=== PATIENT | female | born 1990 | race Caucasian/White ===

== ENCOUNTER 2017-04-10 20:34 | Emergency (ER) | payer OTHER ==
[~2017-04-10] VITALS: Ht 162.6 cm; Wt 95.6 kg
[~2017-04-10 20:34] MED LIST: ALBU0.08 NEB; BENZ100 PO; CLIN1CAP6 PO; IPRA0.02 NEB; NEBULIZER/ADULT1 KIT; VENTAER INH
[2017-04-10 20:37] VITALS: BP 129/78; PULSE 85; RESP 18; TEMP 98.4; O2SAT 97
[2017-04-10] MEDS ORDERED: SODIUM CHLOR 0.9% 1000 ML INJ 1,000 ML IV ONE (21:24)
--- NOTE | 2017-04-10 21:24 | PD ---
HPI Chief Complaint: Dizziness Time Seen by Provider: 21:24 Travel History International Travel<30 days: No Contact w/Intl Traveler<30days: No Traveled to known affect area: No History of Present Illness HPI Patient is a 27-year-old female with a history of sleep apnea presents emergency department with headache for the past 5 days now with some mild vertiginous symptoms. Patient states that she's had a history of migraines before but this is somewhat different feels like there something behind her left eye. Denies any visual loss focalized weakness or abrupt onset. Patient states she is not yet been fitted with her CPAP mass. She's tried multiple doses of Aleve at home without relief. She talked with her repair welder Dr. King who recommended that if the headache lasted for 5 days to come into the emergency department. Denies any fever chest pain abdominal pain PFSH Past Medical History Hx Anticoagulant Therapy: No Arthritis: No Asthma: Yes Autoimmune Disease: No Blood Disorders: No Anxiety: Yes Depression: Yes (few years ago deal with it naturally) Cancer: No Cardiovascular Problems: No Chemotherapy: No Cerebrovascular Accident: No Diabetes: No Diminished Hearing: No Endocrine: No Gastrointestinal Disorders: No Genitourinary: Yes Immune Disorder: No Implanted Vascular Access Dvce: No Musculoskeletal: No Neurologic: No Psychiatric: No Reproductive: No Respiratory: Yes Immunizations Current: Yes Migraines: Yes Seizures: No Thyroid Disease: No ?: Not LMP: on it now : 0 Para: 0 Ovarian Cysts: Yes (2006) Past Surgical History Body Medical Devices: NOSE & TONGUE PIERCINGS Hysterectomy: No Oral Surgery: Yes (TONGUE CORD) Thoracic Surgery: Yes (BREAST REDUCTION) Tonsillectomy: Yes (ADNOIDS ALSO REMOVED) Other Surgery: Yes Social History Alcohol Use: Yes ("VERY RARE") Tobacco Use: No (QUIT 04/2015, 1 PPD prior) Substance Use: No Allergies-Medications (Allergen,Severity, Reaction): Coded Allergies: Basil (Verified Allergy, Severe, HIVES, 08/16/16) Doxycycline (Unverified Allergy, Severe, Anaphylaxis, 08/16/16) Macrobid (Verified Allergy, Severe, Nausea/Vomiting, 08/16/16) Ciprofloxacin (Verified Allergy, Mild, VOMITING, 08/16/16) Bactrim (Verified Adverse Reaction, Mild, n/v, 08/16/16) Codeine (Verified Adverse Reaction, Mild, "I BECOME CRAZY", 08/16/16) *MDRO Multi-Drug Resistant Organism (Verified Adverse Reaction, Unknown, 08/24/16) MRSA (sputum-08/22/16); MRSA (neck-08/20/16) Reported Meds & Prescriptions Reported Meds & Active Scripts Active Albuterol Neb (Albuterol Sulfate) 2.5 Mg/3 Ml Neb 2.5 Mg NEB QID NEB 30 Days Reported Breo Ellipta Inh (Fluticasone/Vilanterol) 100-25 Mcg/Act Inh 1 Puff INH DAILY Use daily at the same time. Ventolin Hfa 18 GM Inh (Albuterol Sulfate) 90 Mcg/Act Aer 1 Puff INH Q4H PRN Review of Systems Except as stated in HPI: all other systems reviewed are Neg Physical Exam Narrative GENERAL: Well-developed well-nourished no apparent distress SKIN: Focused skin assessment warm/dry. No rash no wound HEAD: Atraumatic. Normocephalic. EYES: Pupils equal and round. No scleral icterus. No injection or drainage. His fundi bilaterally, ENT: No nasal bleeding or discharge. Mucous membranes pink and moist. NECK: Trachea midline. No JVD. CARDIOVASCULAR: Regular rate and rhythm. No murmur appreciated. RESPIRATORY: No accessory muscle use. Clear to auscultation. Breath sounds equal bilaterally. GASTROINTESTINAL: Abdomen soft, non-tender, nondistended. Hepatic and splenic margins not palpable. MUSCULOSKELETAL: No obvious deformities. No clubbing. No cyanosis. No edema. NEUROLOGICAL: Awake and alert. Cranial nerves II through XII are grossly intact and nonfocal, 5 out of 5 strength in all 4 extremity's. Cerebellar testing negative.. PSYCHIATRIC: Appropriate mood and affect; insight and judgment normal. Data Data Last Documented VS Vital Signs Date Time Temp Pulse Resp B/P Pulse Ox O2 Delivery O2 Flow Rate FiO2 04/10/17 23:13 69 20 112/68 98 04/10/17 20:37 98.4 Orders Urinalysis - C+S If Indicated (04/10/17 21:13) Ed Urine Pregnancytest Poc (04/10/17 21:13) Complete Blood Count With Diff (04/10/17 21:24) Comprehensive Metabolic Panel (04/10/17 21:24) Ecg Monitoring (04/10/17 21:24) Iv Access Insert/Monitor (04/10/17 21:24) Oximetry (04/10/17 21:24) Sodium Chloride 0.9% Flush (Ns Flush) (04/10/17 21:30) Ketorolac Inj (Toradol Inj) (04/10/17 21:30) Prochlorperazine Inj (Compazine Inj) (04/10/17 21:30) Diphenhydramine Inj (Benadryl Inj) (04/10/17 21:30) Sodium Chlor 0.9% 1000 Ml Inj (Ns 1000 M (04/10/17 21:24) Electrocardiogram (04/10/17 ) Labs Laboratory Tests Test 04/10/17 22:20 White Blood Count 8.1 TH/MM3 Red Blood Count 4.29 MIL/MM3 Hemoglobin 12.8 GM/DL Hematocrit 37.6 % Mean Corpuscular Volume 87.6 FL Mean Corpuscular Hemoglobin 29.7 PG Mean Corpuscular Hemoglobin 34.0 % Concent Red Cell Distribution Width 12.4 % Platelet Count 213 TH/MM3 Mean Platelet Volume 9.4 FL Neutrophils (%) (Auto) 59.9 % Lymphocytes (%) (Auto) 31.1 % Monocytes (%) (Auto) 7.1 % Eosinophils (%) (Auto) 1.4 % Basophils (%) (Auto) 0.5 % Neutrophils # (Auto) 4.9 TH/MM3 Lymphocytes # (Auto) 2.5 TH/MM3 Monocytes # (Auto) 0.6 TH/MM3 Eosinophils # (Auto) 0.1 TH/MM3 Basophils # (Auto) 0.0 TH/MM3 CBC Comment DIFF FINAL Differential Comment Sodium Level 144 MEQ/L Potassium Level 3.7 MEQ/L Chloride Level 108 MEQ/L Carbon Dioxide Level 28.7 MEQ/L Anion Gap 7 MEQ/L Blood Urea Nitrogen 11 MG/DL Creatinine 0.72 MG/DL Estimat Glomerular Filtration 96 ML/MIN Rate Random Glucose 80 MG/DL Calcium Level 8.8 MG/DL Total Bilirubin 0.2 MG/DL Aspartate Amino Transf 11 U/L (AST/SGOT) Alanine Aminotransferase 18 U/L (ALT/SGPT) Alkaline Phosphatase 55 U/L Total Protein 6.9 GM/DL Albumin 3.6 GM/DL MDM Medical Decision Making Medical Screen Exam Complete: Yes Emergency Medical Condition: Yes Interpretation(s) EKG shows normal sinus rhythm normal axis normal R-wave progression. No concerning ST segment changes. Intervals within normal limits. This a normal EKG. Differential Diagnosis Headache, anemia, unlikely, Narrative Course Patient roomed in emergency department, adamantly declined sexual activity and possibility for . She was given Benadryl and Compazine and on revisit she is sleeping soundly. Neurologic exam is completely within normal limits and therefore no indication for CAT scan at this time. Patient's hemoglobin was within normal limits electrolytes are within normal limits. I discussed the results of patient's she is sleeping soundly and in no distress. She stable for discharge and outpatient workup. She does have Imitrex at home. Diagnosis Primary Impression: Headache Disposition: 01 DISCHARGE HOME Condition: Stable Malachi Mir MD Apr 10, 2017 21:24
[2017-04-10] MEDS ORDERED: SODIUM CHLORIDE 0.9% FLUSH 10 ML FLUSH IVF PRN (21:30)
[2017-04-10] MEDS ORDERED: KETOROLAC TROMETHAMINE 30 MG/ML (IVP) VIAL IVP ONE (21:30)
[2017-04-10] MEDS ORDERED: diphenhydrAMINE HCL 50 MG/ML VIAL IVP ONE (21:30)
[2017-04-10] MEDS ORDERED: PROCHLORPERAZINE INJ 10 MG/2 ML VIAL IVP ONE (21:30)
[2017-04-10] MEDS ORDERED: FLUT1INH INH (21:52)
[2017-04-10 22:20] VITALS: BP 118/78; PULSE 72; RESP 20; O2SAT 99
[2017-04-10 22:29] LABS: AUTOMATED NEUTROPHIL # 4.9 TH/MM3 (1.8-7.7); BASOPHIL % 0.5 % (0.0-2.0); EOSINOPHIL # 0.1 TH/MM3 (0-0.4); EOSINOPHIL % 1.4 % (0.0-4.0); HEMATOCRIT 37.6 % (35.0-46.0); HEMO FLAGS DIFF FINAL; LYMPH % 31.1 % (9.0-44.0); LYMPHOCYTE # 2.5 TH/MM3 (1.0-4.8); MEAN CELL VOLUME 87.6 FL (80.0-100.0); MEAN CORPUSCULAR HEMOGLOBIN 29.7 PG (27.0-34.0); MONO % 7.1 % (0.0-8.0); NEUT % 59.9 % (16.0-70.0); PLATELET COUNT 213 TH/MM3 (150-450); RED BLOOD COUNT 4.29 MIL/MM3 (4.00-5.30); RED CELL DISTRIBUTION WIDTH 12.4 % (11.6-17.2); WHITE BLOOD COUNT 8.1 TH/MM3 (4.0-11.0)
[2017-04-10 22:37] LABS: CHLORIDE 108 MEQ/L (98-107); POTASSIUM 3.7 MEQ/L (3.5-5.1); SODIUM (NA) 144 MEQ/L (136-145)
[2017-04-10 22:41] LABS: ANION GAP 7 MEQ/L (5-15); BICARBONATE 28.7 MEQ/L (21.0-32.0); BLOOD UREA NITROGEN 11 MG/DL (7-18)
[2017-04-10 22:44] LABS: ALT (GPT) 18 U/L (10-53); AST (GOT) 11 U/L (15-37); GLOMERULAR FILTRATION RATE 96 ML/MIN (>89)
[2017-04-10 22:46] LABS: TOTAL BILIRUBIN ADULT 0.2 MG/DL (0.2-1.0)
[2017-04-10 22:47] LABS: ALKALINE PHOSPHATASE 55 U/L (45-117)
[2017-04-10 23:13] VITALS: BP 112/68
--- NOTE | 2017-04-11 12:16 | EKG ---
Date Performed: 04/10/2017 Time Performed: 21:32:05 PTAGE: 27 years EKG: Sinus rhythm NORMAL ECG PREVIOUS TRACING : 08/19/2016 10.37 Compared to prior tracing no significant change DOCTOR: Saleem Jackson Interpretating Date/Time 04/11/2017 12:12:38
== END 2017-04-10 23:17 | disposition home or self-care (01) ==
LOC: PHED 20:34
DX: R51 Headache (principal)
CPT/HCPCS: 80053; 85025; 93005; 96374; 96375; 99284; J0780; J1200; J1885; J7030

== ENCOUNTER 2017-05-25 08:04 | Observation (INO) | payer OTHER ==
[~2017-05-25] VITALS: Ht 162.6 cm; Wt 99.5 kg
[~2017-05-25 08:04] MED LIST changes: -BENZ100 PO; -CLIN1CAP6 PO; +FLUT1INH INH; -IPRA0.02 NEB; +LIDOCAINE 1%/EPINEPHrine 1:100,000 SOLN 20 ML VIAL ONE; +LORA-373 PO; +MECL-62 PO; -NEBULIZER/ADULT1 KIT; +OLOP.1%O EACH EYE; +OXYMETAZOLINE HCL 0.05% 15 ML NASAL SPRAY ONE
[2017-05-25 08:39] VITALS: BP 129/74; PULSE 79; RESP 16; TEMP 98.1; O2SAT 99
[2017-05-25] MEDS ORDERED: TYLE325T PO (08:55)
[2017-05-25] MEDS ORDERED: CHLORHEXIDINE GLUCONATE 2 % 1 PACK (2 CLOTHS) TOPICAL PRN (09:15)
[2017-05-25] MEDS ORDERED: SODIUM CHLORID 0.9% 500 ML IV PRN (09:15)
[2017-05-25] MEDS ORDERED: POVIDONE IODINE 5% (ANTISEPSIS KIT) 4 APPLICATIONS EACH NARE PRN (09:15)
[2017-05-25] MEDS ORDERED: METOPROLOL TARTRATE 25 MG TAB PO PRN (09:15)
[2017-05-25] MEDS ORDERED: LACTATED RINGER'S 1000 ML IV PRN (09:15)
[2017-05-25] MEDS ORDERED: INSULIN HUMAN REGULAR 1,000 UNITS/10 ML VIAL SQ PRN (09:15)
[2017-05-25] MEDS ORDERED: CLINDAMYCIN 600 MG/NS 100 ML IV PRN ×2 (09:15)
[2017-05-25] MEDS ORDERED: SODIUM CHLORIDE 0.9% INJ 100 ML ONE (09:19)
[2017-05-25] MEDS ORDERED: MIDAZOLAM HCL 2 MG/2 ML VIAL ONE (09:19)
[2017-05-25] MEDS ORDERED: CLINDAMYCIN PHOS 900 MG/6 ML VIAL ONE (09:19)
[2017-05-25] MEDS ORDERED: FAMOTIDINE 20 MG/2 ML VIAL ONE (09:19)
[2017-05-25] MEDS ORDERED: PROPOFOL 200 MG/20 ML AMP IV ONE (12:00)
[2017-05-25] MEDS ORDERED: ONDANSETRON HCL 4 MG/2 ML VIAL IV PUSH ONE (12:00)
[2017-05-25] MEDS ORDERED: fentaNYL CITRATE 250 MCG/5 ML AMP ONE (13:44)
[2017-05-25] MEDS ORDERED: PROMETHAZINE INJ 25 MG/ML VIAL ONE (14:12)
[2017-05-25] MEDS ORDERED: LORazepam 2 MG/ML VIAL ONE (14:41)
[2017-05-25 16:30] VITALS: BP 119/79; PULSE 67; RESP 18; TEMP 97.1; O2SAT 100
[2017-05-25] MEDS ORDERED: PROMETHAZINE INJ 25 MG/ML VIAL IM PRN (16:45)
[2017-05-25] MEDS ORDERED: LORazepam 2 MG/ML VIAL IV PRN (16:45)
[2017-05-25 16:49] VITALS: O2SAT 100
[2017-05-25] MEDS ORDERED: ONDANSETRON HCL 4 MG/2 ML VIAL IV PUSH PRN (17:45)
[2017-05-25] MEDS: LACTATED RINGER'S 1000 ML INJ 1,000 ML IV SCH (17:50)
[2017-05-25 19:58] VITALS: O2SAT 100
[2017-05-25 20:00] VITALS: BP 128/81; PULSE 102; RESP 20; TEMP 98.7; O2SAT 100
[2017-05-25] MEDS: CLINDAMYCIN 600 MG/NS 100 ML IV SCH ×2 (22:05)
[2017-05-25] MEDS: ACETAMINOPHEN/HYDROcodone 325 MG/5 MG TAB PO PRN (22:18)
[2017-05-26] VITALS: BP 153/94; PULSE 97; RESP 20; TEMP 97.7; O2SAT 100
[2017-05-26 04:00] VITALS: BP 142/97; PULSE 76; RESP 16; TEMP 98.6; O2SAT 99
[2017-05-26] MEDS: ACETAMINOPHEN/HYDROcodone 325 MG/5 MG TAB PO PRN ×2 (04:39→08:47)
[2017-05-26] MEDS: CLINDAMYCIN 600 MG/NS 100 ML IV SCH ×2 (04:40)
[2017-05-26] MEDS: LACTATED RINGER'S 1000 ML INJ 1,000 ML IV SCH (06:15)
[2017-05-26 07:41] VITALS: O2SAT 100; O2SAT 99
[2017-05-26 08:00] VITALS: BP 148/81; PULSE 77; RESP 18; TEMP 98.1; O2SAT 100
--- NOTE | 2017-05-26 15:56 | MP ---
cc: ANOOP CALLEJAS M.D. DATE OF SURGERY 05/25/[address] Anoop callejas PREOPERATIVE DIAGNOSES 1. Nasal airway obstruction. 2. Nasal septal deviation. 3. Chronic sinus headache. POSTOPERATIVE DIAGNOSES 1. Nasal airway obstruction. 2. Nasal septal deviation. 3. Chronic sinus headache. OPERATION PERFORMED 1. Open repair nasal septal fracture. 2. Bilateral submucosal resection of inferior turbinates. 3. Bilateral endoscopic excision of solomon bullosa. INDICATION The indications are documented in the history and physical. DESCRIPTION OF OPERATION The patient was taken to OR #2 and placed in the supine position. Following induction of general anesthesia and intubation the nose was packed bilaterally with cotton pledgets saturated in 0.05% Oxymetazoline and the nasal septum and inferior turbinates were injected with a total of 60 ml of 1% Xylocaine with epinephrine 1:100,000. She was then prepped and draped for surgery. Packing was removed and a hemitransfixion incision was made in the left nasal vestibule and through this incision the mucosa of septum was elevated bilaterally as far as the junction of the bony cartilaginous septum. This exposed the quadrangular cartilage quadrangular cartilage which showed evidence of old fracture and it was deviated to the right superiorly into the left inferior along the junction of the cartilage and maxillary crest. A cumulative area of 2 x 2 cm was removed preserving 1.5 cm dorsal and caudal cartilaginous struts. When this was completed the mucosa of septum was elevated from the bony septum and from the maxillary crest. The bony septum was removed using Sahu Otto forceps and a [place] septal forceps. The maxillary crest was removed using a closed Sahu Otto forceps. When this was completed, the incision was closed using a running suture of 4-0 chromic and the mucosal layers of septum were approximated to each other with a quilting stitch of 4-0 plain gut. The inferior turbinates were addressed next. They were fractured out medially. A stab incision is made on the anterior end of the left inferior turbinate and through this incision the Olympus power turbinate debrider was inserted and then advanced posteriorly along the medial surface of the conchal bone. The debrider was then activated as it was withdrawn from the submucosal space of the inferior turbinates and then reinserted into the pocket and withdrawn again this time with the bipolar cautery activated. Additional cautery was made at the site of the stab incision. The right inferior turbinate was operated in the same fashion. Both inferior turbinates were then relateralized to the lateral nasal wall. From this point forward the operation was completed using endoscopic visualization. The attachments of the middle turbinates were injected with additional 6 ml of the 1% Xylocaine with epinephrine solution. The left side was addressed first. It was amputated along its superior attachment using through cutting Blakesley forceps and also with the power microdebrider. This was carried back as far as the posterior end of the middle turbinate. The posterior end was then cauterized with the suction Bovie for hemostasis. The right middle turbinate was then removed in the same fashion. These were passed off the field for histological examination separately labeled as left and right solomon bullosa. The nose was then irrigated with saline and was packed with 5.5 cm Rapid Ehino packs in the inferior one half of the nasal vault. These were inflated with 5 ml air of each and the procedure was terminated. The patient was reversed from anesthesia and taken to recovery in good condition. There were no complications. Blood loss was 60 ml. MD GIA Potter/RICHARD /2:51 PM /3:34 PM
[2017-05-27] MEDS ORDERED: CEFP250T PO (15:35)
== END 2017-05-26 10:33 | disposition home or self-care (01) ==
LOC: PHSDC 08:04 → PH3A 16:26
PROVIDERS: ADMIT Otolaryngology; ATTEND Otolaryngology
DX: J34.89 Other specified disorders of nose and nasal sinuses (principal); J34.2 Deviated nasal septum; J32.9 Chronic sinusitis, unspecified; R51 Headache; J34.3 Hypertrophy of nasal turbinates
CPT/HCPCS: 00160; 30140; 30520; 31240; 88305; 88311; 94762; G0378; J2060; J2250; J2405; J2550; J3010; J7120

== ENCOUNTER 2017-05-27 14:35 | Inpatient (IN) | payer OTHER ==
[~2017-05-27] VITALS: Ht 162.6 cm; Wt 101.7 kg
[~2017-05-27 14:35] MED LIST changes: -LIDOCAINE 1%/EPINEPHrine 1:100,000 SOLN 20 ML VIAL ONE; -OXYMETAZOLINE HCL 0.05% 15 ML NASAL SPRAY ONE; +TYLE325T PO
[2017-05-27 15:00] VITALS: BP 131/78; PULSE 88; RESP 16; TEMP 98.1; O2SAT 98
[2017-05-27] MEDS ORDERED: CEFP250T PO (15:35)
[2017-05-27] MEDS ORDERED: CLINDAMYCIN PHOS 600 MG/4 ML VIAL ONE (15:44)
[2017-05-27] MEDS ORDERED: SODIUM CHLORID 0.9% 500 ML IV PRN (15:45)
[2017-05-27] MEDS ORDERED: CLINDAMYCIN 600 MG/NS 100 ML IV SCH ×2 (15:45)
[2017-05-27] MEDS ORDERED: LACTATED RINGER'S 1000 ML IV PRN (15:45)
[2017-05-27] MEDS ORDERED: METOPROLOL TARTRATE 25 MG TAB PO PRN (15:45)
[2017-05-27] MEDS ORDERED: CHLORHEXIDINE GLUCONATE 2 % 1 PACK (2 CLOTHS) TOPICAL PRN (15:45)
[2017-05-27] MEDS ORDERED: SODIUM CHLORIDE 0.9% INJ 100 ML ONE (15:45)
[2017-05-27] MEDS ORDERED: POVIDONE IODINE 5% (ANTISEPSIS KIT) 4 APPLICATIONS EACH NARE PRN (15:45)
[2017-05-27] MEDS ORDERED: INSULIN HUMAN REGULAR 1,000 UNITS/10 ML VIAL SQ PRN (15:45)
[2017-05-27] MEDS ORDERED: ACETAMINOPHEN/HYDROcodone 325 MG/5 MG TAB PO PRN (19:45)
[2017-05-27 20:00] VITALS: BP 123/77; PULSE 87; RESP 17; TEMP 97.5; O2SAT 98
[2017-05-27] MEDS: ACETAMINOPHEN/HYDROcodone 325 MG/5 MG TAB PO PRN (20:18)
[2017-05-27] MEDS: LACTATED RINGER'S 1000 ML INJ 1,000 ML IV SCH (20:19)
[2017-05-27] MEDS: acetaZOLAMIDE SEQUELS 500 MG SUSTAINED RELEASE CAP PO SCH (20:19)
[2017-05-28] VITALS (8 sets, daily range): BP systolic 112–137; BP diastolic 71–87; PULSE 82–111; RESP 16–18; TEMP 96.9–99.7; O2SAT 93–99
[2017-05-28] MEDS: ACETAMINOPHEN/HYDROcodone 325 MG/5 MG TAB PO PRN ×3 (02:17→22:29)
[2017-05-28] MEDS ORDERED: INSULIN HUMAN REGULAR 1,000 UNITS/10 ML VIAL SQ PRN (05:15)
[2017-05-28] MEDS ORDERED: LACTATED RINGER'S 1000 ML IV PRN (05:15)
[2017-05-28] MEDS ORDERED: CHLORHEXIDINE GLUCONATE 2 % 1 PACK (2 CLOTHS) TOPICAL PRN (05:15)
[2017-05-28] MEDS ORDERED: EPINEPHrine HCL (1:1000) 1 MG/ML VIAL ONE (07:05)
[2017-05-28] MEDS ORDERED: THROMBIN (TOPICAL) 5,000 UNIT VIAL ONE (07:05)
[2017-05-28] MEDS ORDERED: LIDOCAINE 1%/EPINEPHrine 1:100,000 SOLN 20 ML VIAL ONE ×2 (07:06→07:07)
[2017-05-28] MEDS ORDERED: BACITRACIN TOP OINT 15 GM TUBE ONE (07:06)
[2017-05-28] MEDS ORDERED: OXYMETAZOLINE HCL 0.05% 15 ML NASAL SPRAY ONE ×2 (07:06→08:16)
[2017-05-28] MEDS ORDERED: APREPITANT 40 MG CAP ONE (07:13)
[2017-05-28] MEDS ORDERED: FAMOTIDINE 20 MG/2 ML VIAL ONE (07:17)
[2017-05-28] MEDS ORDERED: MIDAZOLAM HCL 2 MG/2 ML VIAL ONE ×3 (07:17→12:36)
[2017-05-28] MEDS ORDERED: DEXAMETHASONE SOD PHOS 4 MG/ML VIAL ONE (07:17)
[2017-05-28] MEDS ORDERED: ACETAMINOPHEN 1000 MG/100 ML VIAL IV ONE (07:30)
[2017-05-28] MEDS: acetaZOLAMIDE SEQUELS 500 MG SUSTAINED RELEASE CAP PO SCH ×2 (08:36→22:30)
[2017-05-28] MEDS: DOCUSATE CALCIUM 240 MG CAP PO SCH (08:36)
[2017-05-28] MEDS ORDERED: DO NOT ADM ANY ANTICOAGULANT DRUGS PRN (09:15)
[2017-05-28] MEDS ORDERED: *morphine SULFATE 8 MG/ML PERIprocedure ONLY ONE (09:21)
[2017-05-28] MEDS ORDERED: MORPHINE SULFATE 4 MG/ML INJ ONE (09:54)
[2017-05-28 09:58] LABS: AUTOMATED NEUTROPHIL # 6.7 TH/MM3 (1.8-7.7); BASOPHIL % 0.1 % (0.0-2.0); EOSINOPHIL # 0.1 TH/MM3 (0-0.4); EOSINOPHIL % 0.9 % (0.0-4.0); HEMATOCRIT 38.8 % (35.0-46.0); HEMO FLAGS DIFF FINAL; LYMPH % 11.7 % (9.0-44.0); LYMPHOCYTE # 0.9 TH/MM3 (1.0-4.8); MEAN CELL VOLUME 91.5 FL (80.0-100.0); MEAN CORPUSCULAR HEMOGLOBIN 30.2 PG (27.0-34.0); MONO % 1.5 % (0.0-8.0); NEUT % 85.8 % (16.0-70.0); PLATELET COUNT 187 TH/MM3 (150-450); RED BLOOD COUNT 4.24 MIL/MM3 (4.00-5.30); RED CELL DISTRIBUTION WIDTH 13.7 % (11.6-17.2); WHITE BLOOD COUNT 7.8 TH/MM3 (4.0-11.0)
[2017-05-28] MEDS: LACTATED RINGER'S 1000 ML INJ 1,000 ML IV SCH ×4 (10:00→18:29)
[2017-05-28 10:06] LABS: PROTHROMBIN TIME - PATIENT 10.7 SEC (9.8-11.6)
[2017-05-28] MEDS ORDERED: *PROMETHAZINE 25 MG/ML VIAL PERIprocedural use ONLY ONE (10:51)
[2017-05-28] MEDS ORDERED: PROPOFOL 200 MG/20 ML AMP IV ONE (12:00)
[2017-05-28] MEDS ORDERED: ONDANSETRON HCL 4 MG/2 ML VIAL IV PUSH ONE (12:00)
[2017-05-28] MEDS ORDERED: LACTATED RINGER'S 1000 ML INJ 1,000 ML IV ONE (12:00)
[2017-05-28] MEDS ORDERED: fentaNYL CITRATE 250 MCG/5 ML AMP ONE (12:37)
[2017-05-28] MEDS ORDERED: ceFAZolin 2 GM PREMIX 50 ML ONE (12:37)
--- NOTE | 2017-05-28 13:11 | PD.RAD ---
Post Procedure Progress Note Pre Procedure Diagnosis: (1) Headache Post Procedure Diagnosis: (1) Headache Procedure Date: May 28, 2017 Supervising Radiologist: Jed Francis Proceduralist/Assist: Nydia Jon, RT(R), Omaira Chavez RT(R)() Anesthesia: Conscious Sedation Plan of Activity Patient to Unit: Nursing Unit Patient Condition: Good Additional Comments: L3-4 puncture. CSF drain tip at T10. See PACS Report for procedural detail/treatment Jed Francis MD May 28, 2017 13:11
--- NOTE | 2017-05-28 14:48 | RADRPT ---
EXAM DATE/TIME: 05/28/2017 12:31 [facility] COMPARISON: No previous studies available for comparison. INDICATIONS : Patient presents post operatively with cerebral spinal fluid rhinorrhea in need of lumbar drain place ment. MEDICAL HISTORY : Asthma Anxiety Migraines Ovarian cysts SURGIAL HISTORY : Oral sx Breast reduction Tonsillectomy Post-op CSF rhinorrhea ENCOUNTER: Initial ACUITY: 2 days PAIN SCORE: 0/10 LOCATION: N/A LUMBAR PUNCTURE TIME: 12:57 hours FLUORO TIME: 0.8 minutes IMAGE SERIES: 0 SEDATION TIME: 45 minutes LEVEL: Tip of lumbar drain was placed at T10 ? cm of water DEVICE(S): 1.) 5 English lumbar drain catheter PROCEDURE : 1. Fluoroscopically guided lumbar drain placement. 2. Conscious sedation with continuous EKG and oximetry monitoring. The risks, benefits and alternatives to the procedure were explained and verbal and written consent w as obtained. The site was prepped in sterile fashion. Full sterile technique was used, including ca p, mask, sterile gloves and gown and a large sterile sheet. Hand hygiene and 2% chlorhexidine and/or betadine/alcohol prep was utilized per protocol for cutaneous antisepsis. The skin and subcutaneous tissues were infiltrated with local anesthetic solution. With fluoroscopic guidance the lumbar thecal sac was punctured with a 14 gauge Touhy needle and a lum bar drain was placed with its tip at the level as described above and the catheter was sutured in gonsalo ce. CSF was identified returning from the catheter at the termination of the procedure. Conscious sedation was performed with the prescribed dosages and duration as above in the presence of an independent trained radiology nurse to assist in the monitoring of the patient. EKG and oximetry remained stable throughout the procedure. The patient tolerated the procedure well and there were n o complications. The patient was sent to post anesthesia recovery in stable condition. CONCLUSION: Uncomplicated lumbar drain placement as above. Jed Francis MD on May 28, 2017 at 14:44 Board Certified Radiologist. This report was verified electronically.
--- NOTE | 2017-05-28 17:45 | PD.CONS ---
HPI Service Neurosurg Consult Requested By dr Bunn Reason for Consult CSF leak Primary Care Physician Silviano Munguia MD History of Present Illness This is a 27-year-old female brought to [place] by for an elective intranasal procedure. She develop a cerebral spinal fluid leak which was explored by . No evidence of infection. No evidence of meningitis. Neurosurgical consultation was requested Review of Systems Unobtainable as the patient is under general anesthesia Past Family Social History Allergies: Coded Allergies: Basil (Verified Allergy, Severe, HIVES, 05/25/17) Ciprofloxacin (Verified Allergy, Severe, Hives, 05/25/17) "FELT LIKE SOMEONE WAS TEARING MY MUSCLES" Doxycycline (Unverified Allergy, Severe, Anaphylaxis, 05/25/17) Levaquin (Verified Allergy, Severe, Hives, 05/25/17) "FELT LIKE SOMEONE WAS TEARING MY MUSCLES" Macrobid (Verified Allergy, Severe, Nausea/Vomiting, 05/25/17) Pecan (Verified Allergy, Severe, Hives, 05/25/17) Zyvox (Verified Allergy, Severe, Anaphylaxis, 05/25/17) Bactrim (Verified Adverse Reaction, Mild, n/v, 05/25/17) Codeine (Verified Adverse Reaction, Mild, "I BECOME CRAZY", 05/25/17) *MDRO Multi-Drug Resistant Organism (Verified Adverse Reaction, Unknown, ) MRSA (sputum-08/22/16); MRSA (neck-08/20/16) Uncoded Allergies: PEANUT BUTTER (Allergy, Severe, Hives, 05/25/17) ALL NUTS (Allergy, Unknown, 05/27/17) Past Medical History Unobtainable as the patient is under general anesthesia Past Surgical History Unobtainable as the patient is under general anesthesia Reported Medications Unobtainable as the patient is under general anesthesia Active Ordered Medications Current Medications Lactated Ringer's 1,000 ml @ 30 mls/hr Q24H PRN IV SEE LABEL COMMENTS Last administered on 05/27/17t 15:15; Start 05/27/17 at 15:45; Stop 05/27/17 at 19:41; Status DC Sodium Chloride (NS 500 ml Inj) 500 ml @ 30 mls/hr [id number] PRN IV SEE LABEL COMMENTS; Start 05/27/17 at 15:45; Stop 05/27/17 at 19:41; Status DC Metoprolol Tartrate (Lopressor) 25 mg MEDICAL OFFICE TECHNICIAN PRN PO SEE LABEL COMMENTS; Start 05/27/17 at 15:45; Stop 05/30/17 at 15:44 Povidone Iodine (Betadine 5% Antisepsis Kit) 1 applic MEDICAL OFFICE TECHNICIAN PRN EACH NARE SEE LABEL COMMENTS; Start 05/27/17 at 15:45; Stop 05/30/17 at 15:44 Chlorhexidine Gluconate (Chlorhexidine 2% Cloth) 3 pack MEDICAL OFFICE TECHNICIAN PRN TOPICAL SEE LABEL COMMENTS; Start 05/27/17 at 15:45; Stop 05/28/17 at 05:02; Status DC Insulin Human Regular See Protocol Table ... MEDICAL OFFICE TECHNICIAN PRN SQ SEE PROTOCOL TABLE ; Start 05/27/17 at 15:45; Stop 05/28/17 at 05:02; Status DC Clindamycin Phosphate/Sodium Chloride (Cleocin Inj/NS Inj) 104 ml @ 208 mls/hr MEDICAL OFFICE TECHNICIAN IV ; Start 05/27/17 at 15:45; Stop 05/28/17 at 15:44; Status DC Clindamycin Phosphate 600 mg 600 mg STK-MED ONCE .ROUTE ; Start 05/27/17 at 15:44 ; Stop 05/27/17 at 15:45; Status DC Sodium Chloride 100 ml @ As Directed STK-MED ONCE .ROUTE ; Start 05/27/17 at 15: 45; Stop 05/27/17 at 15:46; Status DC Lactated Ringer's (Lr 1000 ml Inj) 1,000 ml @ 60 mls/hr [id number] IV Last administered on 05/27/17t 20:19; Start 05/27/17 at 20:00 Acetaminophen/ Hydrocodone Bitart ([place] 5-325 Mg) 1 tab Q6H PRN PO PAIN SCALE 1 TO 5; Start 05/27/17 at 19:45; Stop 05/28/17 at 09:43; Status DC Acetaminophen/ Hydrocodone Bitart ([place] 5-325 Mg) 2 tab Q6H PRN PO PAIN SCALE 6 TO 10 Last administered on 05/28/17 02:17; Start 05/27/17 at 19:45; Stop 05/28/17 at 09:43; Status DC Alprazolam (Xanax) 0.25 mg Q8H PRN PO ANXIETY; Start 05/27/17 at 19:45 Docusate Calcium (Surfak) 240 mg DAILY PO ; Start 05/28/17 at 09:00 Acetazolamide 500 mg 500 mg BID PO ; Start 05/27/17 at 21:00 Lactated Ringer's (Lr 1000 ml Inj) 1,000 ml @ 30 mls/hr Q24H PRN IV SEE LABEL COMMENTS; Start 05/28/17 at 05:15; Stop 05/31/17 at 05:14 Chlorhexidine Gluconate (Chlorhexidine 2% Cloth) 3 pack MEDICAL OFFICE TECHNICIAN PRN TOPICAL SEE LABEL COMMENTS; Start 05/28/17 at 05:15; Stop 05/31/17 at 05:14 Insulin Human Regular (NovoLIN R INJ) See Protocol Table ... MEDICAL OFFICE TECHNICIAN PRN SQ SEE PROTOCOL TABLE; Start 05/28/17 at 05:15; Stop 05/31/17 at 05:14 Thrombin (Thrombin Top Soln) 10,000 units STK-MED ONCE .ROUTE ; Start 05/28/17 at 07:05; Stop 05/28/17 at 07:06; Status DC Epinephrine HCl (Adrenalin (1:1000) Inj) 1 mg STK-MED ONCE .ROUTE ; Start at 07:05; Stop 05/28/17 at 07:06; Status DC Oxymetazoline HCl (Afrin 0.05% [place]) 15 spray STK-MED ONCE .ROUTE Last administered on 05/28/17 07:46; Start 05/28/17 at 07:06; Stop 05/28/17 at 07:07; Status DC Bacitracin (Baciguent Oint) 15 applic STK-MED ONCE .ROUTE ; Start 05/28/17 at 07: 06; Stop 05/28/17 at 07:07; Status DC Lidocaine/ Epinephrine (Xylocaine-Epi 1%-1:100,000 Inj) 60 ml STK-MED ONCE .ROUTE Last administered on 05/28/17 07:46; Start 05/28/17 at 07:06; Stop at 07:07; Status DC Lidocaine/ Epinephrine (Xylocaine-Epi 1%-1:100,000 Inj) 20 ml STK-MED ONCE .ROUTE ; Start 05/28/17 at 07:07; Stop 05/28/17 at 07:08; Status DC Aprepitant (Emend) 40 mg STK-MED ONCE .ROUTE Last administered on 05/28/17 07: 14; Start 05/28/17 at 07:13; Stop 05/28/17 at 07:14; Status DC Midazolam HCl (Versed Inj) 2 mg STK-MED ONCE .ROUTE ; Start 05/28/17 at 07:17; Stop 05/28/17 at 07:18; Status DC Dexamethasone Sodium Phosphate (Decadron Inj) 8 mg STK-MED ONCE .ROUTE ; Start 05/28/17 at 07:17; Stop 05/28/17 at 07:18; Status DC Famotidine (Pepcid Inj) 20 mg STK-MED ONCE .ROUTE ; Start 05/28/17 at 07:17; Stop 05/28/17 at 07:18; Status DC Acetaminophen (Ofirmev Inj) 1,000 mg STK-MED ONCE IV ; Start 05/28/17 at 07:30; Stop 05/28/17 at 07:31; Status DC Oxymetazoline HCl (Afrin 0.05% [place]) 30 spray STK-MED ONCE .ROUTE ; Start 05/28/17 at 08:16; Stop 05/28/17 at 08:17; Status DC Morphine Sulfate (*morphine INJ PERIprocedure ONLY) 8 mg STK-MED ONCE .ROUTE Last administered on 05/28/17 09:21; Start 05/28/17 at 09:21; Stop 05/28/17 at 09: 22; Status DC Ondansetron HCl 4 mg 4 mg Q6H PRN IV PUSH NAUSEA OR VOMITING; Start 05/28/17 at 09:45 Lactated Ringer's (Lr 1000 ml Inj) 1,000 ml @ 60 mls/hr [id number] IV Last administered on 05/28/17 10:00; Start 05/28/17 at 10:00 Acetaminophen/ Hydrocodone Bitart 1 tab 1 tab Q6H PRN PO PAIN 1-10; Start at 09:45 Clindamycin Phosphate/Sodium Chloride (Cleocin Inj/NS Inj) 104 ml @ 208 mls/hr Q8H IV ; Start 05/28/17 at 15:00 Miscellaneous Information ALL NURSING DEPARTME... UNSCH PRN .XX SEE LABEL COMMENTS; Start 05/28/17 at 09:15; Stop 05/29/17 at 09:14 Fentanyl Citrate (fentaNYL INJ) 100 mcg STK-MED ONCE .ROUTE ; Start 05/28/17 at 09:54; Stop 05/28/17 at 09:55; Status DC Morphine Sulfate (Morphine Inj) 4 mg STK-MED ONCE .ROUTE ; Start 05/28/17 at 09: 54; Stop 05/28/17 at 09:55; Status DC Promethazine HCl (*PHENERGAN INJ PERIprocedural ONLY) 25 mg STK-MED ONCE .ROUTE ; Start 05/28/17 at 10:51; Stop 05/28/17 at 10:52; Status DC Midazolam HCl (Versed Inj) 2 mg STK-MED ONCE .ROUTE Last administered on 12:36; Start 05/28/17 at 12:36; Stop 05/28/17 at 12:37; Status DC Midazolam HCl (Versed Inj) 2 mg STK-MED ONCE .ROUTE Last administered on 12:36; Start 05/28/17 at 12:36; Stop 05/28/17 at 12:37; Status DC Fentanyl Citrate 250 mcg 250 mcg STK-MED ONCE .ROUTE Last administered on 12:37; Start 05/28/17 at 12:37; Stop 05/28/17 at 12:38; Status DC Cefazolin Sodium/ Dextrose (Ancef 2 Gm Premix) 50 ml @ As Directed STK-MED ONCE .ROUTE Last administered on 05/28/17 12:37; Start 05/28/17 at 12:37; Stop at 12:38; Status DC Family History Unobtainable as the patient is under general anesthesia Social History Unobtainable as the patient is under general anesthesia Physical Exam Vital Signs Vital Signs Date Time Temp Pulse Resp B/P Pulse Ox O2 Delivery O2 Flow Rate FiO2 05/28/17 16:00 99.7 107 17 137/87 94 05/28/17 14:40 95 18 135/80 98 05/28/17 14:10 102 16 136/83 93 05/28/17 13:40 90 16 129/78 99 05/28/17 13:25 98.1 111 18 131/75 99 05/28/17 11:30 100 13 163/88 100 Simple Mask 6 05/28/17 11:00 95 12 137/77 99 Simple Mask 6 05/28/17 10:30 92 12 148/78 100 Simple Mask 6 05/28/17 10:00 89 12 142/80 100 Simple Mask 6 05/28/17 09:45 85 14 139/83 100 Simple Mask 6 05/28/17 09:30 82 13 136/77 100 Simple Mask 6 05/28/17 09:15 97.9 98 14 142/80 98 Simple Mask 10 05/28/17 00:00 96.9 82 17 112/71 96 05/27/17 20:00 97.5 87 17 123/77 98 Physical Exam This is an intraoperative consultation. The patient is intubated and under general anesthesia Cranial Nerves: There is rinorrhea. Pupils , face musculature, face sensation, olfaction, visual harper, and hearing cannot be assessed due to general anesthesia. Motor: Normal response to pain under general anesthesia Reflexes: Deep tendon reflexes are abolished under general anesthesia Sensory: On examination there no is response to pain under general anesthesia Cerebellar: Examination cannot be adequately assessed under anesthesia Laboratory Laboratory Tests Test 05/28/17 09:35 White Blood Count 7.8 Red Blood Count 4.24 Hemoglobin 12.8 Hematocrit 38.8 Mean Corpuscular Volume 91.5 Mean Corpuscular Hemoglobin 30.2 Mean Corpuscular Hemoglobin 33.0 Concent Red Cell Distribution Width 13.7 Platelet Count 187 Mean Platelet Volume 8.7 Neutrophils (%) (Auto) 85.8 Lymphocytes (%) (Auto) 11.7 Monocytes (%) (Auto) 1.5 Eosinophils (%) (Auto) 0.9 Basophils (%) (Auto) 0.1 Neutrophils # (Auto) 6.7 Lymphocytes # (Auto) 0.9 Monocytes # (Auto) 0.1 Eosinophils # (Auto) 0.1 Basophils # (Auto) 0.0 CBC Comment DIFF FINAL Differential Comment Prothrombin Time 10.7 Prothromb Time International 1.0 Ratio Result Diagram: 8/4/17 0935 Imaging Last Impressions Lumbar Puncture Fluoroscopy 05/28/17 0000 Signed Impressions: Service Date/Time: Sunday, May 28, 2017 12:31 - CONCLUSION: Uncomplicated lumbar drain placement as above. Jed Francis MD Attending Statement Neuro. CSF leak. recommend packing and may benefit by placement of a lumbar drain. drain 10 cc/Hr for 48 hrs. If persistent CSF leak, she may benefit by injecting contrast media into the subarachnoid space and obtain a CT cisternogram. If this cerebrospinal fluid leak get worse and persistent over time, a craniotomy could be necessary for repair of the leak Pulmonary. aggressive pulmonary toilette, nasotracheal suction, and breathing treatments with nebulizers. PT and OT evaluation Nutrition. Oral diet Renal. monitor closely urine output, BUN and creatinine Extensive craniofacial laceration. Repaired in the emergency room. Wound care with bacitracin Endocrine. Monitor serial Acu checks and SSI as needed ID monitor for signs of infection Protonix for stress ulcer prophylaxis Jadon min and SCD's for DVT prophylaxis Ousmane Bach MD May 28, 2017 17:45
[2017-05-28] MEDS: ONDANSETRON HCL 4 MG/2 ML VIAL IV PUSH PRN (18:17)
[2017-05-28] MEDS: CLINDAMYCIN 600 MG/NS 100 ML IV SCH ×4 (18:46→22:29)
--- NOTE | 2017-05-28 21:19 | MB ---
cc: ANOOP DOSS DATE OF CONSULTATION 05/28/17 REASON FOR CONSULTATION Lumbar drain management. HISTORY OF PRESENT ILLNESS Ms. Felix is a 27-year-old female who had transnasal surgery. Apparently, she had developed a CSF leak. She has been seen by Dr. Ousmane Bach of the neurosurgery service who recommended packing and also placement of a lumbar drain to drain at 10 cc/hour for 48 minutes. The patient does have a moderate right temporal headache at the present time. No other deficits noted. NEUROLOGIC EXAMINATION Vital signs: Blood pressure 137/87, pulse 107, respiratory rate 17, temperature is 99.7 degrees. Higher cortical function is normal. Cranial nerves: Pupils are equal, reactive. The visual harper are intact. Extraocular movements are normal. There is no facial asymmetry. On motor exam she has normal strength bilaterally with no deficits. Reflexes are symmetric. LABORATORY DATA White count is 7800, hemoglobin is 12.8, hematocrit 38%, platelets 187,000. PTT 10.7, INR 1.0. IMPRESSION CSF leak status post a lumbar drain placement. I would defer to the neurosurgery service of Dr. Bach for recommendations regarding specific management of a lumbar drain. MD XU Parker/ /7:51 PM /9:01 PM
[2017-05-28] MEDS: ALPRAZolam 0.25 MG TAB PO PRN (22:29)
[2017-05-29] VITALS (7 sets, daily range): BP systolic 114–122; BP diastolic 56–81; PULSE 70–87; RESP 16–20; TEMP 95–98.7; O2SAT 95–100
[2017-05-29] MEDS: ACETAMINOPHEN/HYDROcodone 325 MG/5 MG TAB PO PRN ×5 (01:35→20:36)
[2017-05-29] MEDS: ONDANSETRON HCL 4 MG/2 ML VIAL IV PUSH PRN ×5 (02:14→22:05)
[2017-05-29] MEDS: CLINDAMYCIN 600 MG/NS 100 ML IV SCH ×6 (06:48→22:46)
[2017-05-29] MEDS: LACTATED RINGER'S 1000 ML INJ 1,000 ML IV SCH ×2 (09:01→18:31)
[2017-05-29] MEDS: DOCUSATE CALCIUM 240 MG CAP PO SCH (09:03)
[2017-05-29] MEDS: acetaZOLAMIDE SEQUELS 500 MG SUSTAINED RELEASE CAP PO SCH ×2 (09:03→20:36)
[2017-05-29] MEDS ORDERED: MORPHINE SULFATE 4 MG/ML INJ IV PRN (16:15)
[2017-05-29] MEDS: ALPRAZolam 0.25 MG TAB PO PRN (20:35)
[2017-05-30] VITALS: BP 107/56; PULSE 81; RESP 20; TEMP 97.8; O2SAT 100
[2017-05-30] MEDS: CLINDAMYCIN 600 MG/NS 100 ML IV SCH ×6 (05:34→23:25)
[2017-05-30 05:45] VITALS: BP 104/60; PULSE 89; RESP 20; TEMP 97.7; O2SAT 96
[2017-05-30] MEDS: ONDANSETRON HCL 4 MG/2 ML VIAL IV PUSH PRN ×3 (08:17→20:27)
[2017-05-30] MEDS: DOCUSATE CALCIUM 240 MG CAP PO SCH (08:19)
[2017-05-30] MEDS: acetaZOLAMIDE SEQUELS 500 MG SUSTAINED RELEASE CAP PO SCH ×2 (08:19→20:27)
[2017-05-30] MEDS: ACETAMINOPHEN/HYDROcodone 325 MG/5 MG TAB PO PRN ×3 (08:20→20:27)
[2017-05-30] MEDS: LACTATED RINGER'S 1000 ML INJ 1,000 ML IV SCH ×2 (11:01→14:08)
[2017-05-30 11:51] VITALS: BP 112/58; PULSE 82; RESP 20; TEMP 98.1; O2SAT 96
[2017-05-30 16:51] VITALS: BP 126/60; PULSE 88; RESP 20; TEMP 98.4; O2SAT 98
[2017-05-30 19:57] VITALS: BP 109/56; PULSE 86; RESP 18; TEMP 98; O2SAT 94
--- NOTE | 2017-05-30 22:07 | HHI.NSPN ---
Note Status Status: Progress Note Interval History Diagnosis CSF leak Interval History This is a 27-year-old female brought to [place] by for an elective intranasal procedure. She develop a cerebral spinal fluid leak which was explored by . No evidence of infection. No evidence of meningitis. Neurosurgical consultation was requested 05/29,. Status post lumbar drain placement. Midly unconfortable. No CSF leak 05/30. She reports severe headaches after shw got up. Denies CSF leak. Lumbar drain worsking well Labs, Micro, & Vital Signs Results Date Time Temp Pulse Resp B/P Pulse Ox O2 Delivery O2 Flow Rate FiO2 05/30/17 19:57 98.0 86 18 109/56 94 05/30/17 16:51 98.4 88 20 126/60 98 05/30/17 11:51 98.1 82 20 112/58 96 05/30/17 05:45 97.7 89 20 104/60 96 05/30/17 00:00 97.8 81 20 107/56 100 05/30/17 07:00 Intake Total 1892 ml Output Total 120 ml Balance 1772 ml Constitutional Vital Signs Date Time Temp Pulse Resp B/P Pulse Ox O2 Delivery O2 Flow Rate FiO2 05/30/17 19:57 98.0 86 18 109/56 94 05/30/17 16:51 98.4 88 20 126/60 98 05/30/17 11:51 98.1 82 20 112/58 96 05/30/17 05:45 97.7 89 20 104/60 96 05/30/17 00:00 97.8 81 20 107/56 100 05/30/17 07:00 Intake Total 1892 ml Output Total 120 ml Balance 1772 ml Review of Systems/Exam ROS Ms Felix is alert, awake and oriented to time, place and person. Speech is fluent. Higher cognitive functions are normal. No CSF leak. Cranial nerve examination demonstrates the pupils to be equal, round, and reactive to light. Extra-ocular movements are intact. Facial motor and sensory function are normal and symmetrical. Gross hearing is intact, bilaterally. The uvula is midline and elevates symmetrically with the soft palate. Sternocleidomastoid and trapezius muscles have normal and symmetrical strength. Other cranial nerves are intact. Neck is soft and supple. Cervical spine has a full range of motion in anterior flexion, extension, lateral bending, and rotation without pain. There is no tenderness to palpation to the spinous processes or paraspinal muscles. Muscle testing reveals normal bulk and tone overall without rigidity, spasticity , fasciculations, or atrophy. Muscle strength is 5/5 in all muscle groups of both upper extremities including deltoid, biceps, triceps, brachioradialis, wrist extension and steel plate printer. In the lower extremities, strength is 5/5 in both iliopsoas, quadriceps, hamstrings, plantar flexion, dorsiflexion, and extensor hallicus longus. Sensory examination is intact to light touch and sharp/dull discrimination in both the upper and lower extremities, symmetrically. Deep tendon reflexes are 2+ and symmetrical in the biceps, triceps, and brachioradialis, bilaterally, in the upper extremities. In the lower extremities , the patellar and Achilles are 2+, bilaterally. There is a bilateral plantar flexion response. Hoffmanns sign is negative. There is no clonus or other abnormal reflexes noted. Cerebellar examination is intact to [id number] test, rapid rhythmic alternating motion. There is no dysmetria, dysdiadochokinesia, truncal ataxia, or tremor. Medications Current Medications Current Medications Lactated Ringer's 1,000 ml @ 30 mls/hr Q24H PRN IV SEE LABEL COMMENTS Last administered on 05/27/17t 15:15; Start 05/27/17 at 15:45; Stop 05/27/17 at 19:41; Status DC Sodium Chloride (NS 500 ml Inj) 500 ml @ 30 mls/hr [id number] PRN IV SEE LABEL COMMENTS; Start 05/27/17 at 15:45; Stop 05/27/17 at 19:41; Status DC Metoprolol Tartrate (Lopressor) 25 mg [place] PRN PO SEE LABEL COMMENTS; Start 05/27/17 at 15:45; Stop 05/30/17 at 15:44; Status DC Povidone Iodine (Betadine 5% Antisepsis Kit) 1 applic [place] PRN EACH NARE SEE LABEL COMMENTS; Start 05/27/17 at 15:45; Stop 05/30/17 at 15:44; Status DC Chlorhexidine Gluconate (Chlorhexidine 2% Cloth) 3 pack [place] PRN TOPICAL SEE LABEL COMMENTS; Start 05/27/17 at 15:45; Stop 05/28/17 at 05:02; Status DC Insulin Human Regular See Protocol Table ... [place] [employer] PRN SQ SEE PROTOCOL TABLE ; Start 05/27/17 at 15:45; Stop 05/28/17 at 05:02; Status DC Clindamycin Phosphate/Sodium Chloride (Cleocin Inj/NS Inj) 104 ml @ 208 mls/hr [place] [employer] IV ; Start 05/27/17 at 15:45; Stop 05/28/17 at 15:44; Status DC Clindamycin Phosphate 600 mg 600 mg STK-MED ONCE .ROUTE ; Start 05/27/17 at 15:44 ; Stop 05/27/17 at 15:45; Status DC Sodium Chloride 100 ml @ As Directed STK-MED ONCE .ROUTE ; Start 05/27/17 at 15: 45; Stop 05/27/17 at 15:46; Status DC Lactated Ringer's (Lr 1000 ml Inj) 1,000 ml @ 60 mls/hr [id number] IV Last administered on 06/01/17 15:35; Start 05/27/17 at 20:00; Stop 06/03/17 at 18:08; Status DC Acetaminophen/ Hydrocodone Bitart ([place] 5-325 Mg) 1 tab Q6H PRN PO PAIN SCALE 1 TO 5; Start 05/27/17 at 19:45; Stop 05/28/17 at 09:43; Status DC Acetaminophen/ Hydrocodone Bitart ([place] 5-325 Mg) 2 tab Q6H PRN PO PAIN SCALE 6 TO 10 Last administered on 05/28/17 02:17; Start 05/27/17 at 19:45; Stop 05/28/17 at 09:43; Status DC Alprazolam (Xanax) 0.25 mg Q8H PRN PO ANXIETY Last administered on 05/29/17 20: 35; Start 05/27/17 at 19:45; Stop 06/04/17 at 12:52; Status DC Docusate Calcium (Surfak) 240 mg DAILY PO Last administered on 06/04/17 09:07 ; Start 05/28/17 at 09:00; Stop 06/04/17 at 12:52; Status DC Acetazolamide 500 mg 500 mg BID PO Last administered on 06/04/17 09:06; Start 05/27/17 at 21:00; Stop 06/04/17 at 12:52; Status DC Lactated Ringer's (Lr 1000 ml Inj) 1,000 ml @ 30 mls/hr Q24H PRN IV SEE LABEL COMMENTS; Start 05/28/17 at 05:15; Stop 05/31/17 at 05:14; Status DC Chlorhexidine Gluconate (Chlorhexidine 2% Cloth) 3 pack [place] PRN TOPICAL SEE LABEL COMMENTS; Start 05/28/17 at 05:15; Stop 05/31/17 at 05:14; Status DC Insulin Human Regular (NovoLIN R INJ) See Protocol Table ... [place] PRN SQ SEE PROTOCOL TABLE; Start 05/28/17 at 05:15; Stop 05/31/17 at 05:14; Status DC Thrombin (Thrombin Top Soln) 10,000 units STK-MED ONCE .ROUTE ; Start 05/28/17 at 07:05; Stop 05/28/17 at 07:06; Status DC Epinephrine HCl (Adrenalin (1:1000) Inj) 1 mg STK-MED ONCE .ROUTE ; Start at 07:05; Stop 05/28/17 at 07:06; Status DC Oxymetazoline HCl (Afrin 0.05% [place]) 15 spray STK-MED ONCE .ROUTE Last administered on 05/28/17 07:46; Start 05/28/17 at 07:06; Stop 05/28/17 at 07:07; Status DC Bacitracin (Baciguent Oint) 15 applic STK-MED ONCE .ROUTE ; Start 05/28/17 at 07: 06; Stop 05/28/17 at 07:07; Status DC Lidocaine/ Epinephrine (Xylocaine-Epi 1%-1:100,000 Inj) 60 ml STK-MED ONCE .ROUTE Last administered on 05/28/17 07:46; Start 05/28/17 at 07:06; Stop at 07:07; Status DC Lidocaine/ Epinephrine (Xylocaine-Epi 1%-1:100,000 Inj) 20 ml STK-MED ONCE .ROUTE ; Start 05/28/17 at 07:07; Stop 05/28/17 at 07:08; Status DC Aprepitant (Emend) 40 mg STK-MED ONCE .ROUTE Last administered on 05/28/17 07: 14; Start 05/28/17 at 07:13; Stop 05/28/17 at 07:14; Status DC Midazolam HCl (Versed Inj) 2 mg STK-MED ONCE .ROUTE ; Start 05/28/17 at 07:17; Stop 05/28/17 at 07:18; Status DC Dexamethasone Sodium Phosphate (Decadron Inj) 8 mg STK-MED ONCE .ROUTE ; Start 05/28/17 at 07:17; Stop 05/28/17 at 07:18; Status DC Famotidine (Pepcid Inj) 20 mg STK-MED ONCE .ROUTE ; Start 05/28/17 at 07:17; Stop 05/28/17 at 07:18; Status DC Acetaminophen (Ofirmev Inj) 1,000 mg STK-MED ONCE IV ; Start 05/28/17 at 07:30; Stop 05/28/17 at 07:31; Status DC Oxymetazoline HCl (Afrin 0.05% [place]) 30 spray STK-MED ONCE .ROUTE ; Start 05/28/17 at 08:16; Stop 05/28/17 at 08:17; Status DC Morphine Sulfate (*morphine INJ PERIprocedure ONLY) 8 mg STK-MED ONCE .ROUTE Last administered on 05/28/17 09:21; Start 05/28/17 at 09:21; Stop 05/28/17 at 09: 22; Status DC Ondansetron HCl 4 mg 4 mg Q6H PRN IV PUSH NAUSEA OR VOMITING Last administered on 06/04/17 06:53; Start 05/28/17 at 09:45; Stop 06/04/17 at 12:52; Status DC Lactated Ringer's (Lr 1000 ml Inj) 1,000 ml @ 60 mls/hr [id number] IV Last administered on 06/02/17 23:43; Start 05/28/17 at 10:00; Stop 06/03/17 at 18:08; Status DC Acetaminophen/ Hydrocodone Bitart 1 tab 1 tab Q6H PRN PO PAIN SCALE 1 TO 5 Last administered on 06/03/17 12:55; Start 05/28/17 at 09:45; Stop 06/04/17 at 12:52; Status DC Clindamycin Phosphate/Sodium Chloride (Cleocin Inj/NS Inj) 104 ml @ 208 mls/hr Q8H IV Last administered on 06/03/17 15:17; Start 05/28/17 at 15:00; Stop 06/03 at 18:09; Status DC Miscellaneous Information ALL NURSING DEPARTME... UNSCH PRN .XX SEE LABEL COMMENTS; Start 05/28/17 at 09:15; Stop 05/29/17 at 09:14; Status DC Fentanyl Citrate (fentaNYL INJ) 100 mcg STK-MED ONCE .ROUTE ; Start 05/28/17 at 09:54; Stop 05/28/17 at 09:55; Status DC Morphine Sulfate (Morphine Inj) 4 mg STK-MED ONCE .ROUTE ; Start 05/28/17 at 09: 54; Stop 05/28/17 at 09:55; Status DC Promethazine HCl (*PHENERGAN INJ PERIprocedural ONLY) 25 mg STK-MED ONCE .ROUTE ; Start 05/28/17 at 10:51; Stop 05/28/17 at 10:52; Status DC Midazolam HCl (Versed Inj) 2 mg STK-MED ONCE .ROUTE Last administered on 12:36; Start 05/28/17 at 12:36; Stop 05/28/17 at 12:37; Status DC Midazolam HCl (Versed Inj) 2 mg STK-MED ONCE .ROUTE Last administered on 12:36; Start 05/28/17 at 12:36; Stop 05/28/17 at 12:37; Status DC Fentanyl Citrate 250 mcg 250 mcg STK-MED ONCE .ROUTE Last administered on 12:37; Start 05/28/17 at 12:37; Stop 05/28/17 at 12:38; Status DC Cefazolin Sodium/ Dextrose (Ancef 2 Gm Premix) 50 ml @ As Directed STK-MED ONCE .ROUTE Last administered on 05/28/17 12:37; Start 05/28/17 at 12:37; Stop at 12:38; Status DC Acetaminophen/ Hydrocodone Bitart ([place] 5-325 Mg) 2 tab Q6H PRN PO PAIN SCALE 6 TO 10 Last administered on 06/04/17 06:53; Start 05/28/17 at 18:00; Stop 06/04/17 at 12:52; Status DC Morphine Sulfate (Morphine Inj) 2 mg Q2H PRN IV PAIN 1-10; Start 05/29/17 at 16: 15; Stop 06/04/17 at 12:52; Status DC Sodium Biphosphate/ Sodium Phosphate (Fleets Enema (Adult)) 133 ml ONCE ONCE RECTAL Last administered on 06/04/17 09:07; Start 06/04/17 at 09:00; Stop 09/10 at 09:01; Status DC Fluconazole (Diflucan) 200 mg ONCE ONCE PO Last administered on 06/03/17 20: 57; Start 06/03/17 at 18:15; Stop 06/03/17 at 18:16; Status DC Fluconazole (Diflucan) 100 mg DAILY PO Last administered on 06/04/17 09:07; Start 06/04/17 at 09:00; Stop 06/04/17 at 12:52; Status DC Medical Decision Making MDM Remarks Last Impressions Sinuses CT 06/02/17 1530 Signed Impressions: Service Date/Time: Friday, June 02, 2017 15:45 - CONCLUSION: 1. Pansinusitis with a possible acute component in the frontals. 2. Prior sinus surgery with bilateral turbinectomies. 3. No obvious contrast in the paranasal sinuses to suggest a large CSF leak. Thom Colvin MD CSF Scan Nuclear Medicine 06/02/17 0000 Signed Impressions: Service Date/Time: Friday, June 02, 2017 11:25 - CONCLUSION: 1. Scintigraphic images show no obvious CSF leak. 2. However, pledget weights and activities would suggest a small CSF leak in the right posterior/superior location. Thom Colvin MD Lumbar Puncture Fluoroscopy 05/28/17 0000 Signed Impressions: Service Date/Time: Sunday, May 28, 2017 12:31 - CONCLUSION: Uncomplicated lumbar drain placement as above. Jed Francis MD Plan Plan Remarks Continue neuro checks. Status post by placement of a lumbar drain. drain. Plan to obtain a CT cisternogram. and nuclear medicine cisternogram tomorrow If this cerebrospinal fluid leak get worse and persistent over time, a craniotomy could be necessary for repair of the leak Pulmonary. Continue aggressive pulmonary toilette, nasotracheal suction, and breathing treatments with nebulizers. Daily PT and OT Nutrition. Oral diet Renal. Continue to monitor closely urine output, BUN and creatinine Endocrine. Continue Monitor serial Acu checks and SSI as needed Continue to monitor for signs of infection Continue Protonix for stress ulcer prophylaxis Continue Jadon min and SCD's for DVT prophylaxis Discussed with Dr Oni Bach,Ousmane Avila MD May 30, 2017 22:07
--- NOTE | 2017-05-30 22:07 | HHI.NSPN ---
Note Status Status: Progress Note Interval History Diagnosis CSf leak Interval History THIS NOTE REFLECTS MY ENCOUNTER WITH MS HORTA ON 05/29/17 DUEING ROUNDS This is a 27-year-old female brought to [facility] for an elective intranasal procedure. She develop a cerebral spinal fluid leak which was explored by . No evidence of infection. No evidence of meningitis. Neurosurgical consultation was requested 05/29,. Status post lumbar drain placement. Midly unconfortable. No CSF leak Labs, Micro, & Vital Signs Results THIS NOTE REFLECTS MY ENCOUNTER WITH MS HORTA ON 05/29/17 DUEING ROUNDS Date Time Temp Pulse Resp B/P Pulse Ox O2 Delivery O2 Flow Rate FiO2 05/30/17 19:57 98.0 86 18 109/56 94 05/30/17 16:51 98.4 88 20 126/60 98 05/30/17 11:51 98.1 82 20 112/58 96 05/30/17 05:45 97.7 89 20 104/60 96 05/30/17 00:00 97.8 81 20 107/56 100 05/30/17 07:00 Intake Total 1892 ml Output Total 120 ml Balance 1772 ml Constitutional THIS NOTE REFLECTS MY ENCOUNTER WITH MS HORTA ON 05/29/17 DUEING ROUNDS Vital Signs Date Time Temp Pulse Resp B/P Pulse Ox O2 Delivery O2 Flow Rate FiO2 05/30/17 19:57 98.0 86 18 109/56 94 05/30/17 16:51 98.4 88 20 126/60 98 05/30/17 11:51 98.1 82 20 112/58 96 05/30/17 05:45 97.7 89 20 104/60 96 05/30/17 00:00 97.8 81 20 107/56 100 05/30/17 07:00 Intake Total 1892 ml Output Total 120 ml Balance 1772 ml Review of Systems/Exam ROS Exam THIS NOTE REFLECTS MY ENCOUNTER WITH MS HORTA ON 05/29/17 DUEING ROUNDS The patient is alert, awake and oriented to time, place and person. Speech is fluent. Higher cognitive functions are normal. No CSF leak. Cranial nerve examination demonstrates the pupils to be equal, round, and reactive to light. Extra-ocular movements are intact. Facial motor and sensory function are normal and symmetrical. Gross hearing is intact, bilaterally. The uvula is midline and elevates symmetrically with the soft palate. Sternocleidomastoid and trapezius muscles have normal and symmetrical strength. Other cranial nerves are intact. Neck is soft and supple. Cervical spine has a full range of motion in anterior flexion, extension, lateral bending, and rotation without pain. There is no tenderness to palpation to the spinous processes or paraspinal muscles. Muscle testing reveals normal bulk and tone overall without rigidity, spasticity , fasciculations, or atrophy. Muscle strength is 5/5 in all muscle groups of both upper extremities including deltoid, biceps, triceps, brachioradialis, wrist extension and wallcovering hanger. In the lower extremities, strength is 5/5 in both iliopsoas, quadriceps, hamstrings, plantar flexion, dorsiflexion, and extensor hallicus longus. Sensory examination is intact to light touch and sharp/dull discrimination in both the upper and lower extremities, symmetrically. Deep tendon reflexes are 2+ and symmetrical in the biceps, triceps, and brachioradialis, bilaterally, in the upper extremities. In the lower extremities , the patellar and Achilles are 2+, bilaterally. There is a bilateral plantar flexion response. Hoffmanns sign is negative. There is no clonus or other abnormal reflexes noted. Cerebellar examination is intact to [id number] test, rapid rhythmic alternating motion. There is no dysmetria, dysdiadochokinesia, truncal ataxia, or tremor. Medications Current Medications THIS NOTE REFLECTS MY ENCOUNTER WITH MS HORTA ON 05/29/17 DUEING ROUNDS Current Medications Lactated Ringer's 1,000 ml @ 30 mls/hr Q24H PRN IV SEE LABEL COMMENTS Last administered on 05/27/17t 15:15; Start 05/27/17 at 15:45; Stop 05/27/17 at 19:41; Status DC Sodium Chloride (NS 500 ml Inj) 500 ml @ 30 mls/hr [id number] PRN IV SEE LABEL COMMENTS; Start 05/27/17 at 15:45; Stop 05/27/17 at 19:41; Status DC Metoprolol Tartrate (Lopressor) 25 mg [employer] PRN PO SEE LABEL COMMENTS; Start 05/27/17 at 15:45; Stop 05/30/17 at 15:44; Status DC Povidone Iodine (Betadine 5% Antisepsis Kit) 1 applic [employer]ANT PRN EACH NARE SEE LABEL COMMENTS; Start 05/27/17 at 15:45; Stop 05/30/17 at 15:44; Status DC Chlorhexidine Gluconate (Chlorhexidine 2% Cloth) 3 pack [employer]ANT PRN TOPICAL SEE LABEL COMMENTS; Start 05/27/17 at 15:45; Stop 05/28/17 at 05:02; Status DC Insulin Human Regular See Protocol Table ... [employer] CONSULTANT PRN SQ SEE PROTOCOL TABLE ; Start 05/27/17 at 15:45; Stop 05/28/17 at 05:02; Status DC Clindamycin Phosphate/Sodium Chloride (Cleocin Inj/NS Inj) 104 ml @ 208 mls/hr [employer] CONSULTANT IV ; Start 05/27/17 at 15:45; Stop 05/28/17 at 15:44; Status DC Clindamycin Phosphate 600 mg 600 mg STK-MED ONCE .ROUTE ; Start 05/27/17 at 15:44 ; Stop 05/27/17 at 15:45; Status DC Sodium Chloride 100 ml @ As Directed STK-MED ONCE .ROUTE ; Start 05/27/17 at 15: 45; Stop 05/27/17 at 15:46; Status DC Lactated Ringer's (Lr 1000 ml Inj) 1,000 ml @ 60 mls/hr [id number] IV Last administered on 06/01/17 15:35; Start 05/27/17 at 20:00; Stop 06/03/17 at 18:08; Status DC Acetaminophen/ Hydrocodone Bitart ([place] 5-325 Mg) 1 tab Q6H PRN PO PAIN SCALE 1 TO 5; Start 05/27/17 at 19:45; Stop 05/28/17 at 09:43; Status DC Acetaminophen/ Hydrocodone Bitart ([place] 5-325 Mg) 2 tab Q6H PRN PO PAIN SCALE 6 TO 10 Last administered on 05/28/17 02:17; Start 05/27/17 at 19:45; Stop 05/28/17 at 09:43; Status DC Alprazolam (Xanax) 0.25 mg Q8H PRN PO ANXIETY Last administered on 05/29/17 20: 35; Start 05/27/17 at 19:45; Stop 06/04/17 at 12:52; Status DC Docusate Calcium (Surfak) 240 mg DAILY PO Last administered on 06/04/17 09:07 ; Start 05/28/17 at 09:00; Stop 06/04/17 at 12:52; Status DC Acetazolamide 500 mg 500 mg BID PO Last administered on 06/04/17 09:06; Start 05/27/17 at 21:00; Stop 06/04/17 at 12:52; Status DC Lactated Ringer's (Lr 1000 ml Inj) 1,000 ml @ 30 mls/hr Q24H PRN IV SEE LABEL COMMENTS; Start 05/28/17 at 05:15; Stop 05/31/17 at 05:14; Status DC Chlorhexidine Gluconate (Chlorhexidine 2% Cloth) 3 pack [employer]SULTANT PRN TOPICAL SEE LABEL COMMENTS; Start 05/28/17 at 05:15; Stop 05/31/17 at 05:14; Status DC Insulin Human Regular (NovoLIN R INJ) See Protocol Table ... [employer] CONSULTANT PRN SQ SEE PROTOCOL TABLE; Start 05/28/17 at 05:15; Stop 05/31/17 at 05:14; Status DC Thrombin (Thrombin Top Soln) 10,000 units STK-MED ONCE .ROUTE ; Start 05/28/17 at 07:05; Stop 05/28/17 at 07:06; Status DC Epinephrine HCl (Adrenalin (1:1000) Inj) 1 mg STK-MED ONCE .ROUTE ; Start at 07:05; Stop 05/28/17 at 07:06; Status DC Oxymetazoline HCl (Afrin 0.05% [place]) 15 spray STK-MED ONCE .ROUTE Last administered on 05/28/17 07:46; Start 05/28/17 at 07:06; Stop 05/28/17 at 07:07; Status DC Bacitracin (Baciguent Oint) 15 applic STK-MED ONCE .ROUTE ; Start 05/28/17 at 07: 06; Stop 05/28/17 at 07:07; Status DC Lidocaine/ Epinephrine (Xylocaine-Epi 1%-1:100,000 Inj) 60 ml STK-MED ONCE .ROUTE Last administered on 05/28/17 07:46; Start 05/28/17 at 07:06; Stop at 07:07; Status DC Lidocaine/ Epinephrine (Xylocaine-Epi 1%-1:100,000 Inj) 20 ml STK-MED ONCE .ROUTE ; Start 05/28/17 at 07:07; Stop 05/28/17 at 07:08; Status DC Aprepitant (Emend) 40 mg STK-MED ONCE .ROUTE Last administered on 05/28/17 07: 14; Start 05/28/17 at 07:13; Stop 05/28/17 at 07:14; Status DC Midazolam HCl (Versed Inj) 2 mg STK-MED ONCE .ROUTE ; Start 05/28/17 at 07:17; Stop 05/28/17 at 07:18; Status DC Dexamethasone Sodium Phosphate (Decadron Inj) 8 mg STK-MED ONCE .ROUTE ; Start 05/28/17 at 07:17; Stop 05/28/17 at 07:18; Status DC Famotidine (Pepcid Inj) 20 mg STK-MED ONCE .ROUTE ; Start 05/28/17 at 07:17; Stop 05/28/17 at 07:18; Status DC Acetaminophen (Ofirmev Inj) 1,000 mg STK-MED ONCE IV ; Start 05/28/17 at 07:30; Stop 05/28/17 at 07:31; Status DC Oxymetazoline HCl (Afrin 0.05% [place]) 30 spray STK-MED ONCE .ROUTE ; Start 05/28/17 at 08:16; Stop 05/28/17 at 08:17; Status DC Morphine Sulfate (*morphine INJ PERIprocedure ONLY) 8 mg STK-MED ONCE .ROUTE Last administered on 05/28/17 09:21; Start 05/28/17 at 09:21; Stop 05/28/17 at 09: 22; Status DC Ondansetron HCl 4 mg 4 mg Q6H PRN IV PUSH NAUSEA OR VOMITING Last administered on 06/04/17 06:53; Start 05/28/17 at 09:45; Stop 06/04/17 at 12:52; Status DC Lactated Ringer's (Lr 1000 ml Inj) 1,000 ml @ 60 mls/hr [id number] IV Last administered on 06/02/17 23:43; Start 05/28/17 at 10:00; Stop 06/03/17 at 18:08; Status DC Acetaminophen/ Hydrocodone Bitart 1 tab 1 tab Q6H PRN PO PAIN SCALE 1 TO 5 Last administered on 06/03/17 12:55; Start 05/28/17 at 09:45; Stop 06/04/17 at 12:52; Status DC Clindamycin Phosphate/Sodium Chloride (Cleocin Inj/NS Inj) 104 ml @ 208 mls/hr Q8H IV Last administered on 06/03/17 15:17; Start 05/28/17 at 15:00; Stop 06/03 at 18:09; Status DC Miscellaneous Information ALL NURSING DEPARTME... UNSCH PRN .XX SEE LABEL COMMENTS; Start 05/28/17 at 09:15; Stop 05/29/17 at 09:14; Status DC Fentanyl Citrate (fentaNYL INJ) 100 mcg STK-MED ONCE .ROUTE ; Start 05/28/17 at 09:54; Stop 05/28/17 at 09:55; Status DC Morphine Sulfate (Morphine Inj) 4 mg STK-MED ONCE .ROUTE ; Start 05/28/17 at 09: 54; Stop 05/28/17 at 09:55; Status DC Promethazine HCl (*PHENERGAN INJ PERIprocedural ONLY) 25 mg STK-MED ONCE .ROUTE ; Start 05/28/17 at 10:51; Stop 05/28/17 at 10:52; Status DC Midazolam HCl (Versed Inj) 2 mg STK-MED ONCE .ROUTE Last administered on 12:36; Start 05/28/17 at 12:36; Stop 05/28/17 at 12:37; Status DC Midazolam HCl (Versed Inj) 2 mg STK-MED ONCE .ROUTE Last administered on 12:36; Start 05/28/17 at 12:36; Stop 05/28/17 at 12:37; Status DC Fentanyl Citrate 250 mcg 250 mcg STK-MED ONCE .ROUTE Last administered on 12:37; Start 05/28/17 at 12:37; Stop 05/28/17 at 12:38; Status DC Cefazolin Sodium/ Dextrose (Ancef 2 Gm Premix) 50 ml @ As Directed STK-MED ONCE .ROUTE Last administered on 05/28/17 12:37; Start 05/28/17 at 12:37; Stop at 12:38; Status DC Acetaminophen/ Hydrocodone Bitart ([place] 5-325 Mg) 2 tab Q6H PRN PO PAIN SCALE 6 TO 10 Last administered on 06/04/17 06:53; Start 05/28/17 at 18:00; Stop 06/04/17 at 12:52; Status DC Morphine Sulfate (Morphine Inj) 2 mg Q2H PRN IV PAIN 1-10; Start 05/29/17 at 16: 15; Stop 06/04/17 at 12:52; Status DC Sodium Biphosphate/ Sodium Phosphate (Fleets Enema (Adult)) 133 ml ONCE ONCE RECTAL Last administered on 06/04/17 09:07; Start 06/04/17 at 09:00; Stop 09/10 at 09:01; Status DC Fluconazole (Diflucan) 200 mg ONCE ONCE PO Last administered on 06/03/17 20: 57; Start 06/03/17 at 18:15; Stop 06/03/17 at 18:16; Status DC Fluconazole (Diflucan) 100 mg DAILY PO Last administered on 06/04/17 09:07; Start 06/04/17 at 09:00; Stop 06/04/17 at 12:52; Status DC Medical Decision Making MDM Remarks THIS NOTE REFLECTS MY ENCOUNTER WITH MS HORTA ON 05/29/17 DUEING ROUNDS Last Impressions Sinuses CT 06/02/17 1530 Signed Impressions: Service Date/Time: Friday, June 02, 2017 15:45 - CONCLUSION: 1. Pansinusitis with a possible acute component in the frontals. 2. Prior sinus surgery with bilateral turbinectomies. 3. No obvious contrast in the paranasal sinuses to suggest a large CSF leak. Thom Colvin MD CSF Scan Nuclear Medicine 06/02/17 0000 Signed Impressions: Service Date/Time: Friday, June 02, 2017 11:25 - CONCLUSION: 1. Scintigraphic images show no obvious CSF leak. 2. However, pledget weights and activities would suggest a small CSF leak in the right posterior/superior location. Thom Colvin MD Lumbar Puncture Fluoroscopy 05/28/17 0000 Signed Impressions: Service Date/Time: Sunday, May 28, 2017 12:31 - CONCLUSION: Uncomplicated lumbar drain placement as above. Jed Francis MD Plan Plan Remarks THIS NOTE REFLECTS MY ENCOUNTER WITH MS HORTA ON 05/29/17 DUEING ROUNDS Attending Statement THIS NOTE REFLECTS MY ENCOUNTER WITH MS HORTA ON 05/29/17 DUEING ROUNDS Continue neuro checks. Status post by placement of a lumbar drain. drain. If persistent CSF leak, she may benefit by injecting contrast media into the subarachnoid space and obtain a CT cisternogram. and nuclear medicine cisternogram on Wednesday If this cerebrospinal fluid leak get worse and persistent over time, a craniotomy could be necessary for repair of the leak Pulmonary. Continue aggressive pulmonary toilette, nasotracheal suction, and breathing treatments with nebulizers. Daily PT and OT Nutrition. Oral diet Renal. Continue to monitor closely urine output, BUN and creatinine Endocrine. Continue Monitor serial Acu checks and SSI as needed Continue to monitor for signs of infection Continue Protonix for stress ulcer prophylaxis Continue Jadon copeland and SCD's for DVT prophylaxis Ousmane Bach MD May 30, 2017 22:07
[2017-05-31 00:24] VITALS: BP 109/61; PULSE 76; RESP 20; TEMP 97.8; O2SAT 98
[2017-05-31] MEDS: LACTATED RINGER'S 1000 ML INJ 1,000 ML IV SCH ×3 (03:31→21:20)
[2017-05-31] MEDS: ACETAMINOPHEN/HYDROcodone 325 MG/5 MG TAB PO PRN ×3 (03:37→15:17)
[2017-05-31] MEDS: ONDANSETRON HCL 4 MG/2 ML VIAL IV PUSH PRN ×4 (03:37→21:06)
[2017-05-31 04:31] VITALS: BP 104/58; PULSE 72; RESP 18; TEMP 97.5; O2SAT 98
[2017-05-31] MEDS: CLINDAMYCIN 600 MG/NS 100 ML IV SCH ×4 (05:38→15:13)
[2017-05-31 07:52] VITALS: BP 108/68; PULSE 72; RESP 18; TEMP 98.1; O2SAT 97
[2017-05-31] MEDS: DOCUSATE CALCIUM 240 MG CAP PO SCH (07:56)
[2017-05-31] MEDS: acetaZOLAMIDE SEQUELS 500 MG SUSTAINED RELEASE CAP PO SCH ×2 (07:56→20:54)
[2017-05-31 12:05] VITALS: BP 96/57; PULSE 77; RESP 18; TEMP 98; O2SAT 99
[2017-05-31 16:28] VITALS: BP 102/52; PULSE 87; RESP 18; TEMP 98.9; O2SAT 98
[2017-05-31 20:00] VITALS: BP 102/62; PULSE 80; RESP 18; TEMP 98; O2SAT 97
--- NOTE | 2017-05-31 20:00 | RADRPT ---
EXAM DATE/TIME: 05/31/2017 19:34 [facility] COMPARISON: No previous studies available for comparison. INDICATIONS : Facial pain, history of deviated septum. RADIATION DOSE: 13.33 CTDIvol (mGy) MEDICAL HISTORY : deviated septum, chronic migraines SURGICAL HISTORY : repaired deviated septum ENCOUNTER: Subsequent ACUITY: 3 days PAIN SCORE: 4/10 LOCATION: facial TECHNIQUE: Volumetric scanning of the paranasal sinuses was performed. Using automated exposure control and adj ustment of the mA and/or kV according to patient size, radiation dose was kept as low as reasonably a chievable to obtain optimal diagnostic quality images. DICOM format image data is available electro nically for review and comparison. FINDINGS: There are air-fluid levels in both maxillary sinuses. There is also near-complete opacification of et hmoid air cells and mucosal thickening in the sphenoid sinus and frontal sinuses inferiorly. Portions of the nasal septum and turbinates are absent from previous surgery. CONCLUSION: 1. Acute sinusitis of the maxillary and ethmoid sinuses. Previous sinus surgery. Albino Vieyra MD on May 31, 2017 at 19:55 Board Certified Radiologist. This report was verified electronically.
[2017-06-01] VITALS: BP 119/58; PULSE 76; RESP 20; TEMP 98.5; O2SAT 98
[2017-06-01] MEDS: CLINDAMYCIN 600 MG/NS 100 ML IV SCH ×8 (00:50→21:56)
[2017-06-01] MEDS: LACTATED RINGER'S 1000 ML INJ 1,000 ML IV SCH ×3 (03:34→15:35)
[2017-06-01] MEDS: ACETAMINOPHEN/HYDROcodone 325 MG/5 MG TAB PO PRN ×4 (03:38→21:42)
[2017-06-01] MEDS: ONDANSETRON HCL 4 MG/2 ML VIAL IV PUSH PRN ×4 (03:38→21:43)
[2017-06-01 04:00] VITALS: BP 129/64; PULSE 87; RESP 20; TEMP 98.2; O2SAT 98
[2017-06-01 08:00] VITALS: BP 117/68; PULSE 77; RESP 16; TEMP 98.3; O2SAT 97
[2017-06-01] MEDS: acetaZOLAMIDE SEQUELS 500 MG SUSTAINED RELEASE CAP PO SCH ×2 (08:14→21:41)
[2017-06-01] MEDS: DOCUSATE CALCIUM 240 MG CAP PO SCH (08:14)
[2017-06-01 12:00] VITALS: BP 123/72; PULSE 84; RESP 16; TEMP 98.2; O2SAT 96
[2017-06-01 16:00] VITALS: BP_SYST 122; BP_SYST 89; BP_DIAS 55; BP_DIAS 67; PULSE 64; PULSE 88; RESP 16; TEMP 98.1; TEMP 98.4; O2SAT 100; O2SAT 96
--- NOTE | 2017-06-01 16:49 | HHI.NSPN ---
Note Status Status: Progress Note Interval History Diagnosis CSF leak Interval History This is a 27-year-old female brought to [place] by for an elective intranasal procedure. She develop a cerebral spinal fluid leak which was explored by . No evidence of infection. No evidence of meningitis. Neurosurgical consultation was requested 05/29,. Status post lumbar drain placement. Midly unconfortable. No CSF leak 05/30. She reports severe headaches after shw got up. Denies CSF leak. Lumbar drain worsking well 06/01. Reports spinal headaches.Denies rhinorrhea Labs, Micro, & Vital Signs Results Date Time Temp Pulse Resp B/P Pulse Ox O2 Delivery O2 Flow Rate FiO2 06/01/17 16:00 98.1 88 16 122/67 100 06/01/17 12:00 98.2 84 16 123/72 96 06/01/17 08:00 98.3 77 16 117/68 97 06/01/17 04:00 98.2 87 20 129/64 98 06/01/17 00:00 98.5 76 20 119/58 98 05/31/17 20:00 98.0 80 18 102/62 97 06/01/17 06:59 Intake Total 1120 ml Balance 1120 ml Constitutional Vital Signs Date Time Temp Pulse Resp B/P Pulse Ox O2 Delivery O2 Flow Rate FiO2 06/01/17 16:00 98.1 88 16 122/67 100 06/01/17 12:00 98.2 84 16 123/72 96 06/01/17 08:00 98.3 77 16 117/68 97 06/01/17 04:00 98.2 87 20 129/64 98 06/01/17 00:00 98.5 76 20 119/58 98 05/31/17 20:00 98.0 80 18 102/62 97 06/01/17 06:59 Intake Total 1120 ml Balance 1120 ml Review of Systems/Exam Exam The patient is alert, awake and oriented to time, place and person. Speech is fluent. No clinical evidence of rhinorrhea Cranial nerve examination demonstrates the pupils to be equal, round, and reactive to light. Extra-ocular movements are intact. Facial motor and sensory function are normal and symmetrical. Gross hearing is intact, bilaterally. The uvula is midline and elevates symmetrically with the soft palate. Sternocleidomastoid and trapezius muscles have normal and symmetrical strength. Other cranial nerves are intact. Neck is soft and supple. Cervical spine has a full range of motion in anterior flexion, extension, lateral bending, and rotation without pain. There is no tenderness to palpation to the spinous processes or paraspinal muscles. Muscle testing reveals normal bulk and tone overall without rigidity, spasticity , fasciculations, or atrophy. 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 In the lower extremities, strength is 5/5 in both iliopsoas, quadriceps, hamstrings, plantar flexion, dorsiflexion, and extensor hallicus longus. Sensory examination is intact to light touch and sharp/dull discrimination in both the upper and lower extremities, symmetrically. Deep tendon reflexes are 2+ and symmetrical in the biceps, triceps, and brachioradialis, bilaterally, in the upper extremities. In the lower extremities , the patellar and Achilles are 2+, bilaterally. There is a bilateral plantar flexion response. Hoffmanns sign is negative. There is no clonus or other abnormal reflexes noted. Cerebellar examination is intact to [id number] test, rapid rhythmic alternating motion. There is no dysmetria, dysdiadochokinesia, truncal ataxia, or tremor. Medications Current Medications Current Medications Lactated Ringer's 1,000 ml @ 30 mls/hr Q24H PRN IV SEE LABEL COMMENTS Last administered on 05/27/17t 15:15; Start 05/27/17 at 15:45; Stop 05/27/17 at 19:41; Status DC Sodium Chloride (NS 500 ml Inj) 500 ml @ 30 mls/hr [id number] PRN IV SEE LABEL COMMENTS; Start 05/27/17 at 15:45; Stop 05/27/17 at 19:41; Status DC Metoprolol Tartrate (Lopressor) 25 mg SPEAR FISHER PRN PO SEE LABEL COMMENTS; Start 05/27/17 at 15:45; Stop 05/30/17 at 15:44; Status DC Povidone Iodine (Betadine 5% Antisepsis Kit) 1 applic SPEAR FISHER PRN EACH NARE SEE LABEL COMMENTS; Start 05/27/17 at 15:45; Stop 05/30/17 at 15:44; Status DC Chlorhexidine Gluconate (Chlorhexidine 2% Cloth) 3 pack SPEAR FISHER PRN TOPICAL SEE LABEL COMMENTS; Start 05/27/17 at 15:45; Stop 05/28/17 at 05:02; Status DC Insulin Human Regular See Protocol Table ... SPEAR FISHER PRN SQ SEE PROTOCOL TABLE ; Start 05/27/17 at 15:45; Stop 05/28/17 at 05:02; Status DC Clindamycin Phosphate/Sodium Chloride (Cleocin Inj/NS Inj) 104 ml @ 208 mls/hr SPEAR FISHER IV ; Start 05/27/17 at 15:45; Stop 05/28/17 at 15:44; Status DC Clindamycin Phosphate 600 mg 600 mg STK-MED ONCE .ROUTE ; Start 05/27/17 at 15:44 ; Stop 05/27/17 at 15:45; Status DC Sodium Chloride 100 ml @ As Directed STK-MED ONCE .ROUTE ; Start 05/27/17 at 15: 45; Stop 05/27/17 at 15:46; Status DC Lactated Ringer's (Lr 1000 ml Inj) 1,000 ml @ 60 mls/hr [id number] IV Last administered on 06/01/17 15:35; Start 05/27/17 at 20:00; Stop 06/03/17 at 18:08; Status DC Acetaminophen/ Hydrocodone Bitart (Watkins 5-325 Mg) 1 tab Q6H PRN PO PAIN SCALE 1 TO 5; Start 05/27/17 at 19:45; Stop 05/28/17 at 09:43; Status DC Acetaminophen/ Hydrocodone Bitart (Watkins 5-325 Mg) 2 tab Q6H PRN PO PAIN SCALE 6 TO 10 Last administered on 05/28/17 02:17; Start 05/27/17 at 19:45; Stop 05/28/17 at 09:43; Status DC Alprazolam (Xanax) 0.25 mg Q8H PRN PO ANXIETY Last administered on 05/29/17 20: 35; Start 05/27/17 at 19:45; Stop 06/04/17 at 12:52; Status DC Docusate Calcium (Surfak) 240 mg DAILY PO Last administered on 06/04/17 09:07 ; Start 05/28/17 at 09:00; Stop 06/04/17 at 12:52; Status DC Acetazolamide 500 mg 500 mg BID PO Last administered on 06/04/17 09:06; Start 05/27/17 at 21:00; Stop 06/04/17 at 12:52; Status DC Lactated Ringer's (Lr 1000 ml Inj) 1,000 ml @ 30 mls/hr Q24H PRN IV SEE LABEL COMMENTS; Start 05/28/17 at 05:15; Stop 05/31/17 at 05:14; Status DC Chlorhexidine Gluconate (Chlorhexidine 2% Cloth) 3 pack SPEAR FISHER PRN TOPICAL SEE LABEL COMMENTS; Start 05/28/17 at 05:15; Stop 05/31/17 at 05:14; Status DC Insulin Human Regular (NovoLIN R INJ) See Protocol Table ... SPEAR FISHER PRN SQ SEE PROTOCOL TABLE; Start 05/28/17 at 05:15; Stop 05/31/17 at 05:14; Status DC Thrombin (Thrombin Top Soln) 10,000 units STK-MED ONCE .ROUTE ; Start 05/28/17 at 07:05; Stop 05/28/17 at 07:06; Status DC Epinephrine HCl (Adrenalin (1:1000) Inj) 1 mg STK-MED ONCE .ROUTE ; Start at 07:05; Stop 05/28/17 at 07:06; Status DC Oxymetazoline HCl (Afrin 0.05% [place]) 15 spray STK-MED ONCE .ROUTE Last administered on 05/28/17 07:46; Start 05/28/17 at 07:06; Stop 05/28/17 at 07:07; Status DC Bacitracin (Baciguent Oint) 15 applic STK-MED ONCE .ROUTE ; Start 05/28/17 at 07: 06; Stop 05/28/17 at 07:07; Status DC Lidocaine/ Epinephrine (Xylocaine-Epi 1%-1:100,000 Inj) 60 ml STK-MED ONCE .ROUTE Last administered on 05/28/17 07:46; Start 05/28/17 at 07:06; Stop at 07:07; Status DC Lidocaine/ Epinephrine (Xylocaine-Epi 1%-1:100,000 Inj) 20 ml STK-MED ONCE .ROUTE ; Start 05/28/17 at 07:07; Stop 05/28/17 at 07:08; Status DC Aprepitant (Emend) 40 mg STK-MED ONCE .ROUTE Last administered on 05/28/17 07: 14; Start 05/28/17 at 07:13; Stop 05/28/17 at 07:14; Status DC Midazolam HCl (Versed Inj) 2 mg STK-MED ONCE .ROUTE ; Start 05/28/17 at 07:17; Stop 05/28/17 at 07:18; Status DC Dexamethasone Sodium Phosphate (Decadron Inj) 8 mg STK-MED ONCE .ROUTE ; Start 05/28/17 at 07:17; Stop 05/28/17 at 07:18; Status DC Famotidine (Pepcid Inj) 20 mg STK-MED ONCE .ROUTE ; Start 05/28/17 at 07:17; Stop 05/28/17 at 07:18; Status DC Acetaminophen (Ofirmev Inj) 1,000 mg STK-MED ONCE IV ; Start 05/28/17 at 07:30; Stop 05/28/17 at 07:31; Status DC Oxymetazoline HCl (Afrin 0.05% [place]) 30 spray STK-MED ONCE .ROUTE ; Start 05/28/17 at 08:16; Stop 05/28/17 at 08:17; Status DC Morphine Sulfate (*morphine INJ PERIprocedure ONLY) 8 mg STK-MED ONCE .ROUTE Last administered on 05/28/17 09:21; Start 05/28/17 at 09:21; Stop 05/28/17 at 09: 22; Status DC Ondansetron HCl 4 mg 4 mg Q6H PRN IV PUSH NAUSEA OR VOMITING Last administered on 06/04/17 06:53; Start 05/28/17 at 09:45; Stop 06/04/17 at 12:52; Status DC Lactated Ringer's (Lr 1000 ml Inj) 1,000 ml @ 60 mls/hr [id number] IV Last administered on 06/02/17 23:43; Start 05/28/17 at 10:00; Stop 06/03/17 at 18:08; Status DC Acetaminophen/ Hydrocodone Bitart 1 tab 1 tab Q6H PRN PO PAIN SCALE 1 TO 5 Last administered on 06/03/17 12:55; Start 05/28/17 at 09:45; Stop 06/04/17 at 12:52; Status DC Clindamycin Phosphate/Sodium Chloride (Cleocin Inj/NS Inj) 104 ml @ 208 mls/hr Q8H IV Last administered on 06/03/17 15:17; Start 05/28/17 at 15:00; Stop 06/03 at 18:09; Status DC Miscellaneous Information ALL NURSING DEPARTME... UNSCH PRN .XX SEE LABEL COMMENTS; Start 05/28/17 at 09:15; Stop 05/29/17 at 09:14; Status DC Fentanyl Citrate (fentaNYL INJ) 100 mcg STK-MED ONCE .ROUTE ; Start 05/28/17 at 09:54; Stop 05/28/17 at 09:55; Status DC Morphine Sulfate (Morphine Inj) 4 mg STK-MED ONCE .ROUTE ; Start 05/28/17 at 09: 54; Stop 05/28/17 at 09:55; Status DC Promethazine HCl (*PHENERGAN INJ PERIprocedural ONLY) 25 mg STK-MED ONCE .ROUTE ; Start 05/28/17 at 10:51; Stop 05/28/17 at 10:52; Status DC Midazolam HCl (Versed Inj) 2 mg STK-MED ONCE .ROUTE Last administered on 12:36; Start 05/28/17 at 12:36; Stop 05/28/17 at 12:37; Status DC Midazolam HCl (Versed Inj) 2 mg STK-MED ONCE .ROUTE Last administered on 12:36; Start 05/28/17 at 12:36; Stop 05/28/17 at 12:37; Status DC Fentanyl Citrate 250 mcg 250 mcg STK-MED ONCE .ROUTE Last administered on 12:37; Start 05/28/17 at 12:37; Stop 05/28/17 at 12:38; Status DC Cefazolin Sodium/ Dextrose (Ancef 2 Gm Premix) 50 ml @ As Directed STK-MED ONCE .ROUTE Last administered on 05/28/17 12:37; Start 05/28/17 at 12:37; Stop at 12:38; Status DC Acetaminophen/ Hydrocodone Bitart (Watkins 5-325 Mg) 2 tab Q6H PRN PO PAIN SCALE 6 TO 10 Last administered on 06/04/17 06:53; Start 05/28/17 at 18:00; Stop 06/04/17 at 12:52; Status DC Morphine Sulfate (Morphine Inj) 2 mg Q2H PRN IV PAIN 1-10; Start 05/29/17 at 16: 15; Stop 06/04/17 at 12:52; Status DC Sodium Biphosphate/ Sodium Phosphate (Fleets Enema (Adult)) 133 ml ONCE ONCE RECTAL Last administered on 06/04/17 09:07; Start 06/04/17 at 09:00; Stop 09/10 at 09:01; Status DC Fluconazole (Diflucan) 200 mg ONCE ONCE PO Last administered on 06/03/17 20: 57; Start 06/03/17 at 18:15; Stop 06/03/17 at 18:16; Status DC Fluconazole (Diflucan) 100 mg DAILY PO Last administered on 06/04/17 09:07; Start 06/04/17 at 09:00; Stop 06/04/17 at 12:52; Status DC Attending Statement Continue neuro checks. Status post by placement of a lumbar drain. drain.Will inject contrast media into the subarachnoid space and obtain a CT cisternogram. and nuclear medicine cisternogram Pulmonary. Continue aggressive pulmonary toilette, nasotracheal suction, and breathing treatments with nebulizers. Daily PT and OT Nutrition. Oral diet Renal. Continue to monitor closely urine output, BUN and creatinine Endocrine. Continue Monitor serial Acu checks and SSI as needed Continue to monitor for signs of infection Continue Protonix for stress ulcer prophylaxis Continue Jadon copeland and SCD's for DVT prophylaxis Ousmane Bach MD Jun 01, 2017 16:49
[2017-06-01 20:00] VITALS: BP 118/69; PULSE 77; RESP 20; TEMP 98.1; O2SAT 98
[2017-06-02 00:43] VITALS: BP 116/59; PULSE 88; RESP 18; TEMP 98.2; O2SAT 97
[2017-06-02 04:00] VITALS: BP 124/77; PULSE 81; RESP 18; TEMP 98.9; O2SAT 98
[2017-06-02] MEDS: ACETAMINOPHEN/HYDROcodone 325 MG/5 MG TAB PO PRN ×3 (05:35→18:45)
[2017-06-02] MEDS: CLINDAMYCIN 600 MG/NS 100 ML IV SCH ×6 (05:35→21:42)
[2017-06-02] MEDS: LACTATED RINGER'S 1000 ML INJ 1,000 ML IV SCH ×2 (05:36→23:43)
[2017-06-02] MEDS: ONDANSETRON HCL 4 MG/2 ML VIAL IV PUSH PRN ×3 (05:38→18:46)
[2017-06-02 08:02] VITALS: BP 107/61; PULSE 81; RESP 20; TEMP 98.3; O2SAT 97
[2017-06-02] MEDS: acetaZOLAMIDE SEQUELS 500 MG SUSTAINED RELEASE CAP PO SCH ×2 (08:24→21:42)
[2017-06-02] MEDS: DOCUSATE CALCIUM 240 MG CAP PO SCH (08:24)
[2017-06-02 20:23] VITALS: BP 126/69; PULSE 80; RESP 16; TEMP 98.6; O2SAT 96
[2017-06-02 23:58] VITALS: BP 115/75; PULSE 74; RESP 20; TEMP 98; O2SAT 97
[2017-06-03] MEDS: LACTATED RINGER'S 1000 ML INJ 1,000 ML IV SCH (01:53)
[2017-06-03 04:14] VITALS: BP 116/72; PULSE 72; RESP 18; TEMP 97.1; O2SAT 99
[2017-06-03] MEDS: CLINDAMYCIN 600 MG/NS 100 ML IV SCH ×4 (06:14→15:17)
[2017-06-03] MEDS: ONDANSETRON HCL 4 MG/2 ML VIAL IV PUSH PRN ×3 (06:14→19:41)
[2017-06-03] MEDS: ACETAMINOPHEN/HYDROcodone 325 MG/5 MG TAB PO PRN ×4 (06:14→19:43)
[2017-06-03 08:19] VITALS: BP 103/66; PULSE 83; RESP 20; TEMP 98; O2SAT 97
[2017-06-03] MEDS: acetaZOLAMIDE SEQUELS 500 MG SUSTAINED RELEASE CAP PO SCH ×2 (08:56→20:57)
[2017-06-03] MEDS: DOCUSATE CALCIUM 240 MG CAP PO SCH (08:56)
[2017-06-03 12:00] VITALS: BP 107/68; PULSE 74; RESP 20; TEMP 98.4; O2SAT 99
--- NOTE | 2017-06-03 12:06 | RADRPT ---
EXAM DATE/TIME: 06/02/2017 11:25 [facility] COMPARISON: CT SINUSES W/O CONTRAST, June 02, 2017, 15:45. INDICATIONS : CSF leak. DOSE: 0.525 mCi Indium-111 DTPA Intrathecal CALCULATIONS: PLANAR IMAGIN min, 4 hrs MEDICAL HISTORY : None SURGICAL HISTORY : Tonsillectomy. Frenulectomy, Breast reduction ENCOUNTER: Initial ACUITY: 1 week PAIN SCALE: 2/10 LOCATION: Head. TECHNIQUE: Following administration of radiotracer, pledgets were placed in the nose. These pledgets were then t aken out after the study and evaluated for weight as well as counts and compared to plasma activity. FINDINGS: Planar imaging over the spine and brain was performed after injection of radiotracer demonstrating a normal appearance to the basal cisterns and lumbar spine with no evidence of CSF leak noted on imagin g. Measurement of the pledgets following the examination demonstrates pledget weight and activities as f ollows: Net weight counts/CC pledgets/plasma ratio. Left posterior/superior. 0.1370 Right posterior/superior 0.0370 3594.59 2.5842 Left anterior/superior 0.1030 Right anterior/superior 0.1870 Left floor 0.1380 1079.71 0.7762 Right floor 0.0850 2023.53 1.4547 CONCLUSION: 1. Scintigraphic images show no obvious CSF leak. 2. However, pledget weights and activities would suggest a small CSF leak in the right posterior/supe rior location. Thom Colvin MD on June 03, 2017 at 10:42 Board Certified Radiologist. This report was verified electronically.
--- NOTE | 2017-06-03 14:48 | RADRPT ---
EXAM DATE/TIME: 06/02/2017 15:45 [facility] COMPARISON: CT SINUSES W/O CONTRAST, May 31, 2017, 19:34. INDICATIONS : Headaches for two years, cerebral spinal fluid leak. RADIATION DOSE: 9.22 CTDIvol (mGy) MEDICAL HISTORY : Chronic migraines SURGICAL HISTORY : Septoplasty. ENCOUNTER: Initial ACUITY: >1 yr PAIN SCORE: 1/10 LOCATION: Bilateral cranial TECHNIQUE: Volumetric scanning of the paranasal sinuses was performed. Using automated exposure control and adj ustment of the mA and/or kV according to patient size, radiation dose was kept as low as reasonably a chievable to obtain optimal diagnostic quality images. DICOM format image data is available electro nically for review and comparison. FINDINGS: There is pansinusitis with mucoperiosteal thickening throughout the paranasal sinuses. Possible super imposed acute component in the frontal sinuses with air-fluid levels. On the direct coronal and sagit ho reconstructions, I do not see contrast material within the paranasal sinuses to suggest a large C SF leak. Contrast is identified in the subarachnoid distribution characteristic of the recent lumbar joint injection. Findings a prior nasal surgery with resection of the middle turbinates in the nasal passages erin le CONCLUSION: 1. Pansinusitis with a possible acute component in the frontals. 2. Prior sinus surgery with bilateral turbinectomies. 3. No obvious contrast in the paranasal sinuses to suggest a large CSF leak. Thom Colvin MD on June 03, 2017 at 14:42 Board Certified Radiologist. This report was verified electronically.
[2017-06-03 15:40] VITALS: BP 106/65; PULSE 76; RESP 20; TEMP 98.7; O2SAT 99
--- NOTE | 2017-06-03 15:52 | HHI.NSPN ---
Note Status Status: Progress Note Interval History Diagnosis CSF leak Interval History THIS NOTE REFLECTS MY ENCOUNTER WITH MS HORTA ON 06/02/17 DUEING ROUNDS This is a 27-year-old female brought to [place] by for an elective intranasal procedure. She develop a cerebral spinal fluid leak which was explored by . No evidence of infection. No evidence of meningitis. Neurosurgical consultation was requested 06/02 CT and no care medicine cisternogram have been performed. She reports persistent headaches. She denies rhinorrhea or CSF leak. She is requesting to keep her lumbar drain overnight Labs, Micro, & Vital Signs Results THIS NOTE REFLECTS MY ENCOUNTER WITH MS HORTA ON 06/02/17 DUEING ROUNDS Date Time Temp Pulse Resp B/P Pulse Ox O2 Delivery O2 Flow Rate FiO2 06/03/17 15:40 98.7 76 20 106/65 99 06/03/17 12:00 98.4 74 20 107/68 99 06/03/17 08:19 98.0 83 20 103/66 97 06/03/17 04:14 97.1 72 18 116/72 99 06/02/17 23:58 98.0 74 20 115/75 97 06/02/17 20:23 98.6 80 16 126/69 96 06/03/17 07:00 Intake Total 1860 ml Output Total 160 ml Balance 1700 ml Constitutional THIS NOTE REFLECTS MY ENCOUNTER WITH MS HORTA ON 06/02/17 DUEING ROUNDS Vital Signs Date Time Temp Pulse Resp B/P Pulse Ox O2 Delivery O2 Flow Rate FiO2 06/03/17 15:40 98.7 76 20 106/65 99 06/03/17 12:00 98.4 74 20 107/68 99 06/03/17 08:19 98.0 83 20 103/66 97 06/03/17 04:14 97.1 72 18 116/72 99 06/02/17 23:58 98.0 74 20 115/75 97 06/02/17 20:23 98.6 80 16 126/69 96 06/03/17 07:00 Intake Total 1860 ml Output Total 160 ml Balance 1700 ml Review of Systems/Exam Exam THIS NOTE REFLECTS MY ENCOUNTER WITH MS HORTA ON 06/02/17 DUEING ROUNDS Ms Horta is alert, awake and oriented to time, place and person. Speech is fluent. Higher cognitive functions are normal. No CSF leak. Cranial nerve examination demonstrates the pupils to be equal, round, and reactive to light. Extra-ocular movements are intact. Facial motor and sensory function are normal and symmetrical. Gross hearing is intact, bilaterally. The uvula is midline and elevates symmetrically with the soft palate. Sternocleidomastoid and trapezius muscles have normal and symmetrical strength. Other cranial nerves are intact. Neck is soft and supple. Cervical spine has a full range of motion in anterior flexion, extension, lateral bending, and rotation without pain. There is no tenderness to palpation to the spinous processes or paraspinal muscles. Muscle testing reveals normal bulk and tone overall without rigidity, spasticity , fasciculations, or atrophy. 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 In the lower extremities, strength is 5/5 in both iliopsoas, quadriceps, hamstrings, plantar flexion, dorsiflexion, and extensor hallicus longus. Sensory examination is intact to light touch and sharp/dull discrimination in both the upper and lower extremities, symmetrically. Deep tendon reflexes are 2+ and symmetrical in the biceps, triceps, and brachioradialis, bilaterally, in the upper extremities. In the lower extremities , the patellar and Achilles are 2+, bilaterally. There is a bilateral plantar flexion response. Hoffmanns sign is negative. There is no clonus or other abnormal reflexes noted. Cerebellar examination is intact to [id number] test, rapid rhythmic alternating motion. There is no dysmetria, dysdiadochokinesia, truncal ataxia, or tremor. Medications Current Medications THIS NOTE REFLECTS MY ENCOUNTER WITH MS HORTA ON 06/02/17 DUEING ROUNDS Medications Medications Current Medications Current Medications Lactated Ringer's 1,000 ml @ 30 mls/hr Q24H PRN IV SEE LABEL COMMENTS Last administered on 05/27/17t 15:15; Start 05/27/17 at 15:45; Stop 05/27/17 at 19:41; Status DC Sodium Chloride (NS 500 ml Inj) 500 ml @ 30 mls/hr [id number] PRN IV SEE LABEL COMMENTS; Start 05/27/17 at 15:45; Stop 05/27/17 at 19:41; Status DC Metoprolol Tartrate (Lopressor) 25 mg [employer] PRN PO SEE LABEL COMMENTS; Start 05/27/17 at 15:45; Stop 05/30/17 at 15:44; Status DC Povidone Iodine (Betadine 5% Antisepsis Kit) 1 applic [employer] PRN EACH NARE SEE LABEL COMMENTS; Start 05/27/17 at 15:45; Stop 05/30/17 at 15:44; Status DC Chlorhexidine Gluconate (Chlorhexidine 2% Cloth) 3 pack [employer] PRN TOPICAL SEE LABEL COMMENTS; Start 05/27/17 at 15:45; Stop 05/28/17 at 05:02; Status DC Insulin Human Regular See Protocol Table ... [employer] PRN SQ SEE PROTOCOL TABLE ; Start 05/27/17 at 15:45; Stop 05/28/17 at 05:02; Status DC Clindamycin Phosphate/Sodium Chloride (Cleocin Inj/NS Inj) 104 ml @ 208 mls/hr [employer] IV ; Start 05/27/17 at 15:45; Stop 05/28/17 at 15:44; Status DC Clindamycin Phosphate 600 mg 600 mg STK-MED ONCE .ROUTE ; Start 05/27/17 at 15:44 ; Stop 05/27/17 at 15:45; Status DC Sodium Chloride 100 ml @ As Directed STK-MED ONCE .ROUTE ; Start 05/27/17 at 15: 45; Stop 05/27/17 at 15:46; Status DC Lactated Ringer's (Lr 1000 ml Inj) 1,000 ml @ 60 mls/hr [id number] IV Last administered on 06/01/17 15:35; Start 05/27/17 at 20:00; Stop 06/03/17 at 18:08; Status DC Acetaminophen/ Hydrocodone Bitart ([place] 5-325 Mg) 1 tab Q6H PRN PO PAIN SCALE 1 TO 5; Start 05/27/17 at 19:45; Stop 05/28/17 at 09:43; Status DC Acetaminophen/ Hydrocodone Bitart ([place] 5-325 Mg) 2 tab Q6H PRN PO PAIN SCALE 6 TO 10 Last administered on 05/28/17 02:17; Start 05/27/17 at 19:45; Stop 05/28/17 at 09:43; Status DC Alprazolam (Xanax) 0.25 mg Q8H PRN PO ANXIETY Last administered on 05/29/17 20: 35; Start 05/27/17 at 19:45; Stop 06/04/17 at 12:52; Status DC Docusate Calcium (Surfak) 240 mg DAILY PO Last administered on 06/04/17 09:07 ; Start 05/28/17 at 09:00; Stop 06/04/17 at 12:52; Status DC Acetazolamide 500 mg 500 mg BID PO Last administered on 06/04/17 09:06; Start 05/27/17 at 21:00; Stop 06/04/17 at 12:52; Status DC Lactated Ringer's (Lr 1000 ml Inj) 1,000 ml @ 30 mls/hr Q24H PRN IV SEE LABEL COMMENTS; Start 05/28/17 at 05:15; Stop 05/31/17 at 05:14; Status DC Chlorhexidine Gluconate (Chlorhexidine 2% Cloth) 3 pack [employer] PRN TOPICAL SEE LABEL COMMENTS; Start 05/28/17 at 05:15; Stop 05/31/17 at 05:14; Status DC Insulin Human Regular (NovoLIN R INJ) See Protocol Table ... [employer]ANT PRN SQ SEE PROTOCOL TABLE; Start 05/28/17 at 05:15; Stop 05/31/17 at 05:14; Status DC Thrombin (Thrombin Top Soln) 10,000 units STK-MED ONCE .ROUTE ; Start 05/28/17 at 07:05; Stop 05/28/17 at 07:06; Status DC Epinephrine HCl (Adrenalin (1:1000) Inj) 1 mg STK-MED ONCE .ROUTE ; Start at 07:05; Stop 05/28/17 at 07:06; Status DC Oxymetazoline HCl (Afrin 0.05% [place]) 15 spray STK-MED ONCE .ROUTE Last administered on 05/28/17 07:46; Start 05/28/17 at 07:06; Stop 05/28/17 at 07:07; Status DC Bacitracin (Baciguent Oint) 15 applic STK-MED ONCE .ROUTE ; Start 05/28/17 at 07: 06; Stop 05/28/17 at 07:07; Status DC Lidocaine/ Epinephrine (Xylocaine-Epi 1%-1:100,000 Inj) 60 ml STK-MED ONCE .ROUTE Last administered on 05/28/17 07:46; Start 05/28/17 at 07:06; Stop at 07:07; Status DC Lidocaine/ Epinephrine (Xylocaine-Epi 1%-1:100,000 Inj) 20 ml STK-MED ONCE .ROUTE ; Start 05/28/17 at 07:07; Stop 05/28/17 at 07:08; Status DC Aprepitant (Emend) 40 mg STK-MED ONCE .ROUTE Last administered on 05/28/17 07: 14; Start 05/28/17 at 07:13; Stop 05/28/17 at 07:14; Status DC Midazolam HCl (Versed Inj) 2 mg STK-MED ONCE .ROUTE ; Start 05/28/17 at 07:17; Stop 05/28/17 at 07:18; Status DC Dexamethasone Sodium Phosphate (Decadron Inj) 8 mg STK-MED ONCE .ROUTE ; Start 05/28/17 at 07:17; Stop 05/28/17 at 07:18; Status DC Famotidine (Pepcid Inj) 20 mg STK-MED ONCE .ROUTE ; Start 05/28/17 at 07:17; Stop 05/28/17 at 07:18; Status DC Acetaminophen (Ofirmev Inj) 1,000 mg STK-MED ONCE IV ; Start 05/28/17 at 07:30; Stop 05/28/17 at 07:31; Status DC Oxymetazoline HCl (Afrin 0.05% [place]) 30 spray STK-MED ONCE .ROUTE ; Start 05/28/17 at 08:16; Stop 05/28/17 at 08:17; Status DC Morphine Sulfate (*morphine INJ PERIprocedure ONLY) 8 mg STK-MED ONCE .ROUTE Last administered on 05/28/17 09:21; Start 05/28/17 at 09:21; Stop 05/28/17 at 09: 22; Status DC Ondansetron HCl 4 mg 4 mg Q6H PRN IV PUSH NAUSEA OR VOMITING Last administered on 06/04/17 06:53; Start 05/28/17 at 09:45; Stop 06/04/17 at 12:52; Status DC Lactated Ringer's (Lr 1000 ml Inj) 1,000 ml @ 60 mls/hr [id number] IV Last administered on 06/02/17 23:43; Start 05/28/17 at 10:00; Stop 06/03/17 at 18:08; Status DC Acetaminophen/ Hydrocodone Bitart 1 tab 1 tab Q6H PRN PO PAIN SCALE 1 TO 5 Last administered on 06/03/17 12:55; Start 05/28/17 at 09:45; Stop 06/04/17 at 12:52; Status DC Clindamycin Phosphate/Sodium Chloride (Cleocin Inj/NS Inj) 104 ml @ 208 mls/hr Q8H IV Last administered on 06/03/17 15:17; Start 05/28/17 at 15:00; Stop 06/03 at 18:09; Status DC Miscellaneous Information ALL NURSING DEPARTME... UNSCH PRN .XX SEE LABEL COMMENTS; Start 05/28/17 at 09:15; Stop 05/29/17 at 09:14; Status DC Fentanyl Citrate (fentaNYL INJ) 100 mcg STK-MED ONCE .ROUTE ; Start 05/28/17 at 09:54; Stop 05/28/17 at 09:55; Status DC Morphine Sulfate (Morphine Inj) 4 mg STK-MED ONCE .ROUTE ; Start 05/28/17 at 09: 54; Stop 05/28/17 at 09:55; Status DC Promethazine HCl (*PHENERGAN INJ PERIprocedural ONLY) 25 mg STK-MED ONCE .ROUTE ; Start 05/28/17 at 10:51; Stop 05/28/17 at 10:52; Status DC Midazolam HCl (Versed Inj) 2 mg STK-MED ONCE .ROUTE Last administered on 12:36; Start 05/28/17 at 12:36; Stop 05/28/17 at 12:37; Status DC Midazolam HCl (Versed Inj) 2 mg STK-MED ONCE .ROUTE Last administered on 12:36; Start 05/28/17 at 12:36; Stop 05/28/17 at 12:37; Status DC Fentanyl Citrate 250 mcg 250 mcg STK-MED ONCE .ROUTE Last administered on 12:37; Start 05/28/17 at 12:37; Stop 05/28/17 at 12:38; Status DC Cefazolin Sodium/ Dextrose (Ancef 2 Gm Premix) 50 ml @ As Directed STK-MED ONCE .ROUTE Last administered on 05/28/17 12:37; Start 05/28/17 at 12:37; Stop at 12:38; Status DC Acetaminophen/ Hydrocodone Bitart ([place] 5-325 Mg) 2 tab Q6H PRN PO PAIN SCALE 6 TO 10 Last administered on 06/04/17 06:53; Start 05/28/17 at 18:00; Stop 06/04/17 at 12:52; Status DC Morphine Sulfate (Morphine Inj) 2 mg Q2H PRN IV PAIN 1-10; Start 05/29/17 at 16: 15; Stop 06/04/17 at 12:52; Status DC Sodium Biphosphate/ Sodium Phosphate (Fleets Enema (Adult)) 133 ml ONCE ONCE RECTAL Last administered on 06/04/17 09:07; Start 06/04/17 at 09:00; Stop 09/10 at 09:01; Status DC Fluconazole (Diflucan) 200 mg ONCE ONCE PO Last administered on 06/03/17 20: 57; Start 06/03/17 at 18:15; Stop 06/03/17 at 18:16; Status DC Fluconazole (Diflucan) 100 mg DAILY PO Last administered on 06/04/17 09:07; Start 06/04/17 at 09:00; Stop 06/04/17 at 12:52; Status DC Medical Decision Making Medical Decision Making MDM Remarks Last Impressions Sinuses CT 06/02/17 1530 Signed Impressions: Service Date/Time: Friday, June 02, 2017 15:45 - CONCLUSION: 1. Pansinusitis with a possible acute component in the frontals. 2. Prior sinus surgery with bilateral turbinectomies. 3. No obvious contrast in the paranasal sinuses to suggest a large CSF leak. Thom Colvin MD CSF Scan Nuclear Medicine 06/02/17 0000 Signed Impressions: Service Date/Time: Friday, June 02, 2017 11:25 - CONCLUSION: 1. Scintigraphic images show no obvious CSF leak. 2. However, pledget weights and activities would suggest a small CSF leak in the right posterior/superior location. Thom Colvin MD Lumbar Puncture Fluoroscopy 05/28/17 0000 Signed Impressions: Service Date/Time: Sunday, May 28, 2017 12:31 - CONCLUSION: Uncomplicated lumbar drain placement as above. Jed Francis MD Medical Decision Making MDM Remarks THIS NOTE REFLECTS MY ENCOUNTER WITH MS HORTA ON 06/02/17 DUEING ROUNDS Last Impressions Sinuses CT 06/02/17 1530 Signed Impressions: Service Date/Time: Friday, June 02, 2017 15:45 - CONCLUSION: 1. Pansinusitis with a possible acute component in the frontals. 2. Prior sinus surgery with bilateral turbinectomies. 3. No obvious contrast in the paranasal sinuses to suggest a large CSF leak. Thom Colvin MD CSF Scan Nuclear Medicine 06/02/17 0000 Signed Impressions: Service Date/Time: Friday, June 02, 2017 11:25 - CONCLUSION: 1. Scintigraphic images show no obvious CSF leak. 2. However, pledget weights and activities would suggest a small CSF leak in the right posterior/superior location. Thom Colvin MD Lumbar Puncture Fluoroscopy 05/28/17 0000 Signed Impressions: Service Date/Time: Sunday, May 28, 2017 12:31 - CONCLUSION: Uncomplicated lumbar drain placement as above. Jed Francis MD Attending Statement THIS NOTE REFLECTS MY ENCOUNTER WITH MS HORTA ON 06/02/17 DUEING ROUNDS Continue neuro checks. The CT cisternogram. and nuclear medicine cisternogram did not show CSF leak on the CT, but it was weakly positive in thew nuclear medicine test. I discussed with her and her mother the alternatives of treatment. We will remove the lumbar drain and observe clinically Pulmonary. Continue aggressive pulmonary toilette, nasotracheal suction, and breathing treatments with nebulizers. Daily PT and OT Nutrition. Oral diet Renal. Continue to monitor closely urine output, BUN and creatinine Endocrine. Continue Monitor serial Acu checks and SSI as needed Continue to monitor for signs of infection Continue Protonix for stress ulcer prophylaxis Continue Jadon hose and SCD's for DVT prophylaxis Discussed with Ousmane Balderas MD Jun 03, 2017 15:52
--- NOTE | 2017-06-03 15:52 | HHI.NSPN ---
Note Status Status: Progress Note Interval History Diagnosis CSF leak Interval History This is a 27-year-old female brought to [facility] by for an elective intranasal procedure. She develop a cerebral spinal fluid leak which was explored by . No evidence of infection. No evidence of meningitis. Neurosurgical consultation was requested 05/29,. Status post lumbar drain placement. Midly unconfortable. No CSF leak 05/30. She reports severe headaches after shw got up. Denies CSF leak. Lumbar drain worsking well 06/03. The lumbar drain was removed yesterday episode of emesis and reports that she leaked CSF again today. Clinicallly she is not leaking at this time. Labs, Micro, & Vital Signs Results Date Time Temp Pulse Resp B/P Pulse Ox O2 Delivery O2 Flow Rate FiO2 06/03/17 15:40 98.7 76 20 106/65 99 06/03/17 12:00 98.4 74 20 107/68 99 06/03/17 08:19 98.0 83 20 103/66 97 06/03/17 04:14 97.1 72 18 116/72 99 06/02/17 23:58 98.0 74 20 115/75 97 06/02/17 20:23 98.6 80 16 126/69 96 06/03/17 07:00 Intake Total 1860 ml Output Total 160 ml Balance 1700 ml Constitutional Vital Signs Date Time Temp Pulse Resp B/P Pulse Ox O2 Delivery O2 Flow Rate FiO2 06/03/17 15:40 98.7 76 20 106/65 99 06/03/17 12:00 98.4 74 20 107/68 99 06/03/17 08:19 98.0 83 20 103/66 97 06/03/17 04:14 97.1 72 18 116/72 99 06/02/17 23:58 98.0 74 20 115/75 97 06/02/17 20:23 98.6 80 16 126/69 96 06/03/17 07:00 Intake Total 1860 ml Output Total 160 ml Balance 1700 ml Review of Systems/Exam Exam Nieves is alert, awake and oriented to time, place and person. Speech is fluent. She is report dated earlier. He cannot be reproduced at this time Cranial nerve examination demonstrates the pupils to be equal, round, and reactive to light. Extra-ocular movements are intact. Facial motor and sensory function are normal and symmetrical. Gross hearing is intact, bilaterally. The uvula is midline and elevates symmetrically with the soft palate. Sternocleidomastoid and trapezius muscles have normal and symmetrical strength. Other cranial nerves are intact. Neck is soft and supple. Cervical spine has a full range of motion in anterior flexion, extension, lateral bending, and rotation without pain. There is no tenderness to palpation to the spinous processes or paraspinal muscles. Muscle testing reveals normal bulk and tone overall without rigidity, spasticity , fasciculations, or atrophy. Muscle strength is 5/5 in all muscle groups of both upper extremities including deltoid, biceps, triceps, brachioradialis, wrist extension and turret press operator. In the lower extremities, strength is 5/5 in both iliopsoas, quadriceps, hamstrings, plantar flexion, dorsiflexion, and extensor hallicus longus. Sensory examination is intact to light touch and sharp/dull discrimination in both the upper and lower extremities, symmetrically. Deep tendon reflexes are 2+ and symmetrical in the biceps, triceps, and brachioradialis, bilaterally, in the upper extremities. In the lower extremities , the patellar and Achilles are 2+, bilaterally. There is a bilateral plantar flexion response. Hoffmanns sign is negative. There is no clonus or other abnormal reflexes noted. Cerebellar examination is intact to [id number] test, rapid rhythmic alternating motion. There is no dysmetria, dysdiadochokinesia, truncal ataxia, or tremor. Medications Current Medications Current Medications Lactated Ringer's 1,000 ml @ 30 mls/hr Q24H PRN IV SEE LABEL COMMENTS Last administered on 05/27/17t 15:15; Start 05/27/17 at 15:45; Stop 05/27/17 at 19:41; Status DC Sodium Chloride (NS 500 ml Inj) 500 ml @ 30 mls/hr [id number] PRN IV SEE LABEL COMMENTS; Start 05/27/17 at 15:45; Stop 05/27/17 at 19:41; Status DC Metoprolol Tartrate (Lopressor) 25 mg SUPERINTENDENT RECREATION PRN PO SEE LABEL COMMENTS; Start 05/27/17 at 15:45; Stop 05/30/17 at 15:44; Status DC Povidone Iodine (Betadine 5% Antisepsis Kit) 1 applic SUPERINTENDENT RECREATION PRN EACH NARE SEE LABEL COMMENTS; Start 05/27/17 at 15:45; Stop 05/30/17 at 15:44; Status DC Chlorhexidine Gluconate (Chlorhexidine 2% Cloth) 3 pack SUPERINTENDENT RECREATION PRN TOPICAL SEE LABEL COMMENTS; Start 05/27/17 at 15:45; Stop 05/28/17 at 05:02; Status DC Insulin Human Regular See Protocol Table ... SUPERINTENDENT RECREATION PRN SQ SEE PROTOCOL TABLE ; Start 05/27/17 at 15:45; Stop 05/28/17 at 05:02; Status DC Clindamycin Phosphate/Sodium Chloride (Cleocin Inj/NS Inj) 104 ml @ 208 mls/hr SUPERINTENDENT RECREATION IV ; Start 05/27/17 at 15:45; Stop 05/28/17 at 15:44; Status DC Clindamycin Phosphate 600 mg 600 mg STK-MED ONCE .ROUTE ; Start 05/27/17 at 15:44 ; Stop 05/27/17 at 15:45; Status DC Sodium Chloride 100 ml @ As Directed STK-MED ONCE .ROUTE ; Start 05/27/17 at 15: 45; Stop 05/27/17 at 15:46; Status DC Lactated Ringer's (Lr 1000 ml Inj) 1,000 ml @ 60 mls/hr [id number] IV Last administered on 06/01/17 15:35; Start 05/27/17 at 20:00; Stop 06/03/17 at 18:08; Status DC Acetaminophen/ Hydrocodone Bitart ([place] 5-325 Mg) 1 tab Q6H PRN PO PAIN SCALE 1 TO 5; Start 05/27/17 at 19:45; Stop 05/28/17 at 09:43; Status DC Acetaminophen/ Hydrocodone Bitart ([place] 5-325 Mg) 2 tab Q6H PRN PO PAIN SCALE 6 TO 10 Last administered on 05/28/17 02:17; Start 05/27/17 at 19:45; Stop 05/28/17 at 09:43; Status DC Alprazolam (Xanax) 0.25 mg Q8H PRN PO ANXIETY Last administered on 05/29/17 20: 35; Start 05/27/17 at 19:45; Stop 06/04/17 at 12:52; Status DC Docusate Calcium (Surfak) 240 mg DAILY PO Last administered on 06/04/17 09:07 ; Start 05/28/17 at 09:00; Stop 06/04/17 at 12:52; Status DC Acetazolamide 500 mg 500 mg BID PO Last administered on 06/04/17 09:06; Start 05/27/17 at 21:00; Stop 06/04/17 at 12:52; Status DC Lactated Ringer's (Lr 1000 ml Inj) 1,000 ml @ 30 mls/hr Q24H PRN IV SEE LABEL COMMENTS; Start 05/28/17 at 05:15; Stop 05/31/17 at 05:14; Status DC Chlorhexidine Gluconate (Chlorhexidine 2% Cloth) 3 pack SUPERINTENDENT RECREATION PRN TOPICAL SEE LABEL COMMENTS; Start 05/28/17 at 05:15; Stop 05/31/17 at 05:14; Status DC Insulin Human Regular (NovoLIN R INJ) See Protocol Table ... SUPERINTENDENT RECREATION PRN SQ SEE PROTOCOL TABLE; Start 05/28/17 at 05:15; Stop 05/31/17 at 05:14; Status DC Thrombin (Thrombin Top Soln) 10,000 units STK-MED ONCE .ROUTE ; Start 05/28/17 at 07:05; Stop 05/28/17 at 07:06; Status DC Epinephrine HCl (Adrenalin (1:1000) Inj) 1 mg STK-MED ONCE .ROUTE ; Start at 07:05; Stop 05/28/17 at 07:06; Status DC Oxymetazoline HCl (Afrin 0.05% [place]) 15 spray STK-MED ONCE .ROUTE Last administered on 05/28/17 07:46; Start 05/28/17 at 07:06; Stop 05/28/17 at 07:07; Status DC Bacitracin (Baciguent Oint) 15 applic STK-MED ONCE .ROUTE ; Start 05/28/17 at 07: 06; Stop 05/28/17 at 07:07; Status DC Lidocaine/ Epinephrine (Xylocaine-Epi 1%-1:100,000 Inj) 60 ml STK-MED ONCE .ROUTE Last administered on 05/28/17 07:46; Start 05/28/17 at 07:06; Stop at 07:07; Status DC Lidocaine/ Epinephrine (Xylocaine-Epi 1%-1:100,000 Inj) 20 ml STK-MED ONCE .ROUTE ; Start 05/28/17 at 07:07; Stop 05/28/17 at 07:08; Status DC Aprepitant (Emend) 40 mg STK-MED ONCE .ROUTE Last administered on 05/28/17 07: 14; Start 05/28/17 at 07:13; Stop 05/28/17 at 07:14; Status DC Midazolam HCl (Versed Inj) 2 mg STK-MED ONCE .ROUTE ; Start 05/28/17 at 07:17; Stop 05/28/17 at 07:18; Status DC Dexamethasone Sodium Phosphate (Decadron Inj) 8 mg STK-MED ONCE .ROUTE ; Start 05/28/17 at 07:17; Stop 05/28/17 at 07:18; Status DC Famotidine (Pepcid Inj) 20 mg STK-MED ONCE .ROUTE ; Start 05/28/17 at 07:17; Stop 05/28/17 at 07:18; Status DC Acetaminophen (Ofirmev Inj) 1,000 mg STK-MED ONCE IV ; Start 05/28/17 at 07:30; Stop 05/28/17 at 07:31; Status DC Oxymetazoline HCl (Afrin 0.05% [place]) 30 spray STK-MED ONCE .ROUTE ; Start 05/28/17 at 08:16; Stop 05/28/17 at 08:17; Status DC Morphine Sulfate (*morphine INJ PERIprocedure ONLY) 8 mg STK-MED ONCE .ROUTE Last administered on 05/28/17 09:21; Start 05/28/17 at 09:21; Stop 05/28/17 at 09: 22; Status DC Ondansetron HCl 4 mg 4 mg Q6H PRN IV PUSH NAUSEA OR VOMITING Last administered on 06/04/17 06:53; Start 05/28/17 at 09:45; Stop 06/04/17 at 12:52; Status DC Lactated Ringer's (Lr 1000 ml Inj) 1,000 ml @ 60 mls/hr [id number] IV Last administered on 06/02/17 23:43; Start 05/28/17 at 10:00; Stop 06/03/17 at 18:08; Status DC Acetaminophen/ Hydrocodone Bitart 1 tab 1 tab Q6H PRN PO PAIN SCALE 1 TO 5 Last administered on 06/03/17 12:55; Start 05/28/17 at 09:45; Stop 06/04/17 at 12:52; Status DC Clindamycin Phosphate/Sodium Chloride (Cleocin Inj/NS Inj) 104 ml @ 208 mls/hr Q8H IV Last administered on 06/03/17 15:17; Start 05/28/17 at 15:00; Stop 06/03 at 18:09; Status DC Miscellaneous Information ALL NURSING DEPARTME... UNSCH PRN .XX SEE LABEL COMMENTS; Start 05/28/17 at 09:15; Stop 05/29/17 at 09:14; Status DC Fentanyl Citrate (fentaNYL INJ) 100 mcg STK-MED ONCE .ROUTE ; Start 05/28/17 at 09:54; Stop 05/28/17 at 09:55; Status DC Morphine Sulfate (Morphine Inj) 4 mg STK-MED ONCE .ROUTE ; Start 05/28/17 at 09: 54; Stop 05/28/17 at 09:55; Status DC Promethazine HCl (*PHENERGAN INJ PERIprocedural ONLY) 25 mg STK-MED ONCE .ROUTE ; Start 05/28/17 at 10:51; Stop 05/28/17 at 10:52; Status DC Midazolam HCl (Versed Inj) 2 mg STK-MED ONCE .ROUTE Last administered on 12:36; Start 05/28/17 at 12:36; Stop 05/28/17 at 12:37; Status DC Midazolam HCl (Versed Inj) 2 mg STK-MED ONCE .ROUTE Last administered on 12:36; Start 05/28/17 at 12:36; Stop 05/28/17 at 12:37; Status DC Fentanyl Citrate 250 mcg 250 mcg STK-MED ONCE .ROUTE Last administered on 12:37; Start 05/28/17 at 12:37; Stop 05/28/17 at 12:38; Status DC Cefazolin Sodium/ Dextrose (Ancef 2 Gm Premix) 50 ml @ As Directed STK-MED ONCE .ROUTE Last administered on 05/28/17 12:37; Start 05/28/17 at 12:37; Stop at 12:38; Status DC Acetaminophen/ Hydrocodone Bitart ([place] 5-325 Mg) 2 tab Q6H PRN PO PAIN SCALE 6 TO 10 Last administered on 06/04/17 06:53; Start 05/28/17 at 18:00; Stop 06/04/17 at 12:52; Status DC Morphine Sulfate (Morphine Inj) 2 mg Q2H PRN IV PAIN 1-10; Start 05/29/17 at 16: 15; Stop 06/04/17 at 12:52; Status DC Sodium Biphosphate/ Sodium Phosphate (Fleets Enema (Adult)) 133 ml ONCE ONCE RECTAL Last administered on 06/04/17 09:07; Start 06/04/17 at 09:00; Stop 09/10 at 09:01; Status DC Fluconazole (Diflucan) 200 mg ONCE ONCE PO Last administered on 06/03/17 20: 57; Start 06/03/17 at 18:15; Stop 06/03/17 at 18:16; Status DC Fluconazole (Diflucan) 100 mg DAILY PO Last administered on 06/04/17 09:07; Start 06/04/17 at 09:00; Stop 06/04/17 at 12:52; Status DC Medical Decision Making MDM Remarks Last Impressions Sinuses CT 06/02/17 1530 Signed Impressions: Service Date/Time: Friday, June 02, 2017 15:45 - CONCLUSION: 1. Pansinusitis with a possible acute component in the frontals. 2. Prior sinus surgery with bilateral turbinectomies. 3. No obvious contrast in the paranasal sinuses to suggest a large CSF leak. Thom Colvin MD CSF Scan Nuclear Medicine 06/02/17 0000 Signed Impressions: Service Date/Time: Friday, June 02, 2017 11:25 - CONCLUSION: 1. Scintigraphic images show no obvious CSF leak. 2. However, pledget weights and activities would suggest a small CSF leak in the right posterior/superior location. Thom Colvin MD Lumbar Puncture Fluoroscopy 05/28/17 0000 Signed Impressions: Service Date/Time: Sunday, May 28, 2017 12:31 - CONCLUSION: Uncomplicated lumbar drain placement as above. Jed Francis MD Attending Statement Continue neuro checks. The lumbar drain was removed yesterday episode of emesis and reports that she leaked CSF again today. Clinicallly she is not leaking at this time. I discussed with her and with her mother the alternatives of treatment Pulmonary. Continue aggressive pulmonary toilette, nasotracheal suction, and breathing treatments with nebulizers. Daily PT and OT Nutrition. Oral diet Renal. Continue to monitor closely urine output, BUN and creatinine Endocrine. Continue Monitor serial Acu checks and SSI as needed Continue to monitor for signs of infection Continue Protonix for stress ulcer prophylaxis Continue Jadon hose and SCD's for DVT prophylaxis Discussed with Dr Oni Bach,Ousmane Avila MD Jun 03, 2017 15:52
[2017-06-03] MEDS ORDERED: FLUCONAZOLE 200 MG TAB PO ONE (18:15)
[2017-06-03 20:00] VITALS: BP 131/78; PULSE 79; RESP 20; TEMP 98.2; O2SAT 100
[2017-06-04 01:40] VITALS: BP 116/67; PULSE 81; RESP 18; TEMP 98.1; O2SAT 98
[2017-06-04 04:00] VITALS: BP 118/74; PULSE 72; RESP 20; TEMP 98.4; O2SAT 97
[2017-06-04] MEDS: ONDANSETRON HCL 4 MG/2 ML VIAL IV PUSH PRN (06:53)
[2017-06-04] MEDS: ACETAMINOPHEN/HYDROcodone 325 MG/5 MG TAB PO PRN (06:53)
[2017-06-04 08:28] VITALS: BP 99/63; PULSE 80; RESP 20; TEMP 98.3; O2SAT 97
[2017-06-04] MEDS ORDERED: FLUCONAZOLE 100 MG TAB PO SCH (09:00)
[2017-06-04] MEDS ORDERED: SOD PHOSPHATE/SOD BIPHOSPHATE (ADULT) ENEMA 133ML RECTAL ONE (09:00)
[2017-06-04] MEDS: acetaZOLAMIDE SEQUELS 500 MG SUSTAINED RELEASE CAP PO SCH (09:06)
[2017-06-04] MEDS: DOCUSATE CALCIUM 240 MG CAP PO SCH (09:07)
--- NOTE | 2017-06-04 17:48 | MP ---
cc: ANOOP BUNN M.D. DATE OF SURGERY: 05/28/2017. PREOPERATIVE DIAGNOSIS: 1. Septal hematoma. 2. Possible CSF rhinorrhea. POSTOPERATIVE DIAGNOSIS: 1. Septal hematoma. 2. Possible CSF rhinorrhea. OPERATIVE PROCEDURE PERFORMED: 1. Postoperative debridement of nose and sinuses. 2. Drainage of septal hematoma. SURGEON: Anoop Bunn MD. INDICATIONS FOR THE PROCEDURE: Mika Felix is a 26-year-old woman who is three days out from septoplasty along with bilateral excision of solomon bullosa. She is suspected of having CSF rhinorrhea and she complains of total nasal airway obstruction. On inspection, she has a septal hematoma and there are a few drops of clear fluid visible in the nasal vestibule. DESCRIPTION OF THE PROCEDURE IN DETAIL: The patient was taken to OR #8 and placed in the supine position. Following induction of general anesthesia and intubation, she was prepped and draped for surgery. The nose was packed bilaterally with cotton pledgets saturated in 0.05% Oxymetazoline. These remained in place for two minutes. They were then removed and the nose was examined endoscopically. The nasal vault was filled with fibrin and mucus debris bilaterally and there was evidence of septal hematoma. The Jeff incision in the left nasal vestibule was then reopened sharply and the mucosal layer was using #10 suction. The intramucosal space was then evacuated of thin dark blood and clots. This gave access to the nasal airways bilaterally. The inferior turbinates were debrided of a heavy buildup of fibrin and there were inspissated secretions and debris on the sites of the excisions of the middle turbinates which was also debrided. At this point while the patient was being inspected endoscopically in the nasal vault, she was given a Valsalva by the anesthesiologist and raised to a pressure of 50 cm of water. There was no evidence of fluid leakage from the site of the surgery. This method was then repeated on the opposite side and also there was no evidence of leakage on the left side. Lastly, the scope was placed within the intramucosal space of the septum and the Valsalva maneuver was repeated. Again there was no evidence of leakage in any location. At this point the cotton pledgets were returned to the nose for a period of 5 minutes. They were then removed and replaced with 5.5 mm Rapid Rhino packs inflated to 5 mL of air. These remained in place for a period of 20 minutes. Packing was then removed and nose was again re-inspected. There was no evidence of leaking or bleeding and the procedure was terminated. The patient was then reversed from anesthesia and taken to recovery in good condition. There were no complications. Blood loss was 68 mL. MD GIA Potter/SONIDO /7:22 AM /5:38 PM
== END 2017-06-04 12:52 | disposition home or self-care (01) | DRG 988 ==
LOC: HSDC 14:35 → HSDI 18:14 → N07B 18:32 → N05B 05-28 12:14 → OBSVTOIN 05-28 15:50
PROVIDERS: ADMIT Otolaryngology; ATTEND Otolaryngology
PROC: 009U30Z Drainage of Spinal Canal with Drainage Device, Percutaneous Approach (ICD-10-PCS; 2017-05-28)
PROC: 09CM0ZZ Extirpation of Matter from Nasal Septum, Open Approach (ICD-10-PCS; 2017-05-28)
PROC: 09BL8ZZ Excision of Nasal Turbinate, Via Natural or Artificial Opening Endoscopic (ICD-10-PCS; principal; 2017-05-28 07:30)
DX: G97.82 Other postprocedural complications and disorders of nervous system (principal); J95.860 Postprocedural hematoma of a respiratory system organ or structure following a respiratory system procedure; G96.0 Cerebrospinal fluid leak; Y83.8 Other surgical procedures as the cause of abnormal reaction of the patient, or of later complication, without mention of misadventure at the time of the procedure; G97.1 Other reaction to spinal and lumbar puncture; Y84.4 Aspiration of fluid as the cause of abnormal reaction of the patient, or of later complication, without mention of misadventure at the time of the procedure; Z87.891 Personal history of nicotine dependence
CPT/HCPCS: 63741; 70486; 77003; 78650; 85025; 85610; 99152; 99153; A9548; C1755; G0378; J0131; J0171; J0690; J1100; J2250; J2270; J2405; J2550; J3010; J7120; J8501

== ENCOUNTER 2017-06-04 14:14 | Inpatient (IN) | payer OTHER ==
[~2017-06-04] VITALS: Ht 162.6 cm; Wt 105.0 kg
[~2017-06-04 14:14] MED LIST changes: +CEFP250T PO
[2017-06-04 14:16] VITALS: BP 138/96; PULSE 101; RESP 16; TEMP 97.6; O2SAT 95
--- NOTE | 2017-06-04 14:40 | PD ---
Physical Exam Date Seen by Provider: Jun 04, 2017 Time Seen by Provider: 14:33 Narrative Pt presents with nausea and vomiting. Pt just discharged from the hospital. Pt states she was diagnosed with a CSF leak that she sustained during an elective intranasal procedure for a deviated septum. She states she is vomiting up blood. She states she was told to go home and lay down to help it heal, she went to the ENT in [place] after discharge. She went to Dr. Bunn today. Dr. Bunn told her to go home and lay down as well. Data Data Last Documented VS Vital Signs Date Time Temp Pulse Resp B/P Pulse Ox O2 Delivery O2 Flow Rate FiO2 06/04/17 14:16 97.6 101 16 138/96 95 MDM Supervised Visit with FUAD: Roxane Bustos Jun 04, 2017 14:40
[2017-06-04] MEDS ORDERED: ONDANSETRON HCL 4 MG/2 ML VIAL IV PUSH ONE (14:45)
[2017-06-04 15:00] VITALS: BP 124/77; PULSE 87; RESP 16; O2SAT 99
[2017-06-04] MEDS ORDERED: SODIUM CHLOR 0.9% 1000 ML INJ 1,000 ML IV SCH (15:00)
[2017-06-04] MEDS ORDERED: SODIUM CHLORIDE 0.9% FLUSH 10 ML FLUSH IVF PRN (15:00)
--- NOTE | 2017-06-04 15:00 | PD ---
HPI Chief Complaint: GI Complaint Time Seen by Provider: 15:00 Travel History International Travel<30 days: No Contact w/Intl Traveler<30days: No Traveled to known affect area: No History of Present Illness HPI 27-year-old female with history of sinus disease, asthma, deviated septum with recent sesptoplasty by Dr. Bunn on May 26 and subsequently developed a CSF leak, presents to the emergency department for intractable vomiting. Patient was discharged this morning following the CSF leak development. She states prior to discharge she was vomiting and dry heaving. Her nose again began to leak CSF. She states she vomited brandy red blood at one time. She reports that she was discharged to follow-up with Dr. Bunn in his office. She went to Dr. Bunn's office where she continued to dry heave and vomit. She also had an episode of brandy red stool. Her and her mother then came here to the emergency department for further evaluation. Patient reports a frontal headache , persistent and unchanged from her headache she has had over the last 10 days. She does have some slight photophobia. Patient's symptoms are alleviated by lying in a near flat position. Patient denies any fever. Denies chest tightness. No focal deficits weakness. She has no other symptoms to report. PFSH Past Medical History Hx Anticoagulant Therapy: No Arthritis: No Asthma: Yes Autoimmune Disease: No Blood Disorders: No Anxiety: Yes Depression: Yes Cancer: No Cardiovascular Problems: No Chemotherapy: No Cerebrovascular Accident: No Diabetes: No Diminished Hearing: No Endocrine: No Gastrointestinal Disorders: Yes (constipation/ hemorrhoids) Genitourinary: No Headaches: Yes Hepatitis: No Hiatal Hernia: No Immune Disorder: No Implanted Vascular Access Dvce: No Musculoskeletal: No Neurologic: Yes (CHRONIC MIGRAINES) Psychiatric: No Reproductive: No Respiratory: Yes (ASTHMA SLEEP APNE C-PAP) Immunizations Current: Yes Migraines: Yes Seizures: No Sleep Apnea: Yes Thyroid Disease: No ?: Not LMP: MAY 2017 : 0 Para: 0 Ovarian Cysts: Yes (2006) Past Surgical History Abdominal Surgery: No AICD: No Body Medical Devices: NOSE & TONGUE PIERCINGS Cardiac Surgery: No Ear Surgery: No Endocrine Surgery: No Eye Surgery: No Genitourinary Surgery: No Gynecologic Surgery: No Hysterectomy: No Joint Replacement: No Oral Surgery: Yes (FRENULECTOMY) Pacemaker: No Thoracic Surgery: Yes (BREAST REDUCTION) Tonsillectomy: Yes (ADNOIDS ALSO REMOVED) Other Surgery: Yes Social History Alcohol Use: Yes ("VERY RARE") Tobacco Use: No (QUIT 04/2015, 1 PPD prior) Substance Use: No Allergies-Medications (Allergen,Severity, Reaction): Coded Allergies: Basil (Verified Allergy, Severe, HIVES, 06/04/17) Ciprofloxacin (Verified Allergy, Severe, Hives, 06/04/17) "FELT LIKE SOMEONE WAS TEARING MY MUSCLES" Doxycycline (Unverified Allergy, Severe, Anaphylaxis, 06/04/17) Levaquin (Verified Allergy, Severe, Hives, 06/04/17) "FELT LIKE SOMEONE WAS TEARING MY MUSCLES" Macrobid (Verified Allergy, Severe, Nausea/Vomiting, 06/04/17) Pecan (Verified Allergy, Severe, Hives, 06/04/17) Zyvox (Verified Allergy, Severe, Anaphylaxis, 06/04/17) Bactrim (Verified Adverse Reaction, Mild, n/v, 06/04/17) Codeine (Verified Adverse Reaction, Mild, "I BECOME CRAZY", 06/04/17) *MDRO Multi-Drug Resistant Organism (Verified Adverse Reaction, Unknown, ) MRSA (sputum-08/22/16); MRSA (neck-08/20/16) Uncoded Allergies: PEANUT BUTTER (Allergy, Severe, Hives, 05/25/17) ALL NUTS (Allergy, Unknown, 05/27/17) Reported Meds & Prescriptions Reported Meds & Active Scripts Active Reported Lorazepam 0.5 Mg Tab 0.5 Mg PO DAILY PRN Breo Ellipta Inh (Fluticasone/Vilanterol) 100-25 Mcg/Act Inh 1 Puff INH DAILY Use daily at the same time. Ventolin Hfa 18 GM Inh (Albuterol Sulfate) 90 Mcg/Act Aer 1 Puff INH Q4H PRN Review of Systems Except as stated in HPI: all other systems reviewed are Neg Physical Exam Narrative GENERAL: Well-nourished female patient, brought in by wheelchair, dry heaving SKIN: Focused skin assessment warm/dry. Pallor HEAD: Atraumatic. Normocephalic. EYES: Pupils equal and round. No scleral icterus. No injection or drainage. ENT: No active nasal bleeding or discharge. Mucous membranes pink and moist. NECK: Trachea midline. No JVD. No nuchal rigidity. CARDIOVASCULAR: Tachycardic rate and rhythm. No murmur appreciated. RESPIRATORY: No accessory muscle use. Clear to auscultation. Breath sounds equal bilaterally. GASTROINTESTINAL: Abdomen soft, non-tender, nondistended. Hepatic and splenic margins not palpable. RECTAL EXAM: No masses or tenderness, stool is brown-red. MUSCULOSKELETAL: No obvious deformities. No clubbing. No cyanosis. No edema. NEUROLOGICAL: Awake and alert. No obvious cranial nerve deficits. Motor grossly within normal limits. Normal speech. PSYCHIATRIC: Appropriate mood and affect; insight and judgment normal. Data Data Last Documented VS Vital Signs Date Time Temp Pulse Resp B/P Pulse Ox O2 Delivery O2 Flow Rate FiO2 06/04/17 15:00 87 16 124/77 99 Room Air 06/04/17 14:16 97.6 Orders Ondansetron Inj (Zofran Inj) (06/04/17 14:45) Complete Blood Count With Diff (06/04/17 15:00) Comprehensive Metabolic Panel (06/04/17 15:00) Prothrombin Time / Inr (Pt) (06/04/17 15:00) Act Partial Throm Time (Ptt) (06/04/17 15:00) Urinalysis - C+S If Indicated (06/04/17 15:00) Type And Screen (06/04/17 15:00) Ecg Monitoring (06/04/17 15:00) Iv Access Insert/Monitor (06/04/17 15:00) Oximetry (06/04/17 15:00) Sodium Chlor 0.9% 1000 Ml Inj (Ns 1000 M (06/04/17 15:00) Sodium Chloride 0.9% Flush (Ns Flush) (06/04/17 15:00) Ct Brain W/O Iv Contrast(Rout) (06/04/17 ) Urine Culture (06/04/17 15:15) Potassium Chlor 10 Meq Premix (Kcl 10 Me (06/04/17 17:00) Ceftriaxone Inj (Rocephin Inj) (06/04/17 17:30) Admit Order (Ed Use Only) (06/04/17 17:18) Labs Laboratory Tests Test 06/04/17 06/04/17 06/04/17 15:15 15:20 15:25 Urine Color YELLOW Urine Turbidity HAZY Urine pH 6.0 Urine Specific [place] 1.022 Urine Protein TRACE mg/dL Urine Glucose (UA) NEG mg/dL Urine Ketones 40 mg/dL Urine Occult Blood LARGE Urine Nitrite NEG Urine Bilirubin NEG Urine Urobilinogen LESS THAN 2.0 MG/DL Urine Leukocyte Esterase NEG Urine RBC /hpf Urine WBC 10 /hpf Urine Squamous Epithelial 1 /hpf Cells Urine Mucus FEW /lpf Microscopic Urinalysis Comment CULTURE INDICATED White Blood Count 24.6 TH/MM3 Red Blood Count 4.71 MIL/MM3 Hemoglobin 14.1 GM/DL Hematocrit 42.8 % Mean Corpuscular Volume 90.9 FL Mean Corpuscular Hemoglobin 29.9 PG Mean Corpuscular Hemoglobin 32.9 % Concent Red Cell Distribution Width 13.8 % Platelet Count 429 TH/MM3 Mean Platelet Volume 9.3 FL Neutrophils (%) (Auto) 87.8 % Lymphocytes (%) (Auto) 7.8 % Monocytes (%) (Auto) 4.1 % Eosinophils (%) (Auto) 0.1 % Basophils (%) (Auto) 0.2 % Neutrophils # (Auto) 21.6 TH/MM3 Lymphocytes # (Auto) 1.9 TH/MM3 Monocytes # (Auto) 1.0 TH/MM3 Eosinophils # (Auto) 0.0 TH/MM3 Basophils # (Auto) 0.0 TH/MM3 CBC Comment DIFF FINAL Differential Comment Prothrombin Time 10.9 SEC Prothromb Time International 1.0 RATIO Ratio Activated Partial 24.7 SEC Thromboplast Time Sodium Level 140 MEQ/L Potassium Level 3.0 MEQ/L Chloride Level 106 MEQ/L Carbon Dioxide Level 20.9 MEQ/L Anion Gap 13 MEQ/L Blood Urea Nitrogen 15 MG/DL Creatinine 0.98 MG/DL Estimat Glomerular Filtration 67 ML/MIN Rate Random Glucose 168 MG/DL Calcium Level 9.7 MG/DL Total Bilirubin 0.4 MG/DL Aspartate Amino Transf 6 U/L (AST/SGOT) Alanine Aminotransferase 15 U/L (ALT/SGPT) Alkaline Phosphatase 70 U/L Total Protein 8.8 GM/DL Albumin 4.2 GM/DL Blood Type O POSITIVE Antibody Screen NEGATIVE MDM Medical Decision Making Medical Screen Exam Complete: Yes Emergency Medical Condition: Yes Medical Record Reviewed: Yes Differential Diagnosis CSF leak versus intracranial hemorrhage versus meningitis versus intractable vomiting versus GI bleed Narrative Course 27 year-old female brought to emergency department for evaluation of intractable vomiting. Patient is dry heaving while sitting in the emergency department. While lying flat this subsides. She is tachycardic. She is afebrile. CBC is with leukocytosis of 24.6, possibly a stress reaction versus infectious source. CMP is with hypokalemia 3.0. Repletion is started here in the emergency department. Urinalysis is hazy with 40 ketones, large occult blood, innumerable RBC, 11 WBC, few mucus. Cultures indicated. Patient states she is not currently on her menstrual cycle. Patient is also stool Hemoccult positive. I discussed the patient physician who has also reviewed the findings. Patient will be admitted for further evaluation. A call has also been placed and neurosurgeon Dr. Bach who followed the patient during her most recent hospital stay. I spoke with Dr. Ash. He requests Rocephin IV to be ordered to cover for UTI and possible source of leukocytosis. Patient was also given IV fluids. Patient will be admitted to Dr. Nur. Still waiting on return call from neurosurgeon. Diagnosis Primary Impression: Intractable vomiting Qualified Code: R11.2 - Intractable vomiting with nausea, unspecified vomiting type Additional Impressions: CSF leak from nose Hypokalemia Leukocytosis Qualified Code: D72.829 - Leukocytosis, unspecified type UTI (urinary tract infection) Qualified Code: N39.0 - Urinary tract infection with hematuria, site unspecified Stool guaiac positive Admitting Information Admitting Physician Requests: Admit Condition: Stable Nancy Wilhelm Jun 04, 2017 15:00
[2017-06-04 16:05] LABS: AUTOMATED NEUTROPHIL # 21.6 TH/MM3 (1.8-7.7); BASOPHIL % 0.2 % (0.0-2.0); EOSINOPHIL % 0.1 % (0.0-4.0); HEMATOCRIT 42.8 % (35.0-46.0); HEMO FLAGS DIFF FINAL; LYMPH % 7.8 % (9.0-44.0); LYMPHOCYTE # 1.9 TH/MM3 (1.0-4.8); MEAN CELL VOLUME 90.9 FL (80.0-100.0); MEAN CORPUSCULAR HEMOGLOBIN 29.9 PG (27.0-34.0); MEAN CORPUSCULAR HGB CONC 32.9 % (32.0-36.0); MONO % 4.1 % (0.0-8.0); NEUT % 87.8 % (16.0-70.0); PLATELET COUNT 429 TH/MM3 (150-450); RED BLOOD COUNT 4.71 MIL/MM3 (4.00-5.30); RED CELL DISTRIBUTION WIDTH 13.8 % (11.6-17.2); WHITE BLOOD COUNT 24.6 TH/MM3 (4.0-11.0)
[2017-06-04 16:07] LABS: BLOOD, URINE LARGE (NEG); COMMENT (UR) CULTURE INDICATED; CULTURE IF INDICATED CULTURE INDICATED; GLUCOSE,URINE NEG (NEG); KETONE, URINE 40 mg/dL (NEG); MUCUS URINE FEW /lpf (OCC); NITRITE,URINE NEG (NEG); SQUAMOUS EPITHELIAL CELL URINE 1 /hpf (0-5); URINE COLOR YELLOW (YELLW/STRAW)
[2017-06-04 16:12] LABS: APTT (PATIENT) 24.7 SEC (24.3-30.1); PROTHROMBIN TIME - PATIENT 10.9 SEC (9.8-11.6)
--- NOTE | 2017-06-04 16:23 | RADRPT ---
EXAM DATE/TIME: 06/04/2017 16:04 [facility] COMPARISON: No previous studies available for comparison. INDICATIONS : Headache. Post septoplasty.Vomiting hemoptyosis. RADIATION DOSE: 33.02 CTDIvol (mGy) MEDICAL HISTORY : Chronic migraines. SURGICAL HISTORY : Septoplasty, CSF leak. ENCOUNTER: Initial ACUITY: 1 day PAIN SCALE: 10/10 LOCATION: cranial TECHNIQUE: Multiple contiguous axial images were obtained of the head. Using automated exposure control and adj ustment of the mA and/or kV according to patient size, radiation dose was kept as low as reasonably a chievable to obtain optimal diagnostic quality images. DICOM format image data is available electro nically for review and comparison. FINDINGS: CEREBRUM: The ventricles are normal for age. No evidence of midline shift, mass lesion, hemorrhage or acute in farction. No extra-axial fluid collections are seen. POSTERIOR FOSSA: The cerebellum and brainstem are intact. The 4th ventricle is midline. The cerebellopontine angle i s unremarkable. EXTRACRANIAL: The visualized portion of the orbits is intact. Extensive sinus disease. SKULL: The calvaria is intact. No evidence of skull fracture. CONCLUSION: 1. Extensive sinus disease. 2. Otherwise negative. Thom Colvin MD on June 04, 2017 at 16:19 Board Certified Radiologist. This report was verified electronically.
[2017-06-04 16:34] LABS: ALT (GPT) 15 U/L (10-53); ANION GAP 13 MEQ/L (5-15); AST (GOT) 6 U/L (15-37); BICARBONATE 20.9 MEQ/L (21.0-32.0); BLOOD UREA NITROGEN 15 MG/DL (7-18); CHLORIDE 106 MEQ/L (98-107); GLOMERULAR FILTRATION RATE 67 ML/MIN (>89); SODIUM (NA) 140 MEQ/L (136-145)
[2017-06-04 16:35] LABS: ALKALINE PHOSPHATASE 70 U/L (45-117); TOTAL BILIRUBIN ADULT 0.4 MG/DL (0.2-1.0)
[2017-06-04] MEDS ORDERED: cefTRIAXone INJ 1,000 MG in SODIUM CHLORIDE 0.9% INJ 100 ML IV ONE (17:30)
[2017-06-04 18:00] VITALS: BP 112/62; PULSE 98; RESP 16; O2SAT 99
[2017-06-04] MEDS ORDERED: LACTULOSE SYRUP 20 GM/30 ML CUP PO PRN (18:00)
[2017-06-04] MEDS ORDERED: BISACODYL 10 MG SUPP RECTAL PRN (18:00)
[2017-06-04] MEDS ORDERED: ALBUTEROL SULFATE 90 MCG/ACT HFA 8 GM INHALER INH PRN (18:00)
[2017-06-04] MEDS ORDERED: NALOXONE HCL 0.4 MG/ML AMP IV PRN (18:00)
[2017-06-04] MEDS ORDERED: LORazepam 0.5 MG TAB PO PRN (18:00)
[2017-06-04] MEDS ORDERED: ACETAMINOPHEN 325 MG TAB PO PRN (18:00)
[2017-06-04] MEDS ORDERED: D5-1/2 NS + KCL 20 MEQ INJ 1,000 ML IV SCH (18:00)
[2017-06-04] MEDS ORDERED: SENNOSIDES 8.6 MG TAB PO PRN (18:00)
[2017-06-04] MEDS ORDERED: MAGNESIUM HYDROXIDE SUSP 30 ML CUP PO PRN (18:00)
[2017-06-04] MEDS: POTASSIUM CHLOR 10 MEQ PREMIX 100 ML IV SCH (18:19)
[2017-06-04] MEDS: PANTOPRAZOLE SODIUM 40 MG VIAL IV PUSH SCH (18:59)
[2017-06-04] MEDS ORDERED: ACETAMINOPHEN/HYDROcodone 325 MG/5 MG TAB PO ONE (19:00)
[2017-06-04 19:31] VITALS: BP 118/63; PULSE 84; RESP 16; TEMP 98.4; O2SAT 99
--- NOTE | 2017-06-04 21:01 | PD.CONS ---
History of Present Illness Service Neurosurgery Consult Requested By Emergency room physician Reason for Consult Spinal fluid leak Primary Care Physician Silviano Munguia MD Diagnoses: History of Present Illness Ms. Felix is a 27-year-old female who previously underwent open repair nasal septal fracture with bilateral submucosal resection inferior turbinates and bilateral endoscopic excision of solomon bullosa on 05/25/2017 for treatment of nasal airway obstruction and septal deviation with chronic sinus headache. Postoperatively she developed headache, nausea, vomiting, blurred vision. She returned to the operating room on 05/28/17 4 postoperative debridement of the nose and sinuses, drainage of septal hematoma. There was no sign of CSF leakage from the site of surgery noted with Valsalva maneuver during the procedure. Patient complained of persistent CSF leak, headaches, nausea again postoperatively. She underwent placement of a lumbar subarachnoid drain on which remained in place until approximately 06/03/17. A metrizamide and nucleotide study was done with injection through the subarachnoid drain on 06/02/17 with minimal tracer activity at the right superior posterior pledget and no definite contrast noted on post injection CT scan of the sinuses. The drain was removed and she was discharged home earlier today with follow-up in the ENT clinic. Due to persistent nausea vomiting and nasal drainage she returned back to the emergency room this afternoon. No complaint fevers chills. Patient does give a history of significant nasal fluid leakage following a dental extraction which she states was repaired per oral maxillofacial surgery as an outpatient. Review of Systems Constitutional: DENIES: Fatigue, Fever Eyes: COMPLAINS OF: Blurred vision, Photosensitivity, DENIES: Diplopia Ears, nose, mouth, throat: COMPLAINS OF: Nasal discharge, DENIES: Hearing loss , Throat pain Respiratory: DENIES: Cough, Shortness of breath Cardiovascular: DENIES: Palpitations Gastrointestinal: COMPLAINS OF: Nausea, Vomiting, DENIES: Abdominal pain Genitourinary: DENIES: Urinary incontinence Musculoskeletal: DENIES: Joint pain Hematologic/lymphatic: DENIES: Bruising Neurologic: COMPLAINS OF: Headache Psychiatric: DENIES: Anxiety, Confusion Past Family Social History Allergies: Coded Allergies: Basil (Verified Allergy, Severe, HIVES, 06/04/17) Ciprofloxacin (Verified Allergy, Severe, Hives, 06/04/17) "FELT LIKE SOMEONE WAS TEARING MY MUSCLES" Doxycycline (Unverified Allergy, Severe, Anaphylaxis, 06/04/17) Levaquin (Verified Allergy, Severe, Hives, 06/04/17) "FELT LIKE SOMEONE WAS TEARING MY MUSCLES" Macrobid (Verified Allergy, Severe, Nausea/Vomiting, 06/04/17) Pecan (Verified Allergy, Severe, Hives, 06/04/17) Zyvox (Verified Allergy, Severe, Anaphylaxis, 06/04/17) Bactrim (Verified Adverse Reaction, Mild, n/v, 06/04/17) Codeine (Verified Adverse Reaction, Mild, "I BECOME CRAZY", 06/04/17) *MDRO Multi-Drug Resistant Organism (Verified Adverse Reaction, Unknown, ) MRSA (sputum-08/22/16); MRSA (neck-08/20/16) Uncoded Allergies: PEANUT BUTTER (Allergy, Severe, Hives, 05/25/17) ALL NUTS (Allergy, Unknown, 05/27/17) Past Medical History Chronic sinusitis. No cardiac or pulmonary disease Past Surgical History Surgical procedures noted above. Colonoscopy Reported Medications Reported Meds & Active Scripts Active Reported Lorazepam 0.5 Mg Tab 0.5 Mg PO DAILY PRN Breo Ellipta Inh (Fluticasone/Vilanterol) 100-25 Mcg/Act Inh 1 Puff INH DAILY Use daily at the same time. Ventolin Hfa 18 GM Inh (Albuterol Sulfate) 90 Mcg/Act Aer 1 Puff INH Q4H PRN Social History Previously smoked cigarettes No significant alcohol use Physical Exam Vital Signs Vital Signs Date Time Temp Pulse Resp B/P Pulse Ox O2 Delivery O2 Flow Rate FiO2 06/04/17 20:25 16 06/04/17 19:31 98.4 84 16 118/63 99 Room Air 06/04/17 18:00 98 16 112/62 99 Room Air 06/04/17 15:00 87 16 124/77 99 Room Air 06/04/17 15:00 99 Room Air 06/04/17 14:16 97.6 101 16 138/96 95 Physical Exam GENERAL: This is a well-nourished, well-developed patient, in no apparent distress. SKIN: No rashes, ecchymoses or lesions. Cool and dry. HEAD: Atraumatic. Normocephalic. No temporal or scalp tenderness. EYES: Sclerae are clear and nonicteric. ENT: No nasal drainage. No septal hematoma. No periorbital edema or ecchymosis. Tympanic membrane on the right with significant cerumen. No CSF otorrhea. NECK: Trachea midline. No JVD or lymphadenopathy. Supple, nontender, no meningeal signs. CARDIOVASCULAR: Pulse regular RESPIRATORY: Clear, nonlabored GASTROINTESTINAL: Abdomen soft, non-tender MUSCULOSKELETAL: No edema noted NEUROLOGICAL: Awake and alert Oriented X 3 Speech is clear Conversant and appropriate Follow simple commands well Answers questions appropriately Reasonable judgment and insight Recent and remote memory are intact No evidence of anxiety or depression Pupils are equal and reactive to accommodation. Extra-ocular movements, visual harper to confrontation, facial sensorimotor, tongue, palate, sternocleidomastoid testing, hearing to finger rub testing, and bilateral shoulder shrug are all intact. Sensation is intact to light touch in all extremities Strength normal major flexion and extension groups all extremities Arcelia's absent bilaterally No ankle clonus Plantar responses absent bilateral Fine motor movements intact upper extremities Laboratory Laboratory Tests Test 06/04/17 06/04/17 06/04/17 15:15 15:20 15:25 Urine Color YELLOW Urine Turbidity HAZY Urine pH 6.0 Urine Specific [place] 1.022 Urine Protein TRACE Urine Glucose (UA) NEG Urine Ketones 40 Urine Occult Blood LARGE Urine Nitrite NEG Urine Bilirubin NEG Urine Urobilinogen LESS THAN 2.0 Urine Leukocyte Esterase NEG Urine RBC Urine WBC 10 Urine Squamous Epithelial 1 Cells Urine Mucus FEW Microscopic Urinalysis Comment CULTURE INDICATED White Blood Count 24.6 Red Blood Count 4.71 Hemoglobin 14.1 Hematocrit 42.8 Mean Corpuscular Volume 90.9 Mean Corpuscular Hemoglobin 29.9 Mean Corpuscular Hemoglobin 32.9 Concent Red Cell Distribution Width 13.8 Platelet Count 429 Mean Platelet Volume 9.3 Neutrophils (%) (Auto) 87.8 Lymphocytes (%) (Auto) 7.8 Monocytes (%) (Auto) 4.1 Eosinophils (%) (Auto) 0.1 Basophils (%) (Auto) 0.2 Neutrophils # (Auto) 21.6 Lymphocytes # (Auto) 1.9 Monocytes # (Auto) 1.0 Eosinophils # (Auto) 0.0 Basophils # (Auto) 0.0 CBC Comment DIFF FINAL Differential Comment Prothrombin Time 10.9 Prothromb Time International 1.0 Ratio Activated Partial 24.7 Thromboplast Time Sodium Level 140 Potassium Level 3.0 Chloride Level 106 Carbon Dioxide Level 20.9 Anion Gap 13 Blood Urea Nitrogen 15 Creatinine 0.98 Estimat Glomerular Filtration 67 Rate Random Glucose 168 Calcium Level 9.7 Total Bilirubin 0.4 Aspartate Amino Transf 6 (AST/SGOT) Alanine Aminotransferase 15 (ALT/SGPT) Alkaline Phosphatase 70 Total Protein 8.8 Albumin 4.2 Blood Type O POSITIVE Antibody Screen NEGATIVE Date/Time Procedure Status Source Growth 06/04/17 15:15 Urine Culture Received Urine Clean Catch Pending Result Diagram: 06/04/17 1520 06/04/17 [address] scan of the head images reviewed by the undersigned. No evidence of intracranial hemorrhage, edema, pneumocephalus or hydrocephalus. Head CT 06/04/17 0000 Signed Impressions: Service Date/Time: Sunday, June 04, 2017 16:04 - CONCLUSION: 1. Extensive sinus disease. 2. Otherwise negative. Thom Colvin MD Assessment and Plan Assessment and Plan Impression: 1. Symptoms suggestive of persistent CSF leak Plan: Findings were discussed with the patient and her family in the emergency room She will continue flat bedrest for now She has had a subarachnoid drain in for approximately a week and still has symptoms of CSF leak. She may need to repeat the nucleotide pledget and intrathecal contrast study with more precise pledget placement and additional contrast with post injection CT scan of the sinuses performed with the patient prone to try to initiate any CSF leakage during the procedure. For the weekend, she will remain in the hospital since she has persistent significant nausea and emesis and headache if she tries to mobilize out of bed. Aleks Olivares MD Jun 04, 2017 21:01
--- NOTE | 2017-06-04 21:24 | HHI.HP ---
HPI Service [facility] Primary Care Physician Silviano Munguia MD Admission Diagnosis intractable vomiting; leukocytosis; hypokalemia; recurrent csf leak; Chief Complaint: intractable vomiting Travel History International Travel<30 Days: No Contact w/Intl Traveler <30 Da: No Traveled to Known Affected Are: No History of Present Illness 27-year-old female with history of sinus disease, asthma, deviated septum with recent septoplasty by Dr. Bunn on May 26 and subsequently developed a CSF leak, presents to the emergency department for intractable vomiting. Patient was discharged this morning following the CSF leak development.She underwent placement of a lumbar subarachnoid drain on 05/28/[address] until approximately 06/03/17. A metrizamide and nucleotide study was done with injection through the subarachnoid drain on 06/02/17 with minimal tracer activity at the right superior posterior pledget and no definite contrast noted on post injection CT scan of the sinuse She states prior to discharge she was vomiting and dry heaving. Her nose again began to leak CSF. She states she vomited brandy red blood at one time. She reports that she was discharged to follow-up with Dr. Bunn in his office. She went to Dr. Bunn's office where she continued to dry heave and vomit. She also had an episode of brandy red stool. Her and her mother then came here to the emergency department for further evaluation. Patient reports a frontal headache, persistent and unchanged from her headache she has had over the last 10 days. She does have some slight photophobia. Patient's symptoms are alleviated by lying in a near flat position. Patient denies any fever. Denies chest tightness. No focal deficits weakness. She has no other symptoms to report. Patient will be seen by neurosurgery and will admit with their plan also note patient has UTI will start on rocephin and did have some blood per rectum will follow up cbc does have hx hemorrhoids. Review of Systems Ears, nose, mouth, throat: COMPLAINS OF: Nasal discharge Gastrointestinal: COMPLAINS OF: Vomiting Neurologic: COMPLAINS OF: Headache Past Family Social History Past Medical History asthma,migraines,sleep apnea,hemorrhoid Past Surgical History oral surgery sinus surgery,breast reduction,adenoids Reported Medications breo lorazepam,ventolin Allergies: Coded Allergies: Basil (Verified Allergy, Severe, HIVES, 06/04/17) Ciprofloxacin (Verified Allergy, Severe, Hives, 06/04/17) "FELT LIKE SOMEONE WAS TEARING MY MUSCLES" Doxycycline (Unverified Allergy, Severe, Anaphylaxis, 06/04/17) Levaquin (Verified Allergy, Severe, Hives, 06/04/17) "FELT LIKE SOMEONE WAS TEARING MY MUSCLES" Macrobid (Verified Allergy, Severe, Nausea/Vomiting, 06/04/17) Pecan (Verified Allergy, Severe, Hives, 06/04/17) Zyvox (Verified Allergy, Severe, Anaphylaxis, 06/04/17) Bactrim (Verified Adverse Reaction, Mild, n/v, 06/04/17) Codeine (Verified Adverse Reaction, Mild, "I BECOME CRAZY", 06/04/17) *MDRO Multi-Drug Resistant Organism (Verified Adverse Reaction, Unknown, ) MRSA (sputum-08/22/16); MRSA (neck-08/20/16) Uncoded Allergies: PEANUT BUTTER (Allergy, Severe, Hives, 05/25/17) ALL NUTS (Allergy, Unknown, 05/27/17) Social History former smoker Physical Exam Vital Signs Vital Signs Date Time Temp Pulse Resp B/P Pulse Ox O2 Delivery O2 Flow Rate FiO2 06/04/17 20:25 16 06/04/17 19:31 98.4 84 16 118/63 99 Room Air 06/04/17 18:00 98 16 112/62 99 Room Air 06/04/17 15:00 87 16 124/77 99 Room Air 06/04/17 15:00 99 Room Air 06/04/17 14:16 97.6 101 16 138/96 95 Physical Exam GENERAL: This is a well-nourished, well-developed patient, in no apparent distress. SKIN: No rashes, ecchymoses or lesions. Cool and dry. HEAD: Atraumatic. Normocephalic. No temporal or scalp tenderness. EYES: Pupils equal round and reactive. Extraocular motions intact. No scleral icterus. No injection or drainage. ENT: Nose without bleeding, purulent drainage or septal hematoma. Throat without erythema, tonsillar hypertrophy or exudate. Uvula midline. Airway patent. NECK: Trachea midline. No JVD or lymphadenopathy. Supple, nontender, no meningeal signs. CARDIOVASCULAR: Regular rate and rhythm without murmurs, gallops, or rubs. RESPIRATORY: Clear to auscultation. Breath sounds equal bilaterally. No wheezes , rales, or rhonchi. GASTROINTESTINAL: Abdomen soft, non-tender, nondistended. No hepato-splenomegaly , or palpable masses. No guarding. MUSCULOSKELETAL: Extremities without clubbing, cyanosis, or edema. No joint tenderness, effusion, or edema noted. No calf tenderness. Negative Homans sign bilaterally. NEUROLOGICAL: Awake and alert. Cranial nerves II through XII intact. Motor and sensory grossly within normal limits. Five out of 5 muscle strength in all muscle groups. Normal speech. Laboratory Laboratory Tests Test 06/04/17 06/04/17 06/04/17 15:15 15:20 15:25 Urine Color YELLOW Urine Turbidity HAZY Urine pH 6.0 Urine Specific [place] 1.022 Urine Protein TRACE Urine Glucose (UA) NEG Urine Ketones 40 Urine Occult Blood LARGE Urine Nitrite NEG Urine Bilirubin NEG Urine Urobilinogen LESS THAN 2.0 Urine Leukocyte Esterase NEG Urine RBC Urine WBC 10 Urine Squamous Epithelial 1 Cells Urine Mucus FEW Microscopic Urinalysis Comment CULTURE INDICATED White Blood Count 24.6 Red Blood Count 4.71 Hemoglobin 14.1 Hematocrit 42.8 Mean Corpuscular Volume 90.9 Mean Corpuscular Hemoglobin 29.9 Mean Corpuscular Hemoglobin 32.9 Concent Red Cell Distribution Width 13.8 Platelet Count 429 Mean Platelet Volume 9.3 Neutrophils (%) (Auto) 87.8 Lymphocytes (%) (Auto) 7.8 Monocytes (%) (Auto) 4.1 Eosinophils (%) (Auto) 0.1 Basophils (%) (Auto) 0.2 Neutrophils # (Auto) 21.6 Lymphocytes # (Auto) 1.9 Monocytes # (Auto) 1.0 Eosinophils # (Auto) 0.0 Basophils # (Auto) 0.0 CBC Comment DIFF FINAL Differential Comment Prothrombin Time 10.9 Prothromb Time International 1.0 Ratio Activated Partial 24.7 Thromboplast Time Sodium Level 140 Potassium Level 3.0 Chloride Level 106 Carbon Dioxide Level 20.9 Anion Gap 13 Blood Urea Nitrogen 15 Creatinine 0.98 Estimat Glomerular Filtration 67 Rate Random Glucose 168 Calcium Level 9.7 Total Bilirubin 0.4 Aspartate Amino Transf 6 (AST/SGOT) Alanine Aminotransferase 15 (ALT/SGPT) Alkaline Phosphatase 70 Total Protein 8.8 Albumin 4.2 Blood Type O POSITIVE Antibody Screen NEGATIVE Date/Time Procedure Status Source Growth 06/04/17 15:15 Urine Culture Received Urine Clean Catch Pending Result Diagram: 06/04/17 1520 06/04/17 1520 Imaging Last [address] 06/04/17 0000 Signed Impressions: Service Date/Time: Sunday, June 04, 2017 16:04 - CONCLUSION: 1. Extensive sinus disease. 2. Otherwise negative. Thom Colvin MD Course in er given iv rocephin Assessment and Plan Problem List: (1) CSF leak from nose Status: Acute Plan: plan as per neurosurgery consult tonight (2) Intractable vomiting Status: Acute Plan: continue zofran iv fluid (3) UTI (urinary tract infection) Status: Acute Plan: start rocephin IV (4) Stool guaiac positive Status: Acute Plan: will follow cbc ,protonix iv (5) Leukocytosis Status: Acute Plan: probably related to both UTI and CSF leak Assessment and Plan further plan as case develops Code Status full Discussed Condition With patient Physician Certification 2 Midnight Certification Type: Admission for Inpatient Services Order for Inpatient Services The services are ordered in accordance with Medicare regulations or non- Medicare payer requirements, as applicable. In the case of services not specified as inpatient-only, they are appropriately provided as inpatient services in accordance with the 2-midnight benchmark. Estimated LOS (days): 3 3 days is the estimated time the patient will need to remain in the hospital, assuming treatment plan goals are met and no additional complications. Post-Hospital Plan: Not yet determined Problem Qualifiers (1) Intractable vomiting: Qualified Code: R11.2 - Intractable vomiting with nausea, unspecified vomiting type (2) UTI (urinary tract infection): Qualified Code: N39.0 - Urinary tract infection with hematuria, site unspecified (3) Leukocytosis: Qualified Code: D72.829 - Leukocytosis, unspecified type Carlitos Sosa MD Jun 04, 2017 21:23
[2017-06-04 21:38] VITALS: BP 122/61
[2017-06-04] MEDS ORDERED: FLUCONAZOLE 100 MG TAB PO ONE (21:45)
[2017-06-04 22:00] VITALS: BP 104/64; PULSE 92; RESP 18; TEMP 98.2; O2SAT 96
[2017-06-04] MEDS: SODIUM CHLORIDE 0.9% FLUSH 10 ML FLUSH IV FLUSH SCH (22:12)
[2017-06-04] MEDS: DOCUSATE SODIUM 50 MG/SENNA 8.6 MG TAB PO SCH (22:12)
[2017-06-05] VITALS: BP 96/58; PULSE 85; RESP 18; TEMP 98.5; O2SAT 98
[2017-06-05] MEDS: POTASSIUM CHLOR 10 MEQ PREMIX 100 ML IV SCH ×2 (00:10→03:26)
[2017-06-05 04:00] VITALS: BP 115/67; PULSE 80; RESP 18; TEMP 98.1; O2SAT 97
[2017-06-05 08:00] VITALS: BP 121/73; PULSE 87; RESP 20; TEMP 98.5; O2SAT 96
[2017-06-05 08:31] LABS: AUTOMATED NEUTROPHIL # 6.1 TH/MM3 (1.8-7.7); BASOPHIL % 0.2 % (0.0-2.0); EOSINOPHIL # 0.1 TH/MM3 (0-0.4); EOSINOPHIL % 0.7 % (0.0-4.0); HEMATOCRIT 32.3 % (35.0-46.0); HEMO FLAGS DIFF FINAL; LYMPH % 19.8 % (9.0-44.0); LYMPHOCYTE # 1.7 TH/MM3 (1.0-4.8); MEAN CELL VOLUME 90.5 FL (80.0-100.0); MEAN CORPUSCULAR HEMOGLOBIN 30.1 PG (27.0-34.0); MEAN CORPUSCULAR HGB CONC 33.3 % (32.0-36.0); MONO % 6.4 % (0.0-8.0); NEUT % 72.9 % (16.0-70.0); PLATELET COUNT 238 TH/MM3 (150-450); RED BLOOD COUNT 3.57 MIL/MM3 (4.00-5.30); RED CELL DISTRIBUTION WIDTH 13.7 % (11.6-17.2); WHITE BLOOD COUNT 8.4 TH/MM3 (4.0-11.0)
[2017-06-05] MEDS: DOCUSATE SODIUM 50 MG/SENNA 8.6 MG TAB PO SCH ×2 (08:36→20:44)
[2017-06-05] MEDS: FLUCONAZOLE 100 MG TAB PO SCH (08:36)
[2017-06-05] MEDS: LACTOBACILLUS ACIDOPHILUS TAB PO SCH ×2 (08:36→20:43)
[2017-06-05 08:55] LABS: ANION GAP 9 MEQ/L (5-15); AST (GOT) 7 U/L (15-37); BICARBONATE 18.9 MEQ/L (21.0-32.0); BLOOD UREA NITROGEN 9 MG/DL (7-18); CHLORIDE 115 MEQ/L (98-107); GLOMERULAR FILTRATION RATE 116 ML/MIN (>89); POTASSIUM 3.4 MEQ/L (3.5-5.1); SODIUM (NA) 143 MEQ/L (136-145)
[2017-06-05 09:04] LABS: ALKALINE PHOSPHATASE 46 U/L (45-117); ALT (GPT) 11 U/L (10-53); TOTAL BILIRUBIN ADULT 0.3 MG/DL (0.2-1.0)
--- NOTE | 2017-06-05 10:37 | HHI.PR ---
Subjective Remarks c/o alot of secretion in post pharynx. Objective Vitals heart reg lung cta abd s/nt ext no edema Vital Signs Date Time Temp Pulse Resp B/P Pulse Ox O2 Delivery O2 Flow Rate FiO2 06/05/17 08:00 98.5 87 20 121/73 96 06/05/17 04:00 98.1 80 18 115/67 97 06/05/17 00:00 98.5 85 18 96/58 98 06/04/17 22:00 98.2 92 18 104/64 96 06/04/17 21:38 72 16 122/61 99 06/04/17 20:25 16 06/04/17 19:31 98.4 84 16 118/63 99 Room Air 06/04/17 18:00 98 16 112/62 99 Room Air 06/04/17 15:00 87 16 124/77 99 Room Air 06/04/17 15:00 99 Room Air 06/04/17 14:16 97.6 101 16 138/96 95 Result Diagram: 06/05/17 0726 06/05/17 0726 Imaging Last [address] 06/04/17 0000 Signed Impressions: Service Date/Time: Sunday, June 04, 2017 16:04 - CONCLUSION: 1. Extensive sinus disease. 2. Otherwise negative. Thom Colvin MD A/P Problem List: (1) CSF leak from nose Status: Acute Plan: 05/25/17..open repair nasal septal fracture with bilateral submucosal resection inferior turbinates and bilateral endoscopic excision of solomon bullosa onfor treatment of nasal airway obstruction and septal deviation with chronic sinus headache. 05/28/17 debridement of the nose and sinuses, drainage of septal hematoma. There was no sign of CSF leakage from the site of surgery noted with Valsalva maneuver during the procedure. 05/28/17 Lumbar subarachnoid drain on 05/28/[address] until approximately 06/03/17. 06/02/17 metrizamide and nucleotide study was done with injection through the subarachnoid drain with minimal tracer activity at the right superior posterior pledget and no definite contrast noted on post injection CT scan of the sinuses. She was discharged home 06/04 and then returned to ED with persistent csf leak with n/v Followed by Dr Marshall baker over weekend ivf. resume diet prn nauea meds prn pain meds. pt has saline and afrin for sx's Possible repeat of nucleotide pledget and intrathecal study on Wednesday or Wednesday (2) UTI (urinary tract infection) Status: Acute Plan: on abx. f/u cx Problem Qualifiers (1) UTI (urinary tract infection): Qualified Code: N39.0 - Urinary tract infection with hematuria, site unspecified Samir Raymond MD Jun 05, 2017 10:37 Physical Exam GENERAL: This is a well-nourished, well-developed patient, in no apparent distress. SKIN: No rashes, ecchymoses or lesions. Cool and dry. HEAD: Atraumatic. Normocephalic. No temporal or scalp tenderness. EYES: Sclerae are clear and nonicteric. ENT: No nasal drainage. No septal hematoma. No periorbital edema or ecchymosis. Tympanic membrane on the right with significant cerumen. No CSF otorrhea. NECK: Trachea midline. No JVD or lymphadenopathy. Supple, nontender, no meningeal signs. CARDIOVASCULAR: Pulse regular RESPIRATORY: Clear, nonlabored GASTROINTESTINAL: Abdomen soft, non-tender MUSCULOSKELETAL: No edema noted NEUROLOGICAL: Awake and alert Oriented X 3 Speech is clear Conversant and appropriate Follow simple commands well Answers questions appropriately Reasonable judgment and insight Recent and remote memory are intact No evidence of anxiety or depression Pupils are equal and reactive to accommodation. Extra-ocular movements, visual harper to confrontation, facial sensorimotor, tongue, palate, sternocleidomastoid testing, hearing to finger rub testing, and bilateral shoulder shrug are all intact. Sensation is intact to light touch in all extremities Strength normal major flexion and extension groups all extremities Followed by Dr Olivares observe over weekend ivf. resume diet prn nauea meds prn pain meds. pt has saline and afrin for sx's Possible repeat of nucleotide pledget and intrathecal study on Wednesday or Wednesday (2) UTI (urinary tract infection) Status: Acute Plan: on abx. f/u cx Problem Qualifiers (1) UTI (urinary tract infection): Qualified Code: N39.0 - Urinary tract infection with hematuria, site unspecified Samir Raymond MD Jun 05, 2017 10:37
[2017-06-05 11:47] VITALS: BP 138/84; PULSE 89; RESP 20; TEMP 98.6; O2SAT 98
[2017-06-05] MEDS: ONDANSETRON HCL 4 MG/2 ML VIAL IVP PRN (11:52)
[2017-06-05] MEDS: ACETAMINOPHEN/HYDROcodone 325 MG/5 MG TAB PO PRN ×3 (11:52→23:01)
[2017-06-05] MEDS: NS + KCL 20 MEQ INJ 1,000 ML IV SCH ×2 (13:18→21:48)
--- NOTE | 2017-06-05 14:25 | HHI.NSPN ---
History Chief Complaint: headache and nausea Interval History Ms. Felix is a 27-year-old female who previously underwent open repair nasal septal fracture with bilateral submucosal resection inferior turbinates and bilateral endoscopic excision of solomon bullosa on 05/25/2017 for treatment of nasal airway obstruction and septal deviation with chronic sinus headache. Postoperatively she developed headache, nausea, vomiting, blurred vision. She returned to the operating room on 05/28/17 4 postoperative debridement of the nose and sinuses, drainage of septal hematoma. There was no sign of CSF leakage from the site of surgery noted with Valsalva maneuver during the procedure. Patient complained of persistent CSF leak, headaches, nausea again postoperatively. She underwent placement of a lumbar subarachnoid drain on which remained in place until approximately 06/03/17. A metrizamide and nucleotide study was done with injection through the subarachnoid drain on 06/02/17 with minimal tracer activity at the right superior posterior pledget and no definite contrast noted on post injection CT scan of the sinuses. The drain was removed and she was discharged home earlier today with follow-up in the ENT clinic. Due to persistent nausea vomiting and nasal drainage she returned back to the emergency room this afternoon. No complaint fevers chills. Patient does give a history of significant nasal fluid leakage following a dental extraction which she states was repaired per oral maxillofacial surgery as an outpatient. 06/05/2017: Remains at bedrest. Feel some drainage on the back of her throat, occasional cough. No complaint of fever, chills. No nausea resolved as long as she stays mostly flat in bed. When she gets up to the bathroom, she feels the headache started to return. She is tolerating diet. Exam Results Vital Signs Date Time Temp Pulse Resp B/P Pulse Ox O2 Delivery O2 Flow Rate FiO2 06/05/17 11:47 98.6 89 20 138/84 98 06/04/17 19:31 Room Air Physical Examination Respirations clear to auscultation No nuchal rigidity No facial edema or ecchymosis No obvious CSF otorrhea or rhinorrhea Awake alert oriented conversant and appropriate Appears comfortable with head of bed mildly elevated Extraocular movements and visual harper to confrontation as well as bilateral hearing to finger rub are all intact. Lab, Micro, Other Results Laboratory Tests Test 06/04/17 06/04/17 06/04/17 06/05/17 15:15 15:20 15:25 07:26 Urine Color YELLOW Urine Turbidity HAZY Urine pH 6.0 Urine Specific Macy 1.022 Urine Protein TRACE mg/dL Urine Glucose (UA) NEG mg/dL Urine Ketones 40 mg/dL Urine Occult Blood LARGE Urine Nitrite NEG Urine Bilirubin NEG Urine Urobilinogen LESS THAN 2.0 MG/DL Urine Leukocyte Esterase NEG Urine RBC /hpf Urine WBC 10 /hpf Urine Squamous Epithelial 1 /hpf Cells Urine Mucus FEW /lpf Microscopic Urinalysis Comment CULTURE INDICATED White Blood Count 24.6 TH/MM3 8.4 TH/MM3 Red Blood Count 4.71 MIL/MM3 3.57 MIL/MM3 Hemoglobin 14.1 GM/DL 10.7 GM/DL Hematocrit 42.8 % 32.3 % Mean Corpuscular Volume 90.9 FL 90.5 FL Mean Corpuscular Hemoglobin 29.9 PG 30.1 PG Mean Corpuscular Hemoglobin 32.9 % 33.3 % Concent Red Cell Distribution Width 13.8 % 13.7 % Platelet Count 429 TH/MM3 238 TH/MM3 Mean Platelet Volume 9.3 FL 9.1 FL Neutrophils (%) (Auto) 87.8 % 72.9 % Lymphocytes (%) (Auto) 7.8 % 19.8 % Monocytes (%) (Auto) 4.1 % 6.4 % Eosinophils (%) (Auto) 0.1 % 0.7 % Basophils (%) (Auto) 0.2 % 0.2 % Neutrophils # (Auto) 21.6 TH/MM3 6.1 TH/MM3 Lymphocytes # (Auto) 1.9 TH/MM3 1.7 TH/MM3 Monocytes # (Auto) 1.0 TH/MM3 0.5 TH/MM3 Eosinophils # (Auto) 0.0 TH/MM3 0.1 TH/MM3 Basophils # (Auto) 0.0 TH/MM3 0.0 TH/MM3 CBC Comment DIFF FINAL DIFF FINAL Differential Comment Prothrombin Time 10.9 SEC Prothromb Time International 1.0 RATIO Ratio Activated Partial 24.7 SEC Thromboplast Time Sodium Level 140 MEQ/L 143 MEQ/L Potassium Level 3.0 MEQ/L 3.4 MEQ/L Chloride Level 106 MEQ/L 115 MEQ/L Carbon Dioxide Level 20.9 MEQ/L 18.9 MEQ/L Anion Gap 13 MEQ/L 9 MEQ/L Blood Urea Nitrogen 15 MG/DL 9 MG/DL Creatinine 0.98 MG/DL 0.61 MG/DL Estimat Glomerular Filtration 67 ML/MIN 116 ML/MIN Rate Random Glucose 168 MG/DL 88 MG/DL Calcium Level 9.7 MG/DL 8.0 MG/DL Total Bilirubin 0.4 MG/DL 0.3 MG/DL Aspartate Amino Transf 6 U/L 7 U/L (AST/SGOT) Alanine Aminotransferase 15 U/L 11 U/L (ALT/SGPT) Alkaline Phosphatase 70 U/L 46 U/L Total Protein 8.8 GM/DL 6.3 GM/DL Albumin 4.2 GM/DL 2.8 GM/DL Blood Type O POSITIVE Antibody Screen NEGATIVE Medical Decision Making Impression and Plan Impression: 1. Symptoms consistent with persistent CSF leak post ENT surgical procedure. Plan: Patient will remain at bedrest over the weekend. Discuss with on Wednesday. She will tentatively be rescheduled for a repeat nucleotide pledget study and metrizamide intrathecal contrast study with thin cut CT through the frontal skull base if persistent signs of CSF leakage. Aleks Olivares MD Jun 05, 2017 14:25
[2017-06-05 16:00] VITALS: BP 130/61; PULSE 92; RESP 17; TEMP 98.4; O2SAT 98
[2017-06-05] MEDS: PANTOPRAZOLE SODIUM 40 MG VIAL IV PUSH SCH (17:52)
[2017-06-05] MEDS: cefTRIAXone INJ 1,000 MG in SODIUM CHLORIDE 0.9% INJ 100 ML IV SCH (17:52)
[2017-06-05] MEDS: SODIUM CHLORIDE 0.9% FLUSH 10 ML FLUSH IV FLUSH SCH ×2 (17:53→20:43)
[2017-06-05 20:00] VITALS: BP 116/66; PULSE 98; RESP 18; TEMP 98; O2SAT 98
[2017-06-06] VITALS: BP 105/64; PULSE 85; RESP 16; TEMP 98.6; O2SAT 98
[2017-06-06 04:00] VITALS: BP 110/61; PULSE 78; RESP 16; TEMP 98.4; O2SAT 98
[2017-06-06 08:00] VITALS: BP 108/63; PULSE 86; RESP 16; TEMP 97.8; O2SAT 97
[2017-06-06] MEDS: ACETAMINOPHEN/HYDROcodone 325 MG/5 MG TAB PO PRN ×3 (08:13→20:26)
[2017-06-06] MEDS: FLUCONAZOLE 100 MG TAB PO SCH (08:13)
[2017-06-06] MEDS: FLUTICASONE 100 MCG/VILANTEROL 25 MCG INHALER INH SCH (08:13)
[2017-06-06] MEDS: SODIUM CHLORIDE 0.9% FLUSH 10 ML FLUSH IV FLUSH SCH ×2 (08:13→20:26)
[2017-06-06] MEDS: ONDANSETRON HCL 4 MG/2 ML VIAL IVP PRN ×3 (08:13→20:30)
[2017-06-06] MEDS: DOCUSATE SODIUM 50 MG/SENNA 8.6 MG TAB PO SCH ×2 (08:13→20:26)
[2017-06-06] MEDS: LACTOBACILLUS ACIDOPHILUS TAB PO SCH ×2 (08:13→20:26)
[2017-06-06] MEDS: NS + KCL 20 MEQ INJ 1,000 ML IV SCH (08:14)
--- NOTE | 2017-06-06 09:38 | HHI.PR ---
Subjective Remarks still has cough and feeling of congestion in post pharynx. now ears feels congested. Objective Vitals heart reg lung few course bs right base abd s/nt ext no edema Vital Signs Date Time Temp Pulse Resp B/P Pulse Ox O2 Delivery O2 Flow Rate FiO2 06/06/17 08:00 97.8 86 16 108/63 97 06/06/17 04:00 98.4 78 16 110/61 98 06/06/17 00:00 98.6 85 16 105/64 98 06/05/17 20:00 98.0 98 18 116/66 98 06/05/17 16:00 98.4 92 17 130/61 98 06/05/17 13:00 16 06/05/17 11:47 98.6 89 20 138/84 98 06/05/17 06/05/17 06/06/17 15:00 23:00 07:00 Intake Total 600 ml 50 ml Balance 600 ml 50 ml Intake Oral 600 ml 50 ml # Voids 3 2 1 # Bowel Movements 1 0 0 Result Diagram: 06/05/17 0726 06/05/17 0726 Imaging Last [address] 06/04/17 0000 Signed Impressions: Service Date/Time: Sunday, June 04, 2017 16:04 - CONCLUSION: 1. Extensive sinus disease. 2. Otherwise negative. Thom Colvin MD A/P Problem List: (1) CSF leak from nose Status: Acute Plan: 05/25/17..open repair nasal septal fracture with bilateral submucosal resection inferior turbinates and bilateral endoscopic excision of solomon bullosa onfor treatment of nasal airway obstruction and septal deviation with chronic sinus headache. 05/28/17 debridement of the nose and sinuses, drainage of septal hematoma. There was no sign of CSF leakage from the site of surgery noted with Valsalva maneuver during the procedure. 05/28/17 Lumbar subarachnoid drain on 05/28/[address] until approximately 06/03/17. 06/02/17 metrizamide and nucleotide study was done with injection through the subarachnoid drain with minimal tracer activity at the right superior posterior pledget and no definite contrast noted on post injection CT scan of the sinuses. She was discharged home 06/04 and then returned to ED with persistent csf leak with n/v Followed by Dr Olivares observe over weekend d/c ivf. resume diet prn nauea meds prn pain meds. pt has saline and afrin for sx's from ENT. add claritin/mucinex cxr to eval cough. Possible repeat of nucleotide pledget and intrathecal study on Wednesday or Wednesday (2) UTI (urinary tract infection) Status: Acute Plan: on abx. f/u cx (3) Cavitary pneumonia Status: Resolved Plan: hx cavitary lung lesion/mrsa 2015 Problem Qualifiers (1) UTI (urinary tract infection): Qualified Code: N39.0 - Urinary tract infection with hematuria, site unspecified Samir Raymond MD Jun 06, 2017 09:38
[2017-06-06 09:40] LABS: BICARBONATE 20.7 MEQ/L (21.0-32.0); POTASSIUM 3.3 MEQ/L (3.5-5.1)
[2017-06-06] MEDS ORDERED: guaiFENesin E.R. 600 MG TAB PO ONE (09:45)
[2017-06-06] MEDS ORDERED: LORATADINE 10 MG TAB PO ONE (09:45)
--- NOTE | 2017-06-06 09:54 | RADRPT ---
EXAM DATE/TIME: 06/06/2017 09:45 [facility] COMPARISON: CHEST SINGLE AP, August 19, 2016, 13:33. INDICATIONS : Cough. MEDICAL HISTORY : None. SURGICAL HISTORY : Septoplasty, CSF leak. ENCOUNTER: Initial ACUITY: 3 days PAIN SCORE: 0/10 LOCATION: Bilateral chest FINDINGS: A single view of the chest demonstrates the lungs to be symmetrically aerated without evidence of mas s, infiltrate or effusion. The cardiomediastinal contours are unremarkable. Osseous structures are intact. There is no evidence of pneumonia. CONCLUSION: No acute disease. Marcel Gee MD on June 06, 2017 at 9:53 Board Certified Radiologist. This report was verified electronically.
[2017-06-06 12:00] VITALS: BP 116/63; PULSE 78; RESP 16; TEMP 98.4; O2SAT 97
--- NOTE | 2017-06-06 13:19 | HHI.NSPN ---
History Chief Complaint: headache and nausea Interval History Ms. Felix is a 27-year-old female who previously underwent open repair nasal septal fracture with bilateral submucosal resection inferior turbinates and bilateral endoscopic excision of solomon bullosa on 05/25/2017 for treatment of nasal airway obstruction and septal deviation with chronic sinus headache. Postoperatively she developed headache, nausea, vomiting, blurred vision. She returned to the operating room on 05/28/17 4 postoperative debridement of the nose and sinuses, drainage of septal hematoma. There was no sign of CSF leakage from the site of surgery noted with Valsalva maneuver during the procedure. Patient complained of persistent CSF leak, headaches, nausea again postoperatively. She underwent placement of a lumbar subarachnoid drain on which remained in place until approximately 06/03/17. A metrizamide and nucleotide study was done with injection through the subarachnoid drain on 06/02/17 with minimal tracer activity at the right superior posterior pledget and no definite contrast noted on post injection CT scan of the sinuses. The drain was removed and she was discharged home earlier today with follow-up in the ENT clinic. Due to persistent nausea vomiting and nasal drainage she returned back to the emergency room this afternoon. No complaint fevers chills. Patient does give a history of significant nasal fluid leakage following a dental extraction which she states was repaired per oral maxillofacial surgery as an outpatient. 06/05/2017: Remains at bedrest. Feel some drainage on the back of her throat, occasional cough. No complaint of fever, chills. No nausea resolved as long as she stays mostly flat in bed. When she gets up to the bathroom, she feels the headache started to return. She is tolerating diet. Exam Results Vital Signs Date Time Temp Pulse Resp B/P Pulse Ox O2 Delivery O2 Flow Rate FiO2 06/06/17 12:00 98.4 78 16 116/63 97 06/04/17 19:31 Room Air Intake and Output 06/05/17 06/05/17 06/06/17 08:00 16:00 00:00 Intake Total 600 ml Balance 600 ml Physical Examination Respirations clear to auscultation No nuchal rigidity No facial edema or ecchymosis No obvious CSF otorrhea or rhinorrhea Awake alert oriented conversant and appropriate Appears comfortable with head of bed mildly elevated Extraocular movements and visual harper to confrontation as well as bilateral hearing to finger rub are all intact. Medical Decision Making Impression and Plan Impression: 1. Symptoms consistent with persistent CSF leak post ENT surgical procedure. No definite CSF leakage noted over the past 24 hours. Plan: Patient will remain at bedrest over the weekend. Discuss with on Wednesday. She will tentatively be rescheduled for a repeat nucleotide pledget study and metrizamide intrathecal contrast study with thin cut CT through the frontal skull base if persistent signs of CSF leakage. Aleks Olivares MD Jun 06, 2017 13:19
[2017-06-06 16:00] VITALS: BP 124/71; PULSE 83; RESP 17; TEMP 98.5; O2SAT 98
[2017-06-06] MEDS: cefTRIAXone INJ 1,000 MG in SODIUM CHLORIDE 0.9% INJ 100 ML IV SCH (17:22)
[2017-06-06 19:26] VITALS: BP 138/67; PULSE 86; RESP 18; TEMP 97.7; O2SAT 94
[2017-06-06] MEDS: guaiFENesin E.R. 600 MG TAB PO SCH (20:26)
[2017-06-07] VITALS (7 sets, daily range): BP systolic 111–132; BP diastolic 64–77; PULSE 74–102; RESP 18–20; TEMP 97.6–98.7; O2SAT 94–98
[2017-06-07] MEDS: ACETAMINOPHEN/HYDROcodone 325 MG/5 MG TAB PO PRN ×3 (06:14→19:28)
[2017-06-07] MEDS: ONDANSETRON HCL 4 MG/2 ML VIAL IVP PRN ×3 (06:15→19:28)
[2017-06-07] MEDS: guaiFENesin E.R. 600 MG TAB PO SCH ×2 (08:41→21:47)
[2017-06-07] MEDS: DOCUSATE SODIUM 50 MG/SENNA 8.6 MG TAB PO SCH ×2 (08:41→21:47)
[2017-06-07] MEDS: LACTOBACILLUS ACIDOPHILUS TAB PO SCH ×2 (08:41→21:47)
[2017-06-07] MEDS: LORATADINE 10 MG TAB PO SCH (08:41)
[2017-06-07] MEDS: FLUTICASONE 100 MCG/VILANTEROL 25 MCG INHALER INH SCH (08:42)
[2017-06-07] MEDS: SODIUM CHLORIDE 0.9% FLUSH 10 ML FLUSH IV FLUSH SCH ×2 (08:42→21:48)
--- NOTE | 2017-06-07 16:20 | HHI.PR ---
Subjective Remarks per pt, she first developed CSF leakage following wisdom tooth extraction 2 years ago since that time pt has had intermittent unilateral CSF drainage. Pt underwent nasal septum surgery. Pt reports that after the nasal septum surgery she had increased CSF drainage, now bilateral. The CSF drainage has decreased/resolved in the last few days. However, when pt is out of bed (eg using bedside commode) she develops severe nausea and weakness. Pt also c/o symptoms c/w vaginal candidiasis since starting rocephin. Objective Vitals Vital Signs Date Time Temp Pulse Resp B/P Pulse Ox O2 Delivery O2 Flow Rate FiO2 06/07/17 12:14 98.2 102 20 111/68 96 06/07/17 08:29 98.2 80 20 116/73 97 06/07/17 06:26 98.7 80 18 118/73 97 06/07/17 00:00 97.6 80 18 132/64 94 06/06/17 19:26 97.7 86 18 138/67 94 06/06/17 06/06/17 06/07/17 14:59 22:59 06:59 Intake Total 340 ml Balance 340 ml Intake Oral 340 ml # Voids 4 # Bowel Movements 2 Result Diagram: 06/05/17 0726 06/06/17 0739 Imaging Last Impressions Chest X-Ray 06/06/17 0000 Signed Impressions: Service Date/Time: Tuesday, June 06, 2017 09:45 - CONCLUSION: No acute disease. Marcel Gee MD Head CT 06/04/17 0000 Signed Impressions: Service Date/Time: Sunday, June 04, 2017 16:04 - CONCLUSION: 1. Extensive sinus disease. 2. Otherwise negative. Thom Colvin MD Objective Remarks GENERAL: This is a well-nourished, well-developed patient, in no apparent distress. CARDIOVASCULAR: Regular rate and rhythm without murmurs, gallops, or rubs. RESPIRATORY: Clear to auscultation. Breath sounds equal bilaterally. No wheezes , rales, or rhonchi. GASTROINTESTINAL: Abdomen soft, non-tender, nondistended. Normal active bowel sounds MUSCULOSKELETAL: Extremities without clubbing, cyanosis, or edema. NEURO: Alert & Oriented x4 to person, place, time, situation. Moves all ext x4 A/P Problem List: (1) CSF leak from nose Status: Acute Plan: 05/25/17..open repair nasal septal fracture with bilateral submucosal resection inferior turbinates and bilateral endoscopic excision of solomon bullosa onfor treatment of nasal airway obstruction and septal deviation with chronic sinus headache. 05/28/17 debridement of the nose and sinuses, drainage of septal hematoma. There was no sign of CSF leakage from the site of surgery noted with Valsalva maneuver during the procedure. 05/28/17 Lumbar subarachnoid drain on 05/28/[address] until approximately 06/03/17. 06/02/17 metrizamide and nucleotide study was done with injection through the subarachnoid drain with minimal tracer activity at the right superior posterior pledget and no definite contrast noted on post injection CT scan of the sinuses. She was discharged home 06/04 and then returned to ED with persistent csf leak with n/v Followed by Dr Olivares observe over weekend d/c ivf. resume diet prn nauea meds prn pain meds. pt has saline and afrin for sx's from ENT. add claritin/mucinex cxr to eval cough. Possible repeat of nucleotide pledget and intrathecal study on Wednesday or Wednesday06/07/17 - Case d/w Dr. Bach (06/07/17) - Case was discussed between Dr. Olivares and Mikala - would prefer to avoid surgical intervention if possible - will obtain repeat nucleotide study - Consult ENT, Dr. Bunn, for placement of nasal pelts for cystoscopy (2) UTI (urinary tract infection) Status: Acute Plan: - urine culture --> probable contaminant - stop Rocephin - start diflucan (3) Cavitary pneumonia Status: Resolved Plan: hx cavitary lung lesion/mrsa 2016 Problem Qualifiers (1) UTI (urinary tract infection): Qualified Code: N39.0 - Urinary tract infection with hematuria, site unspecified Gaurav Ovalle DO Jun 07, 2017 16:20
--- NOTE | 2017-06-07 16:39 | HHI.NSPN ---
Note Status Status: Progress Note Interval History Diagnosis CSF LEAK Interval History Ms. Felix is a 27-year-old female who previously underwent open repair nasal septal fracture with bilateral submucosal resection inferior turbinates and bilateral endoscopic excision of solomon bullosa on 05/25/2017 for treatment of nasal airway obstruction and septal deviation with chronic sinus headache. Postoperatively she developed headache, nausea, vomiting, blurred vision. She returned to the operating room on 05/28/17 4 postoperative debridement of the nose and sinuses, drainage of septal hematoma. There was no sign of CSF leakage from the site of surgery noted with Valsalva maneuver during the procedure. Patient complained of persistent CSF leak, headaches, nausea again postoperatively. She underwent placement of a lumbar subarachnoid drain on which remained in place until approximately 06/03/17. A metrizamide and nucleotide study was done with injection through the subarachnoid drain on 06/02/17 with minimal tracer activity at the right superior posterior pledget and no definite contrast noted on post injection CT scan of the sinuses. The drain was removed and she was discharged home earlier today with follow-up in the ENT clinic. Due to persistent nausea vomiting and nasal drainage she returned back to the emergency room this afternoon. No complaint fevers chills. Patient does give a history of significant nasal fluid leakage following a dental extraction which she states was repaired per oral maxillofacial surgery as an outpatient. 06/07/2017: She is at bedrest. Reports persistent pain and pressure in the frontal region. No complaint of fever, chills. Nauseas resolved as long as she stays mostly flat in bed. No emesis. She is tolerating diet. Labs, Micro, & Vital Signs Results Date Time Temp Pulse Resp B/P Pulse Ox O2 Delivery O2 Flow Rate FiO2 06/07/17 12:14 98.2 102 20 111/68 96 06/07/17 08:29 98.2 80 20 116/73 97 06/07/17 06:26 98.7 80 18 118/73 97 06/07/17 00:00 97.6 80 18 132/64 94 06/06/17 19:26 97.7 86 18 138/67 94 06/07/17 06:59 Intake Total 340 ml Balance 340 ml Constitutional Vital Signs Date Time Temp Pulse Resp B/P Pulse Ox O2 Delivery O2 Flow Rate FiO2 06/07/17 12:14 98.2 102 20 111/68 96 06/07/17 08:29 98.2 80 20 116/73 97 06/07/17 06:26 98.7 80 18 118/73 97 06/07/17 00:00 97.6 80 18 132/64 94 06/06/17 19:26 97.7 86 18 138/67 94 06/07/17 06:59 Intake Total 340 ml Balance 340 ml Review of Systems/Exam Exam She is alert, awake and oriented to time, place and person. Speech is fluent. No obvious CSF otorrhea or rhinorrhea Cranial nerve examination: pupils to be equal, round and reactive to light. Extra-ocular movements are intact. Facial motor and sensory function are normal and symmetrical. Gross hearing appears intact. Sternocleidomastoid and trapezius muscles are symmetrical. Other cranial nerves are intact. Neck is soft and supple with a good range of motion without pain. Muscle strength is normal in all muscle groups of both upper and lower extremities. Sensory examination is intact to light touch and pin prick in both the upper and lower extremities. Deep tendon reflexes are symmetrical in both upper and lower extremities. There is a bilateral plantar flexion response. Cerebellar examination is unremarkable, without deficits. Medications Current Medications Current Medications Ondansetron HCl 4 mg 4 mg ONCE ONCE IV PUSH Last administered on 06/04/17 15: 06; Start 06/04/17 at 14:45; Stop 06/04/17 at 14:46; Status DC Sodium Chloride (NS 1000 ml Inj) 1,000 ml @ 1,000 mls/hr Q1H IV Last administered on 06/04/17 15:07; Start 06/04/17 at 15:00; Stop 06/04/17 at 15:59 ; Status DC Sodium Chloride 2 ml 2 ml UNSCH PRN IVF FLUSH AFTER USING IV ACCESS; Start 09/10 at 15:00; Stop 06/04/17 at 18:33; Status DC Potassium Chloride 100 ml @ 100 mls/hr Q1H IV Last administered on 06/05/17 03:26; Start 06/04/17 at 17:00; Stop 06/04/17 at 19:59; Status DC Ceftriaxone Sodium 1000 mg/ Sodium Chloride 100 ml @ 200 mls/hr ONCE ONCE IV Last administered on 06/04/17 17:58; Start 06/04/17 at 17:30; Stop 06/04/17 at 17:59; Status DC Potassium Chloride/Dextrose/ Sod Cl (D5-1/2 NS + KCl 20 Meq Inj) 1,000 ml @ 100 mls/hr Q10H IV Last administered on 06/04/17 18:55; Start 06/04/17 at 18: 00; Stop 06/05/17 at 10:28; Status DC Sodium Chloride (NS Flush) 2 ml UNSCH PRN IV FLUSH FLUSH AFTER USING IV ACCESS ; Start 06/04/17 at 18:00 Sodium Chloride (NS Flush) 2 ml BID IV FLUSH Last administered on 06/07/17 08: 42; Start 06/04/17 at 21:00 Acetaminophen (Tylenol) 650 mg Q4H PRN PO TEMP > 100.4; Start 06/04/17 at 18:00 Ondansetron HCl (Zofran Inj) 4 mg Q6H PRN IVP NAUSEA OR VOMITING Last administered on 06/07/17 12:26; Start 06/04/17 at 18:00 Naloxone HCl (Narcan Inj) 0.4 mg UNSCH PRN IV SEE LABEL COMMENTS; Start at 18:00 Senna/Docusate Sodium (Liv-Colace) 1 tab BID PO Last administered on 08:41; Start 06/04/17 at 21:00 Magnesium Hydroxide (Milk Of Magnesia Liq) 30 ml Q12H PRN PO MILD - MODERATE CONSTIPATION; Start 06/04/17 at 18:00 Sennosides (Senokot) 17.2 mg Q12H PRN PO MODERATE - SEVERE CONSTIPATION; Start 06/04/17 at 18:00 Bisacodyl (Dulcolax Supp) 10 mg DAILY PRN RECTAL SEVERE CONSITIPATION; Start at 18:00 Lactulose 30 ml 30 ml DAILY PRN PO SEVERE CONSITIPATION; Start 06/04/17 at 18: 00 Ceftriaxone Sodium/Sodium Chloride (Rocephin Inj/NS Inj) 100 ml @ 200 mls/hr Q24H IV Last administered on 06/06/17 17:22; Start 06/05/17 at 18:00; Stop at 16:21; Status DC Pantoprazole Sodium (Protonix Inj) 40 mg Q24H IV PUSH Last administered on 06/05 17:52; Start 06/04/17 at 18:00; Stop 06/06/17 at 09:36; Status DC Albuterol Sulfate (Proair Hfa Inh) 1 puff Q4H PRN INH SHORTNESS OF BREATH Last administered on 06/05/17 17:52; Start 06/04/17 at 18:00 Fluticasone/ Vilanterol (Breo Ellipta 100-25 Inh) 1 puff DAILY INH Last administered on 06/07/17 08:42; Start 06/05/17 at 09:00 Lorazepam (Ativan) 0.5 mg DAILY PRN PO ANXIETY Last administered on 06/04/17 19:00; Start 06/04/17 at 18:00 Acetaminophen/ Hydrocodone Bitart (Paoli 5-325 Mg) 1 tab ONCE ONCE PO Last administered on 06/04/17 19:29; Start 06/04/17 at 19:00; Stop 06/04/17 at 19:01 ; Status DC Lactobacillus Acidophilus (Lactinex) 1 tab Q12HR PO Last administered on 08:41; Start 06/05/17 at 09:00 Fluconazole (Diflucan) 100 mg DAILY PO Last administered on 06/06/17 08:13; Start 06/05/17 at 09:00; Stop 06/06/17 at 09:39; Status DC Fluconazole (Diflucan) 100 mg ONCE ONCE PO Last administered on 06/04/17 22: 12; Start 06/04/17 at 21:45; Stop 06/04/17 at 21:46; Status DC Acetaminophen/ Hydrocodone Bitart (Paoli 5-325 Mg) 1 tab Q4H PRN PO pain 2-5 Last administered on 06/07/17 12:27; Start 06/05/17 at 10:30 Acetaminophen/ Hydrocodone Bitart 2 tab 2 tab Q4H PRN PO pain 6-10; Start 06/05 at 10:30 Potassium Chloride/Sodium Chloride (NS + KCl 20 Meq Inj) 1,000 ml @ 84 mls/hr [id number] IV Last administered on 06/05/17 13:18; Start 06/05/17 at 10:30; Stop 06/06/17 at 09:36; Status DC Loratadine (Claritin) 10 mg DAILY PO Last administered on 06/07/17 08:41; Start 06/07/17 at 09:00 Loratadine (Claritin) 10 mg ONCE ONCE PO Last administered on 06/06/17 10:15 ; Start 06/06/17 at 09:45; Stop 06/06/17 at 09:46; Status DC Guaifenesin (Mucinex Er) 600 mg BID PO Last administered on 06/07/17 08:41; Start 06/06/17 at 21:00 Guaifenesin (Mucinex Er) 600 mg ONCE ONCE PO Last administered on 06/06/17 10 :15; Start 06/06/17 at 09:45; Stop 06/06/17 at 09:46; Status DC Medical Decision Making MDM Remarks Last Impressions Chest X-Ray 06/06/17 0000 Signed Impressions: Service Date/Time: Tuesday, June 06, 2017 09:45 - CONCLUSION: No acute disease. Marcel Gee MD Head CT 06/04/17 0000 Signed Impressions: Service Date/Time: Sunday, June 04, 2017 16:04 - CONCLUSION: 1. Extensive sinus disease. 2. Otherwise negative. Thom Colvin MD Plan Plan Remarks Symptoms suspicious with persistent CSF leak Attending Statement neuro checks. I discussed her case extensively with Dr. Olivares. No clear CSF leak seen on the prior CT cisternogram . We are not sure whether there is a CSF leak. Recommend to repeat the CT cisternogram with the patient in a prone position. I discussed with her again the alternatives of treatment. Pulmonary. Continue aggressive pulmonary toilette, nasotracheal suction, and breathing treatments with nebulizers. Nutrition. Tolerating Oral diet Renal. Continue to monitor closely urine output, BUN and creatinine Endocrine. Continue Monitor serial Acu checks and SSI as needed Continue to monitor for signs of infection Continue Protonix for stress ulcer prophylaxis Continue Jadon hose and SCD's for DVT prophylaxis Ousmane Bach MD Jun 07, 2017 16:39
[2017-06-07] MEDS ORDERED: PILL SPLITTER OTHER PRN (17:00)
[2017-06-07] MEDS ORDERED: FLUCONAZOLE 100 MG TAB PO ONE (17:00)
[2017-06-07] MEDS: SODIUM CHLORIDE 0.9% FLUSH 10 ML FLUSH IV FLUSH PRN (19:28)
[2017-06-08 04:08] VITALS: BP 117/71; PULSE 70; RESP 20; TEMP 98.1; O2SAT 97
[2017-06-08] MEDS: guaiFENesin E.R. 600 MG TAB PO SCH ×2 (07:45→22:21)
[2017-06-08] MEDS: LORATADINE 10 MG TAB PO SCH (07:45)
[2017-06-08] MEDS: ONDANSETRON HCL 4 MG/2 ML VIAL IVP PRN ×4 (07:45→23:18)
[2017-06-08] MEDS: LACTOBACILLUS ACIDOPHILUS TAB PO SCH ×2 (07:45→22:20)
[2017-06-08] MEDS: SODIUM CHLORIDE 0.9% FLUSH 10 ML FLUSH IV FLUSH PRN (07:46)
[2017-06-08] MEDS: ACETAMINOPHEN/HYDROcodone 325 MG/5 MG TAB PO PRN ×4 (07:46→22:19)
[2017-06-08] MEDS: DOCUSATE SODIUM 50 MG/SENNA 8.6 MG TAB PO SCH ×2 (08:05→22:20)
[2017-06-08] MEDS: SODIUM CHLORIDE 0.9% FLUSH 10 ML FLUSH IV FLUSH SCH ×2 (08:05→22:21)
[2017-06-08] MEDS: FLUTICASONE 100 MCG/VILANTEROL 25 MCG INHALER INH SCH (08:15)
[2017-06-08 08:32] VITALS: BP 122/72; PULSE 73; RESP 20; TEMP 98.3; O2SAT 96
--- NOTE | 2017-06-08 11:58 | PD.RAD ---
Post Procedure Progress Note Pre Procedure Diagnosis: (1) CSF leak from nose Post Procedure Diagnosis: (1) CSF leak from nose Procedure Date: Jun 08, 2017 Supervising Radiologist: Jose G Penn Estimated blood loss: none Anesthesia: Local Plan of Activity Patient to Unit: [facility] Patient Condition: Good Additional Comments: LP completed 12cc of omni 300 administered into the thecal sac without difficulty. Thin section CT for CSF leak pending See PACS Report for procedural detail/treatment Jose G Penn MD Jun 08, 2017 11:57
[2017-06-08] MEDS ORDERED: IOHEXOL 300 MG/ML 50 ML BTL (for RAD DIAG) IT ONE (12:17)
--- NOTE | 2017-06-08 13:42 | HHI.NSPN ---
Note Status Status: Progress Note Interval History Diagnosis CSF LEAK Interval History Ms. Felix is a 27-year-old female who previously underwent open repair nasal septal fracture with bilateral submucosal resection inferior turbinates and bilateral endoscopic excision of solomon bullosa on 05/25/2017 for treatment of nasal airway obstruction and septal deviation with chronic sinus headache. Postoperatively she developed headache, nausea, vomiting, blurred vision. She returned to the operating room on 05/28/17 4 postoperative debridement of the nose and sinuses, drainage of septal hematoma. There was no sign of CSF leakage from the site of surgery noted with Valsalva maneuver during the procedure. Patient complained of persistent CSF leak, headaches, nausea again postoperatively. She underwent placement of a lumbar subarachnoid drain on which remained in place until approximately 06/03/17. A metrizamide and nucleotide study was done with injection through the subarachnoid drain on 06/02/17 with minimal tracer activity at the right superior posterior pledget and no definite contrast noted on post injection CT scan of the sinuses. The drain was removed and she was discharged home earlier today with follow-up in the ENT clinic. Due to persistent nausea vomiting and nasal drainage she returned back to the emergency room this afternoon. No complaint fevers chills. Patient does give a history of significant nasal fluid leakage following a dental extraction which she states was repaired per oral maxillofacial surgery as an outpatient. 06/07/2017: She is at bedrest. Reports persistent pain and pressure in the frontal region. No complaint of fever, chills. Nauseas resolved as long as she stays mostly flat in bed. No emesis. She is tolerating diet. 06/08. She continues to have nauseas and headaches. Cisternogram in progress Labs, Micro, & Vital Signs Results Date Time Temp Pulse Resp B/P Pulse Ox O2 Delivery O2 Flow Rate FiO2 06/08/17 08:32 98.3 73 20 122/72 96 06/08/17 04:08 98.1 70 20 117/71 97 06/07/17 23:39 98.4 79 20 127/77 97 06/07/17 19:38 98.7 76 20 126/75 98 06/07/17 16:34 98.4 74 20 124/75 98 06/08/17 07:00 Intake Total 960 ml Balance 960 ml Constitutional Vital Signs Date Time Temp Pulse Resp B/P Pulse Ox O2 Delivery O2 Flow Rate FiO2 06/08/17 08:32 98.3 73 20 122/72 96 06/08/17 04:08 98.1 70 20 117/71 97 06/07/17 23:39 98.4 79 20 127/77 97 06/07/17 19:38 98.7 76 20 126/75 98 06/07/17 16:34 98.4 74 20 124/75 98 06/08/17 07:00 Intake Total 960 ml Balance 960 ml Review of Systems/Exam Exam She is alert, awake and oriented to time, place and person. Speech is fluent. No obvious CSF otorrhea or rhinorrhea Cranial nerve examination: pupils to be equal, round and reactive to light. Extra-ocular movements are intact. Facial motor and sensory function are normal and symmetrical. Gross hearing appears intact. Sternocleidomastoid and trapezius muscles are symmetrical. Other cranial nerves are intact. Neck is soft and supple with a good range of motion without pain. Muscle strength is normal in all muscle groups of both upper and lower extremities. Sensory examination is intact to light touch and pin prick in both the upper and lower extremities. Deep tendon reflexes are symmetrical in both upper and lower extremities. There is a bilateral plantar flexion response. Cerebellar examination is unremarkable, without deficits. Medications Current Medications Current Medications Ondansetron HCl 4 mg 4 mg ONCE ONCE IV PUSH Last administered on 06/04/17 15: 06; Start 06/04/17 at 14:45; Stop 06/04/17 at 14:46; Status DC Sodium Chloride (NS 1000 ml Inj) 1,000 ml @ 1,000 mls/hr Q1H IV Last administered on 06/04/17 15:07; Start 06/04/17 at 15:00; Stop 06/04/17 at 15:59 ; Status DC Sodium Chloride 2 ml 2 ml UNSCH PRN IVF FLUSH AFTER USING IV ACCESS; Start 09/10 at 15:00; Stop 06/04/17 at 18:33; Status DC Potassium Chloride 100 ml @ 100 mls/hr Q1H IV Last administered on 06/05/17 03:26; Start 06/04/17 at 17:00; Stop 06/04/17 at 19:59; Status DC Ceftriaxone Sodium 1000 mg/ Sodium Chloride 100 ml @ 200 mls/hr ONCE ONCE IV Last administered on 06/04/17 17:58; Start 06/04/17 at 17:30; Stop 06/04/17 at 17:59; Status DC Potassium Chloride/Dextrose/ Sod Cl (D5-1/2 NS + KCl 20 Meq Inj) 1,000 ml @ 100 mls/hr Q10H IV Last administered on 06/04/17 18:55; Start 06/04/17 at 18: 00; Stop 06/05/17 at 10:28; Status DC Sodium Chloride (NS Flush) 2 ml UNSCH PRN IV FLUSH FLUSH AFTER USING IV ACCESS Last administered on 06/08/17 07:46; Start 06/04/17 at 18:00 Sodium Chloride (NS Flush) 2 ml BID IV FLUSH Last administered on 06/08/17 08: 05; Start 06/04/17 at 21:00 Acetaminophen (Tylenol) 650 mg Q4H PRN PO TEMP > 100.4; Start 06/04/17 at 18:00 Ondansetron HCl (Zofran Inj) 4 mg Q6H PRN IVP NAUSEA OR VOMITING Last administered on 06/08/17 12:19; Start 06/04/17 at 18:00 Naloxone HCl (Narcan Inj) 0.4 mg UNSCH PRN IV SEE LABEL COMMENTS; Start at 18:00 Senna/Docusate Sodium (Liv-Colace) 1 tab BID PO Last administered on 21:47; Start 06/04/17 at 21:00 Magnesium Hydroxide (Milk Of Magnesia Liq) 30 ml Q12H PRN PO MILD - MODERATE CONSTIPATION; Start 06/04/17 at 18:00 Sennosides (Senokot) 17.2 mg Q12H PRN PO MODERATE - SEVERE CONSTIPATION; Start 06/04/17 at 18:00 Bisacodyl (Dulcolax Supp) 10 mg DAILY PRN RECTAL SEVERE CONSITIPATION; Start at 18:00 Lactulose 30 ml 30 ml DAILY PRN PO SEVERE CONSITIPATION; Start 06/04/17 at 18: 00 Ceftriaxone Sodium/Sodium Chloride (Rocephin Inj/NS Inj) 100 ml @ 200 mls/hr Q24H IV Last administered on 06/06/17 17:22; Start 06/05/17 at 18:00; Stop at 16:21; Status DC Pantoprazole Sodium (Protonix Inj) 40 mg Q24H IV PUSH Last administered on 06/05 17:52; Start 06/04/17 at 18:00; Stop 06/06/17 at 09:36; Status DC Albuterol Sulfate (Proair Hfa Inh) 1 puff Q4H PRN INH SHORTNESS OF BREATH Last administered on 06/05/17 17:52; Start 06/04/17 at 18:00 Fluticasone/ Vilanterol (Breo Ellipta 100-25 Inh) 1 puff DAILY INH Last administered on 06/08/17 08:15; Start 06/05/17 at 09:00 Lorazepam (Ativan) 0.5 mg DAILY PRN PO ANXIETY Last administered on 06/04/17 19:00; Start 06/04/17 at 18:00 Acetaminophen/ Hydrocodone Bitart ([place] 5-325 Mg) 1 tab ONCE ONCE PO Last administered on 06/04/17 19:29; Start 06/04/17 at 19:00; Stop 06/04/17 at 19:01 ; Status DC Lactobacillus Acidophilus (Lactinex) 1 tab Q12HR PO Last administered on 07:45; Start 06/05/17 at 09:00 Fluconazole (Diflucan) 100 mg DAILY PO Last administered on 06/06/17 08:13; Start 06/05/17 at 09:00; Stop 06/06/17 at 09:39; Status DC Fluconazole (Diflucan) 100 mg ONCE ONCE PO Last administered on 06/04/17 22: 12; Start 06/04/17 at 21:45; Stop 06/04/17 at 21:46; Status DC Acetaminophen/ Hydrocodone Bitart ([place] 5-325 Mg) 1 tab Q4H PRN PO pain 2-5 Last administered on 06/08/17 07:46; Start 06/05/17 at 10:30 Acetaminophen/ Hydrocodone Bitart 2 tab 2 tab Q4H PRN PO pain 6-10; Start 06/05 at 10:30 Potassium Chloride/Sodium Chloride (NS + KCl 20 Meq Inj) 1,000 ml @ 84 mls/hr [id number] IV Last administered on 06/05/17 13:18; Start 06/05/17 at 10:30; Stop 06/06/17 at 09:36; Status DC Loratadine (Claritin) 10 mg DAILY PO Last administered on 06/08/17 07:45; Start 06/07/17 at 09:00 Loratadine (Claritin) 10 mg ONCE ONCE PO Last administered on 06/06/17 10:15 ; Start 06/06/17 at 09:45; Stop 06/06/17 at 09:46; Status DC Guaifenesin (Mucinex Er) 600 mg BID PO Last administered on 06/08/17 07:45; Start 06/06/17 at 21:00 Guaifenesin (Mucinex Er) 600 mg ONCE ONCE PO Last administered on 06/06/17 10 :15; Start 06/06/17 at 09:45; Stop 06/06/17 at 09:46; Status DC Fluconazole (Diflucan) 150 mg ONCE ONCE PO Last administered on 06/07/17 17: 38; Start 06/07/17 at 17:00; Stop 06/07/17 at 17:01; Status DC Miscellaneous (Pill Splitter) 1 ea UNSCH PRN OTHER SEE LABEL COMMENTS; Start at 17:00 Iohexol (Omnipaque 300 Inj) 15 ml STK-MED ONCE IT Last administered on 11:52; Start 06/08/17 at 12:17; Stop 06/08/17 at 12:18; Status DC Medical Decision Making MDM Remarks Last Impressions Chest X-Ray 06/06/17 0000 Signed Impressions: Service Date/Time: Tuesday, June 06, 2017 09:45 - CONCLUSION: No acute disease. Marcel Gee MD Head CT 06/04/17 0000 Signed Impressions: Service Date/Time: Sunday, June 04, 2017 16:04 - CONCLUSION: 1. Extensive sinus disease. 2. Otherwise negative. Thom Colvin MD Last Impressions Chest X-Ray 06/06/17 0000 Signed Impressions: Service Date/Time: Tuesday, June 06, 2017 09:45 - CONCLUSION: No acute disease. Marcel Gee MD Head CT 06/04/17 0000 Signed Impressions: Service Date/Time: Sunday, June 04, 2017 16:04 - CONCLUSION: 1. Extensive sinus disease. 2. Otherwise negative. Thom Colvin MD Plan Plan Remarks Symptoms suspicious with persistent CSF leak Attending Statement Neuro checks. CT cisternogram in progress. We are not sure whether there is a CSF leak. I again discussed with her again the alternatives of treatment. I will defer recommendations to upon completion of her workup Pulmonary. Continue aggressive pulmonary toilette, nasotracheal suction, and breathing treatments with nebulizers. Nutrition. Tolerating Oral diet Renal. Continue to monitor closely urine output, BUN and creatinine Endocrine. Continue Monitor serial Acu checks and SSI as needed Continue to monitor for signs of infection Continue Protonix for stress ulcer prophylaxis Continue Jadon hose and SCD's for DVT prophylaxis Cisternogram was negative for CSF leak. Discussed with Dr Ovalle. Recommend ENT for sinusitis Ousmane Bach MD Jun 08, 2017 13:42
--- NOTE | 2017-06-08 14:36 | RADRPT ---
EXAM DATE/TIME: 06/08/2017 11:31 [facility] COMPARISON: CT SINUSES W/O CONTRAST, June 08, 2017, 12:47. LUMBAR DRAINAGE, May 28, 2017, 12:31. INDICATIONS : Patient presents with headache and possible cerebral spinal fluid leak in need of lumbar puncture wit h contrast injection for further evaluation. MEDICAL HISTORY : Asthma Migraines Sleep apnea Hemorrhoid SURGICAL HISTORY : Oral surgery sinus surgery Breast reduction Adenoids ENCOUNTER: Subsequent ACUITY: 4 -6 days PAIN SCORE: 0/10 LOCATION: N/A LUMBAR PUNCTURE TIME: 11:50 hours FLUORO TIME: 1.4 minutes IMAGE SERIES: 0 ACCESS LEVEL: L3-4 PROCEDURE : 1. Fluoroscopic guided lumbar puncture. The risks, benefits and alternatives to the procedure were explained and verbal and written consent w as obtained. The site was prepped in sterile fashion. Full sterile technique was used, including ca p, mask, sterile gloves and gown and a large sterile sheet. Hand hygiene and 2% chlorhexidine and/or betadine/alcohol prep was utilized per protocol for cutaneous antisepsis. The skin and subcutaneous tissues were infiltrated with local anesthetic solution. With fluoroscopic guidance the lumbar thecal sac was punctured at the L3/L4 level. Approximately 10-1 2 cc of Omnipaque 300 was administered into the thecal sac without difficulty. The patient was placed in Trendelenburg for approximately 10 minutes. The patient will be CT scan postop to assess for CSF leak. The patient tolerated the procedure well and there were no complications. CONCLUSION: Uncomplicated fluoroscopically guided lumbar puncture. Jose G Penn MD on June 08, 2017 at 14:31 Board Certified Radiologist. This report was verified electronically.
--- NOTE | 2017-06-08 15:03 | HHI.PR ---
Subjective Remarks No new complaints. Objective Vitals Vital Signs Date Time Temp Pulse Resp B/P Pulse Ox O2 Delivery O2 Flow Rate FiO2 06/08/17 08:32 98.3 73 20 122/72 96 06/08/17 04:08 98.1 70 20 117/71 97 06/07/17 23:39 98.4 79 20 127/77 97 06/07/17 19:38 98.7 76 20 126/75 98 06/07/17 16:34 98.4 74 20 124/75 98 06/07/17 06/07/17 06/08/17 15:00 23:00 07:00 Intake Total 960 ml Balance 960 ml Intake Oral 960 ml Result Diagram: 06/05/17 0726 06/06/17 0739 Imaging Last Impressions Chest X-Ray 06/06/17 0000 Signed Impressions: Service Date/Time: Tuesday, June 06, 2017 09:45 - CONCLUSION: No acute disease. Marcel Gee MD Head CT 06/04/17 0000 Signed Impressions: Service Date/Time: Sunday, June 04, 2017 16:04 - CONCLUSION: 1. Extensive sinus disease. 2. Otherwise negative. Thom Colvin MD Objective Remarks GENERAL: This is a well-nourished, well-developed patient, in no apparent distress. CARDIOVASCULAR: Regular rate and rhythm without murmurs, gallops, or rubs. RESPIRATORY: Clear to auscultation. Breath sounds equal bilaterally. No wheezes , rales, or rhonchi. GASTROINTESTINAL: Abdomen soft, non-tender, nondistended. Normal active bowel sounds MUSCULOSKELETAL: Extremities without clubbing, cyanosis, or edema. NEURO: Alert & Oriented x4 to person, place, time, situation. Moves all ext x4 A/P Problem List: (1) CSF leak from nose Status: Acute Plan: 05/25/17..open repair nasal septal fracture with bilateral submucosal resection inferior turbinates and bilateral endoscopic excision of solomon bullosa onfor treatment of nasal airway obstruction and septal deviation with chronic sinus headache. 05/28/17 debridement of the nose and sinuses, drainage of septal hematoma. There was no sign of CSF leakage from the site of surgery noted with Valsalva maneuver during the procedure. 05/28/17 Lumbar subarachnoid drain on 05/28/[address] until approximately 06/03/17. 06/02/17 metrizamide and nucleotide study was done with injection through the subarachnoid drain with minimal tracer activity at the right superior posterior pledget and no definite contrast noted on post injection CT scan of the sinuses. She was discharged home 06/04 and then returned to ED with persistent csf leak with n/v Followed by Dr Olivares observe over weekend d/c ivf. resume diet prn nauea meds prn pain meds. pt has saline and afrin for sx's from ENT. add claritin/mucinex cxr to eval cough. Possible repeat of nucleotide pledget and intrathecal study on Wednesday or Wednesday06/08/17 - Case d/w Dr. Bach (06/07/17) - Case was discussed between Dr. Olivares and Mikala - would prefer to avoid surgical intervention if possible - repeat nucleotide study in process. Case d/w Dr. Penn, Radiology. He will contact me at the conclusion of the study once all images have been obtained. (2) UTI (urinary tract infection) Status: Acute Plan: - urine culture --> probable contaminant - stop Rocephin - start diflucan (3) Cavitary pneumonia Status: Resolved Plan: hx cavitary lung lesion/mrsa 2015 Problem Qualifiers (1) UTI (urinary tract infection): Qualified Code: N39.0 - Urinary tract infection with hematuria, site unspecified Gaurav Ovalle DO Jun 08, 2017 15:02
[2017-06-08 16:22] VITALS: BP_SYST 66; PULSE 55; RESP 20; TEMP 98; O2SAT 94
--- NOTE | 2017-06-08 17:02 | RADRPT ---
EXAM DATE/TIME: 06/08/2017 12:47 [facility] COMPARISON: CT BRAIN W/O CONTRAST, June 04, 2017, 16:04. INDICATIONS : Evaluate for CSF leak RADIATION DOSE: 17.56 CTDIvol (mGy) ; Patient motion MEDICAL HISTORY : chronic migraines SURGICAL HISTORY : septoplasty ENCOUNTER: Subsequent ACUITY: 1 week PAIN SCORE: 0/10 LOCATION: cranial TECHNIQUE: Volumetric scanning of the paranasal sinuses was performed. Using automated exposure control and adj ustment of the mA and/or kV according to patient size, radiation dose was kept as low as reasonably a chievable to obtain optimal diagnostic quality images. DICOM format image data is available electro nically for review and comparison. FINDINGS: History: The patient is a 27-year-old who underwent surgery for deviated septum. There was concern for postop CSF leak. Procedure: The patient underwent lumbar puncture with approximately 10-12 cc of Omnipaque 300 administration int o the thecal sac. The patient was placed in Trendelenburg for approximately 10-15 minutes. The patien t was brought down to the CT scanner and placed in a position to recreate or symptoms. The patient wa s then placed prone on the CT scanner and thin section imaging through the cribriform plate was perfo rmed. We had the patient return in 2 hours for repeat, and delayed examination again performed in the prone position. Results: The examination is of excellent diagnostic quality. There is good visualization of the contrast withi n the subarachnoid space. There is no evidence of extravasation of contrast through the cribriform pl ate and into the sinuses on either the immediate or the delayed followup imaging. CT source data: The frontal sinus is clear. There is moderate mucoperiosteal sinus disease involving the ethmoid sinu ses and the left maxillary sinus. There is been resection of the middle nasal turbinates bilaterally. The nasal septum appears midline. There is no significant mucoperiosteal sinus disease in the spheno id sinus. Incidental note is made of a small mucous retention cyst in the right maxillary sinus. CONCLUSION: 1. There is no evidence of contrast extravasation on either the immediate or the delayed imaging to i ndicate CSF leak. 2. There is fairly extensive mucoperiosteal sinus disease. This is most significant in the right maxi llary sinus and the ethmoid sinuses. Jose G Penn MD on June 08, 2017 at 16:50 Board Certified Radiologist. This report was verified electronically.
[2017-06-08 20:00] VITALS: BP 111/63; PULSE 78; RESP 16; TEMP 99.3; O2SAT 97
[2017-06-09] VITALS: BP 110/60; PULSE 80; RESP 20; TEMP 98.9; O2SAT 95
[2017-06-09 04:00] VITALS: BP 95/62; PULSE 76; RESP 20; TEMP 97.8; O2SAT 95
[2017-06-09] MEDS: ONDANSETRON HCL 4 MG/2 ML VIAL IVP PRN ×3 (06:23→21:35)
[2017-06-09] MEDS: ACETAMINOPHEN/HYDROcodone 325 MG/5 MG TAB PO PRN ×3 (06:24→21:34)
[2017-06-09 08:14] VITALS: BP 111/58; PULSE 75; RESP 20; TEMP 98.4; O2SAT 96
[2017-06-09] MEDS: FLUTICASONE 100 MCG/VILANTEROL 25 MCG INHALER INH SCH (10:01)
[2017-06-09] MEDS: DOCUSATE SODIUM 50 MG/SENNA 8.6 MG TAB PO SCH ×2 (10:02→21:00)
[2017-06-09] MEDS: LACTOBACILLUS ACIDOPHILUS TAB PO SCH ×2 (10:02→21:33)
[2017-06-09] MEDS: LORATADINE 10 MG TAB PO SCH (10:02)
[2017-06-09] MEDS: guaiFENesin E.R. 600 MG TAB PO SCH ×2 (10:02→21:33)
[2017-06-09] MEDS: SODIUM CHLORIDE 0.9% FLUSH 10 ML FLUSH IV FLUSH SCH ×2 (10:03→21:00)
--- NOTE | 2017-06-09 16:00 | HHI.PR ---
Subjective Remarks Pt was able to sit on the commode this afternoon without the degree of LOVELACE and dizziness that she had been experiencing. Pt continues to c/o LOVELACE most pronounced at the posterior upper neck and posterior head with radiation to her temporal/occipital region x b/l Pt does voice difficulties with stress and follows with chiropractor outpt. Objective Vitals Vital Signs Date Time Temp Pulse Resp B/P Pulse Ox O2 Delivery O2 Flow Rate FiO2 06/09/17 08:14 98.4 75 20 111/58 96 06/09/17 04:00 97.8 76 20 95/62 95 06/09/17 00:00 98.9 80 20 110/60 95 06/08/17 20:00 99.3 78 16 111/63 97 06/08/17 16:22 98.0 55 20 66/ 94 06/08/17 06/08/17 06/09/17 15:00 23:00 07:00 Intake Total 0 ml 300 ml Output Total 400 ml Balance 0 ml -100 ml Intake Oral 0 ml 300 ml Output Urine Total 400 ml # Voids 2 # Bowel Movements 0 Result Diagram: 06/05/17 0726 06/06/17 0739 Imaging Last Impressions Lumbar Puncture Fluoroscopy 06/08/17 0000 Signed Impressions: Service Date/Time: Thursday, June 08, 2017 11:31 - CONCLUSION: Uncomplicated fluoroscopically guided lumbar puncture. Jose G Penn MD Sinuses CT 06/07/17 0000 Signed Impressions: Service Date/Time: Thursday, June 08, 2017 12:47 - CONCLUSION: 1. There is no evidence of contrast extravasation on either the immediate or the delayed imaging to indicate CSF leak. 2. There is fairly extensive mucoperiosteal sinus disease. This is most significant in the right maxillary sinus and the ethmoid sinuses. Jose G Penn MD Chest X-Ray 06/06/17 0000 Signed Impressions: Service Date/Time: Tuesday, June 06, 2017 09:45 - CONCLUSION: No acute disease. Marcel Gee MD Head CT 06/04/17 0000 Signed Impressions: Service Date/Time: Sunday, June 04, 2017 16:04 - CONCLUSION: 1. Extensive sinus disease. 2. Otherwise negative. Thom Colvin MD Objective Remarks GENERAL: This is a well-nourished, well-developed patient, in no apparent distress. CARDIOVASCULAR: Regular rate and rhythm without murmurs, gallops, or rubs. RESPIRATORY: Clear to auscultation. Breath sounds equal bilaterally. No wheezes , rales, or rhonchi. GASTROINTESTINAL: Abdomen soft, non-tender, nondistended. Normal active bowel sounds MUSCULOSKELETAL: Extremities without clubbing, cyanosis, or edema. NEURO: Alert & Oriented x4 to person, place, time, situation. Moves all ext x4 A/P Problem List: (1) CSF leak from nose Status: Acute Plan: 05/25/17..open repair nasal septal fracture with bilateral submucosal resection inferior turbinates and bilateral endoscopic excision of solomon bullosa onfor treatment of nasal airway obstruction and septal deviation with chronic sinus headache. 05/28/17 debridement of the nose and sinuses, drainage of septal hematoma. There was no sign of CSF leakage from the site of surgery noted with Valsalva maneuver during the procedure. 05/28/17 Lumbar subarachnoid drain on 05/28/[address] until approximately 06/03/17. 06/02/17 metrizamide and nucleotide study was done with injection through the subarachnoid drain with minimal tracer activity at the right superior posterior pledget and no definite contrast noted on post injection CT scan of the sinuses. She was discharged home 06/04 and then returned to ED with c/o persistent csf leak with n/v 06/08/17 CSF leak protocol - CT skull base protocol --> negative study for CSF leak - Case d/w Dr. Bach (06/08/17) --> NO indication for neurosurgical procedure. Neurosurgery will sign off - nucleotide study did indicate extensive sinuse disease. - start Augmentin for sinusitis - start flexeril for prn muscle tension - request Neurology Consultation - anticipate d/c to home 06/10 (2) UTI (urinary tract infection) Status: Acute Plan: - urine culture --> probable contaminant - stop Rocephin - start diflucan (3) Cavitary pneumonia Status: Resolved Plan: hx cavitary lung lesion/mrsa 2015 Problem Qualifiers (1) UTI (urinary tract infection): Qualified Code: N39.0 - Urinary tract infection with hematuria, site unspecified Gaurav Ovalle DO Jun 09, 2017 16:00
[2017-06-09] MEDS ORDERED: CYCLOBENZAPRINE HCL 10 MG TAB PO PRN (17:00)
[2017-06-09 20:35] VITALS: BP 115/65; PULSE 79; RESP 18; TEMP 98.1; O2SAT 97
[2017-06-09] MEDS: AMOXICILLIN/CLAVULANATE K 875 MG TAB PO SCH (21:32)
--- NOTE | 2017-06-09 22:35 | MB ---
cc: ANOOP DOSS DATE OF CONSULTATION 06/09/[address] Ovalle REASON FOR CONSULTATION Headache. HISTORY OF PRESENT ILLNESS Ms. Felix is a 27-year-old female who has a history of repair of nasal septal fracture on 05/25/17 for treatment of nasal airway obstruction and septal deviation, chronic sinus headaches. The patient complained of CSF leak as well as headaches. She underwent placement of a lumbar subarachnoid drain 05/28/[address] until 06/03/2017. She underwent a metrizamide and nucleotide study with injection to the subarachnoid drain with minimal trace reactivity in the right superior posterior pledget but no definite contrast noted on the post injection CT scan of the sinuses. It has been felt based on those studies that the patient does not have a persistent CSF leak. She does relates headaches, however, which began in the occipital region bilaterally radiate to the parietal temporal areas and in the frontal area. She has no associated neurologic deficits. NEUROLOGIC EXAMINATION VITAL SIGNS: Blood pressure 111/58, pulse 75, respirations 20, temperature 98.4 degrees. NEURO: Higher cortical functions normal. Cranial nerves II-XII are normal. Motor exam demonstrates normal strength and tone of all groups in both upper and lower extremities. Reflexes are symmetric. Neck is supple. She does have tenderness over the occipital grooves bilaterally. IMPRESSION/PLAN I believe the patient's headaches are most likely cervicogenic in nature from occipital neuralgia. At the current time would recommend a consideration for physical therapy. The patient is stable from a neurologic standpoint for discharge tomorrow. I would be happy to follow the patient as an outpatient if needed. MD XU Parker/ROBERT /8:19 PM /10:18 PM
[2017-06-10] VITALS: BP 88/54; PULSE 72; RESP 20; TEMP 98.3; O2SAT 96
[2017-06-10 08:00] VITALS: BP 104/57; PULSE 83; RESP 16; TEMP 98.4; O2SAT 97
[2017-06-10] MEDS: FLUTICASONE 100 MCG/VILANTEROL 25 MCG INHALER INH SCH (08:18)
[2017-06-10] MEDS: LACTOBACILLUS ACIDOPHILUS TAB PO SCH (08:18)
[2017-06-10] MEDS: AMOXICILLIN/CLAVULANATE K 875 MG TAB PO SCH (08:19)
[2017-06-10] MEDS: guaiFENesin E.R. 600 MG TAB PO SCH (08:19)
[2017-06-10] MEDS: LORATADINE 10 MG TAB PO SCH (08:19)
[2017-06-10] MEDS: DOCUSATE SODIUM 50 MG/SENNA 8.6 MG TAB PO SCH (08:19)
[2017-06-10] MEDS: ACETAMINOPHEN/HYDROcodone 325 MG/5 MG TAB PO PRN (08:42)
[2017-06-10 11:40] VITALS: BP 107/64; PULSE 82; RESP 16; TEMP 98.4; O2SAT 96
[2017-06-10] MEDS ORDERED: guaiFENesin ER PO (15:28)
[2017-06-10] MEDS ORDERED: HYDR-3516 PO (15:28)
[2017-06-10] MEDS ORDERED: CLAR10TA7 PO (15:28)
[2017-06-10] MEDS ORDERED: ACET1TAB86 PO (15:28)
[2017-06-10] MEDS ORDERED: AMOX875T2 PO (15:28)
[2017-06-10] MEDS ORDERED: CYCL1TAB29 PO (15:28)
[2017-06-10] MEDS ORDERED: LACT PO (15:28)
--- NOTE | 2017-06-10 15:55 | HHI.DS ---
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 Bunn on May 26 and subsequently developed a CSF leak, presents to the emergency department for intractable vomiting. Patient was discharged this morning following the CSF leak development.She underwent placement of a lumbar subarachnoid drain on 05/28/[address] until approximately 06/03/17. A metrizamide and nucleotide study was done with injection through the subarachnoid drain on 06/02/17 with minimal tracer activity at the right superior posterior pledget and no definite contrast noted on post injection CT scan of the sinuse She states prior to discharge she was vomiting and dry heaving. Her nose again began to leak CSF. She states she vomited brandy red blood at one time. She reports that she was discharged to follow-up with Dr. Bunn in his office. She went to Dr. Bunn's office where she continued to dry heave and vomit. She also had an episode of brandy red stool. Her and her mother then came here to the emergency department for further evaluation. Patient reports a frontal headache, persistent and unchanged from her headache she has had over the last 10 days. She does have some slight photophobia. Patient's symptoms are alleviated by lying in a near flat position. Patient denies any fever. Denies chest tightness. No focal deficits weakness. She has no other symptoms to report. Patient will be seen by neurosurgery and will admit with their plan also note patient has UTI will start on rocephin and did have some blood per rectum will follow up cbc does have hx hemorrhoids. CBC/BMP: 06/06/17 0739 PE at Discharge GENERAL: This is a well-nourished, well-developed patient, in no apparent distress. CARDIOVASCULAR: Regular rate and rhythm without murmurs, gallops, or rubs. RESPIRATORY: Clear to auscultation. Breath sounds equal bilaterally. No wheezes , rales, or rhonchi. GASTROINTESTINAL: Abdomen soft, non-tender, nondistended. Normal active bowel sounds MUSCULOSKELETAL: Extremities without clubbing, cyanosis, or edema. NEURO: Alert & Oriented x4 to person, place, time, situation. 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 05/28/17 debridement of the nose and sinuses, drainage of septal hematoma. There was no sign of CSF leakage from the site of surgery noted with Valsalva maneuver during the procedure. 05/28/17 Lumbar subarachnoid drain on 05/28/[address] until approximately 06/03/17. 06/02/17 metrizamide and nucleotide study was done with injection through the subarachnoid drain with minimal tracer activity at the right superior posterior pledget and no definite contrast noted on post injection CT scan of the sinuses. She was discharged home 06/04 and then returned to ED with c/o persistent csf leak with n/v 06/08/17 CSF leak protocol - CT skull base protocol --> negative study for CSF leak, extensive sinusitis - Case d/w Dr. Bach (06/08/17) --> NO indication for neurosurgical procedure. Neurosurgery will sign off - start Augmentin for sinusitis - start flexeril for prn muscle tension - appreciate input from Neurology. Pt c/o LOVELACE attributed to muscle tension LOVELACE - pt had no fever, no AMS, no nucal rigidity, negative Kernig sign, negative brudzinski sign. NO clinical indications of meningits - Pt to f/u with ENT, Dr. Bunn, in 1 week - Pt to f/u with Neurology, Dr. Tomas, in 3 weeks - discharge to home - see discharge orders (2) UTI (urinary tract infection) Status: Acute Plan: - urine culture --> probable contaminant - stop Rocephin - start diflucan (3) Cavitary pneumonia Status: Resolved Plan: hx cavitary lung lesion/mrsa 2015 Pt Condition on Discharge: Stable Discharge Disposition: Discharge Home Discharge Instructions DIET: Follow Instructions for: As Tolerated, No Restrictions Activities you can perform: Regular-No Restrictions Activities to Avoid: Driving for 24 hrs, Strenuous Activity Follow up Referrals: Ear Nose Throat - [address] Bunn Neurology - 2 Weeks with Silviano Tomas PhD MD PCP Follow-up - [address] Silviano Munguia New Medications: Acetaminophen (Eq Acetaminophen) 325 Mg Tab 650 MG PO Q4H PRN for pain for 30 Days, TAB 0 Refills Amoxicillin-Clavulanate (Amoxicillin-Clavulanate) 875-125 mg Tab 875 MG PO Q12HR for sinusitis, #18 TAB 0 Refills Cyclobenzaprine (Flexeril) 10 Mg Tab 10 MG PO Q8HR PRN for MUSCLE TENSION, #15 TAB 0 Refills Hydrocodone-Acetaminophen (Hydrocodone-Acetaminophen) 5-325 mg Tab 1 TAB PO Q4H PRN for pain, #15 TAB 0 Refills Lactobacillus Acidophilus (Acidophilus/l-Sporogenes) 1 Tab Tab 1 TAB PO Q12HR for antibiotics, #14 TAB 0 Refills Loratadine (Claritin) 10 Mg Tablet 10 MG PO DAILY for sinusitis, #30 MG 0 Refills [guaiFENesin ER] () 600 MG TABCR 600 MG PO BID for sinusitis, #40 TAB.SR 0 Refills Continued Medications: Albuterol 18 GM Inh (Ventolin Hfa 18 GM Inh) 90 Mcg/Act Aer 1 PUFF INH Q4H PRN for SHORTNESS OF BREATH, #1 INHALER 0 Refills Fluticasone-Vilanterol Inh (Breo Ellipta Inh) 100-25 Mcg/Act Inh 1 PUFF INH DAILY, #1 INHALER 0 Refills Use daily at the same time. Lorazepam (Lorazepam) 0.5 Mg Tab 0.5 MG PO DAILY PRN for ANXIETY, TAB 0 Refills Gaurav Ovalle DO Jun 10, 2017 15:55
--- NOTE | 2017-06-10 15:59 | HHI.DS ---
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 Bunn on May 26 and subsequently developed a CSF leak, presents to the emergency department for intractable vomiting. Patient was discharged this morning following the CSF leak development.She underwent placement of a lumbar subarachnoid drain on 05/28/[address] until approximately 06/03/17. A metrizamide and nucleotide study was done with injection through the subarachnoid drain on 06/02/17 with minimal tracer activity at the right superior posterior pledget and no definite contrast noted on post injection CT scan of the sinuse She states prior to discharge she was vomiting and dry heaving. Her nose again began to leak CSF. She states she vomited brandy red blood at one time. She reports that she was discharged to follow-up with Dr. Bunn in his office. She went to Dr. Bunn's office where she continued to dry heave and vomit. She also had an episode of brandy red stool. Her and her mother then came here to the emergency department for further evaluation. Patient reports a frontal headache, persistent and unchanged from her headache she has had over the last 10 days. She does have some slight photophobia. Patient's symptoms are alleviated by lying in a near flat position. Patient denies any fever. Denies chest tightness. No focal deficits weakness. She has no other symptoms to report. Patient will be seen by neurosurgery and will admit with their plan also note patient has UTI will start on rocephin and did have some blood per rectum will follow up cbc does have hx hemorrhoids. CBC/BMP: 06/06/17 0739 PE at Discharge GENERAL: This is a well-nourished, well-developed patient, in no apparent distress. CARDIOVASCULAR: Regular rate and rhythm without murmurs, gallops, or rubs. RESPIRATORY: Clear to auscultation. Breath sounds equal bilaterally. No wheezes , rales, or rhonchi. GASTROINTESTINAL: Abdomen soft, non-tender, nondistended. Normal active bowel sounds MUSCULOSKELETAL: Extremities without clubbing, cyanosis, or edema. NEURO: Alert & Oriented x4 to person, place, time, situation. 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 05/28/17 debridement of the nose and sinuses, drainage of septal hematoma. There was no sign of CSF leakage from the site of surgery noted with Valsalva maneuver during the procedure. 05/28/17 Lumbar subarachnoid drain on 05/28/[address] until approximately 06/03/17. 06/02/17 metrizamide and nucleotide study was done with injection through the subarachnoid drain with minimal tracer activity at the right superior posterior pledget and no definite contrast noted on post injection CT scan of the sinuses. She was discharged home 06/04 and then returned to ED with c/o persistent csf leak with n/v 06/08/17 CSF leak protocol - CT skull base protocol --> negative study for CSF leak - Case d/w Dr. Bach (06/08/17) --> NO indication for neurosurgical procedure. Neurosurgery will sign off - nucleotide study did indicate extensive sinuse disease. - start Augmentin for sinusitis - start flexeril for prn muscle tension - request Neurology Consultation - anticipate d/c to home 06/10 (2) UTI (urinary tract infection) Status: Acute Plan: - urine culture --> probable contaminant - stop Rocephin - start diflucan (3) Cavitary pneumonia Status: Resolved Plan: hx cavitary lung lesion/mrsa 2016 Gaurav Ovalle DO Jun 10, 2017 15:59
[2017-06-10] MEDS ORDERED: HYDROCORTISONE 1% CREAM 30 GM TOPICAL SCH (16:00)
== END 2017-06-10 18:41 | disposition home or self-care (01) | DRG 92 ==
LOC: NEPC 14:14 → NEDA 17:21 → N05B 21:56
PROVIDERS: ADMIT Hospitalist; ATTEND Hospitalist
DX: G97.82 Other postprocedural complications and disorders of nervous system (principal); G96.0 Cerebrospinal fluid leak; J45.909 Unspecified asthma, uncomplicated; B37.3 Candidiasis of vulva and vagina; K92.1 Melena; F32.9 Major depressive disorder, single episode, unspecified; E87.6 Hypokalemia; R11.2 Nausea with vomiting, unspecified; R00.0 Tachycardia, unspecified; Y83.9 Surgical procedure, unspecified as the cause of abnormal reaction of the patient, or of later complication, without mention of misadventure at the time of the procedure; G47.30 Sleep apnea, unspecified; Z87.891 Personal history of nicotine dependence; M54.81 Occipital neuralgia; J32.9 Chronic sinusitis, unspecified; Z86.14 Personal history of Methicillin resistant Staphylococcus aureus infection; F41.9 Anxiety disorder, unspecified; R31.9 Hematuria, unspecified
CPT/HCPCS: 62270; 70450; 70486; 71010; 76937; 77003; 80048; 80053; 81001; 85025; 85610; 85730; 86850; 86900; 86901; 87086; 96361; 96374; C9113; J0696; J2405; J3480; J7030; Q9967

== ENCOUNTER 2018-01-10 18:20 | Emergency (ER) | payer OTHER ==
[~2018-01-10 18:20] MED LIST changes: +ACET325T15 PO; -ALBU0.08 NEB; +AMOX875T2 PO; -CEFP250T PO; +CLAR10TA7 PO; +CYCL10TA PO; +HYDR-3516 PO; +LACT PO; -LORA-373 PO; +LORA0.5T PO; -MECL-62 PO; -OLOP.1%O EACH EYE; -TYLE325T PO; +guaiFENesin ER PO
[2018-01-10 18:35] VITALS: BP 147/87; PULSE 68; RESP 14; TEMP 97.7; O2SAT 100
[2018-01-10 21:07] LABS: AUTOMATED NEUTROPHIL # 3.7 TH/MM3 (1.8-7.7); BASOPHIL % 0.4 % (0.0-2.0); EOSINOPHIL # 0.1 TH/MM3 (0-0.4); EOSINOPHIL % 1.1 % (0.0-4.0); HEMATOCRIT 37.9 % (35.0-46.0); HEMOGLOBIN 12.4 GM/DL (11.6-15.3); LYMPH % 42.3 % (9.0-44.0); LYMPHOCYTE # 3.2 TH/MM3 (1.0-4.8); MEAN CELL VOLUME 89.6 FL (80.0-100.0); MEAN CORPUSCULAR HEMOGLOBIN 29.3 PG (27.0-34.0); MEAN CORPUSCULAR HGB CONC 32.7 % (32.0-36.0); MEAN PLATELET VOLUME 9.2 FL (7.0-11.0); MONO % 7.7 % (0.0-8.0); MONOCYTE # 0.6 TH/MM3 (0-0.9); NEUT % 48.5 % (16.0-70.0); PLATELET COUNT 279 TH/MM3 (150-450); RED BLOOD COUNT 4.23 MIL/MM3 (4.00-5.30); RED CELL DISTRIBUTION WIDTH 15.1 % (11.6-17.2); WHITE BLOOD COUNT 7.6 TH/MM3 (4.0-11.0)
[2018-01-10 21:12] LABS: AMORPHOUS SEDIMENT, URINE RARE; BILIRUBIN, URINE NEG (NEG); BLOOD, URINE MOD (NEG); CALCIUM OXALATE CRYSTALS,URINE MANY /hpf; GLUCOSE,URINE NEG (NEG); KETONE, URINE NEG (NEG); MUCUS URINE FEW /lpf (OCC); NITRITE,URINE NEG (NEG); SQUAMOUS EPITHELIAL CELL URINE 1 /hpf (0-5); URINE COLOR YELLOW (YELLW/STRAW); URINE LEUKOCYTE ESTERASE NEG (NEG)
[2018-01-10 21:26] LABS: AST (GOT) 10 U/L (15-37); BICARBONATE 23.1 MEQ/L (21.0-32.0); BLOOD UREA NITROGEN 13 MG/DL (7-18); CALCIUM 9.1 MG/DL (8.5-10.1); CHLORIDE 108 MEQ/L (98-107); CREATININE 0.87 MG/DL (0.50-1.00); GLOMERULAR FILTRATION RATE 77 ML/MIN (>89); GLUCOSE,RANDOM 85 MG/DL (74-106); SODIUM (NA) 142 MEQ/L (136-145)
[2018-01-10 21:27] LABS: ALT (GPT) 17 U/L (10-53)
[2018-01-10 21:29] LABS: ALKALINE PHOSPHATASE 76 U/L (45-117); C-REACTIVE PROTEIN 0.56 MG/DL (0.00-0.30); TOTAL BILIRUBIN ADULT 0.2 MG/DL (0.2-1.0); TOTAL PROTEIN 7.5 GM/DL (6.4-8.2)
[2018-01-10] MEDS ORDERED: TOPI25 PO (22:31)
[2018-01-10] MEDS ORDERED: VALT1TAB PO (22:31)
--- NOTE | 2018-01-10 22:32 | PD ---
HPI Chief Complaint: Musculoskeletal Complaint Time Seen by Provider: 22:15 Travel History International Travel<30 days: No Contact w/Intl Traveler<30days: No Traveled to known affect area: No History of Present Illness HPI Sit 27-year-old woman presents emergency department complaining of all over body pain and muscle aches. She she has been diagnosed with chronic fatigue syndrome. She has been taking Valtrex. She also she has recurrent yeast infections and thrush has been taking fluconazole. She is over the past week or 2 she has been having body aches and pains everywhere. No urinary symptoms. No fevers or chills. She follows with Dr. Richter. She has had multiple workups for lupus and RA and her mean panels have all been negative. States her human herpes virus 6 levels were elevated and so she is taking the Valtrex. History Past Medical History Narrative Medical "Chronic fatigue syndrome" Tetanus Vaccination: > 5 Years Influenza Vaccination: No LMP: CURRENT : 0 Para: 0 Social History Alcohol Use: No Tobacco Use: No (QUIT 04/2015, 1 PPD prior) Allergies-Medications (Allergen,Severity, Reaction): Coded Allergies: basil (Unverified Allergy, Severe, HIVES, 01/10/18) ciprofloxacin (Unverified Allergy, Severe, Hives, 01/10/18) "FELT LIKE SOMEONE WAS TEARING MY MUSCLES" doxycycline (Unverified Allergy, Severe, Anaphylaxis, 01/10/18) levofloxacin (Unverified Allergy, Severe, Hives, 01/10/18) "FELT LIKE SOMEONE WAS TEARING MY MUSCLES" linezolid (Unverified Allergy, Severe, Anaphylaxis, 01/10/18) nitrofurantoin (Unverified Allergy, Severe, Nausea/Vomiting, 01/10/18) pecan nut (Unverified Allergy, Severe, Hives, 01/10/18) codeine (Unverified Adverse Reaction, Mild, "I BECOME CRAZY", 01/10/18) sulfamethoxazole (Unverified Adverse Reaction, Mild, n/v, 01/10/18) trimethoprim (Unverified Adverse Reaction, Mild, n/v, 01/10/18) *MDRO Multi-Drug Resistant Organism (Verified Adverse Reaction, Unknown, ) MRSA (sputum-08/22/16); MRSA (neck-08/20/16) Uncoded Allergies: PEANUT BUTTER (Allergy, Severe, Hives, 05/25/17) ALL NUTS (Allergy, Unknown, 05/27/17) Reported Meds & Prescriptions Reported Meds & Active Scripts Active [guaiFENesin ER] 600 MG Tabcr 600 Mg PO BID Claritin (Loratadine) 10 Mg Tablet 10 Mg PO DAILY Acidophilus/l-Sporogenes (Lactobacillus Acidophilus) 1 Tab Tab 1 Tab PO Q12HR Hydrocodone-Acetaminophen 5-325 mg Tab 1 Tab PO Q4H PRN Flexeril (Cyclobenzaprine HCl) 10 Mg Tab 10 Mg PO Q8HR PRN Amoxicillin-Clavulanate 875-125 mg Tab 875 Mg PO Q12HR Eq Acetaminophen (Acetaminophen) 325 Mg Tab 650 Mg PO Q4H PRN 30 Days Reported Lorazepam 0.5 Mg Tab 0.5 Mg PO DAILY PRN Breo Ellipta Inh (Fluticasone/Vilanterol) 100-25 Mcg/Act Inh 1 Puff INH DAILY Use daily at the same time. Ventolin Hfa 18 GM Inh (Albuterol Sulfate) 90 Mcg/Act Aer 1 Puff INH Q4H PRN Review of Systems Except as stated in HPI: all other systems reviewed are Neg Physical Exam Narrative GENERAL: Well-appearing 27-year-old woman, no acute distress. SKIN: Focused skin assessment warm/dry. HEAD: Atraumatic. Normocephalic. EYES: Pupils equal and round. No scleral icterus. No injection or drainage. ENT: No nasal bleeding or discharge. Mucous membranes pink and moist. NECK: Trachea midline. No JVD. CARDIOVASCULAR: Regular rate and rhythm. No murmur appreciated. RESPIRATORY: No accessory muscle use. Clear to auscultation. Breath sounds equal bilaterally. GASTROINTESTINAL: Abdomen soft, non-tender, nondistended. Hepatic and splenic margins not palpable. MUSCULOSKELETAL: No obvious deformities. No clubbing. No cyanosis. No edema. NEUROLOGICAL: Awake and alert. No obvious cranial nerve deficits. Motor grossly within normal limits. Normal speech. Data Data Last Documented VS Vital Signs Date Time Temp Pulse Resp B/P (MAP) Pulse Ox O2 Delivery O2 Flow Rate FiO2 01/10/18 18:35 97.7 68 14 147/87 (107) 100 Orders Orders Complete Blood Count With Diff (01/10/18 18:39) Comprehensive Metabolic Panel (01/10/18 18:39) C-Reactive Protein (Crp) (01/10/18 18:39) Urinalysis - C+S If Indicated (01/10/18 18:40) Creatine Kinase (Cpk) (01/10/18 18:40) Ed Urine Pregnancytest Poc (01/10/18 18:40) Labs Laboratory Tests Test 01/10/18 20:34 White Blood Count 7.6 TH/MM3 Red Blood Count 4.23 MIL/MM3 Hemoglobin 12.4 GM/DL Hematocrit 37.9 % Mean Corpuscular Volume 89.6 FL Mean Corpuscular Hemoglobin 29.3 PG Mean Corpuscular Hemoglobin Concent 32.7 % Red Cell Distribution Width 15.1 % Platelet Count 279 TH/MM3 Mean Platelet Volume 9.2 FL Neutrophils (%) (Auto) 48.5 % Lymphocytes (%) (Auto) 42.3 % Monocytes (%) (Auto) 7.7 % Eosinophils (%) (Auto) 1.1 % Basophils (%) (Auto) 0.4 % Neutrophils # (Auto) 3.7 TH/MM3 Lymphocytes # (Auto) 3.2 TH/MM3 Monocytes # (Auto) 0.6 TH/MM3 Eosinophils # (Auto) 0.1 TH/MM3 Basophils # (Auto) 0.0 TH/MM3 CBC Comment DIFF FINAL Differential Comment Urine Color YELLOW Urine Turbidity HAZY Urine pH 6.0 Urine Specific [place] 1.021 Urine Protein NEG mg/dL Urine Glucose (UA) NEG mg/dL Urine Ketones NEG mg/dL Urine Occult Blood MOD Urine Nitrite NEG Urine Bilirubin NEG Urine Urobilinogen LESS THAN 2.0 MG/DL Urine Leukocyte Esterase NEG Urine RBC 105 /hpf Urine WBC 4 /hpf Urine Squamous Epithelial Cells 1 /hpf Urine Calcium Oxalate Crystals MANY /hpf Urine Amorphous Sediment RARE Urine Mucus FEW /lpf Microscopic Urinalysis Comment CULT NOT INDICATED Blood Urea Nitrogen 13 MG/DL Creatinine 0.87 MG/DL Random Glucose 85 MG/DL Total Protein 7.5 GM/DL Albumin 4.0 GM/DL Calcium Level 9.1 MG/DL Alkaline Phosphatase 76 U/L Aspartate Amino Transf (AST/SGOT) 10 U/L Alanine Aminotransferase (ALT/SGPT) 17 U/L Total Bilirubin 0.2 MG/DL Sodium Level 142 MEQ/L Potassium Level 3.6 MEQ/L Chloride Level 108 MEQ/L Carbon Dioxide Level 23.1 MEQ/L Anion Gap 11 MEQ/L Estimat Glomerular Filtration Rate 77 ML/MIN Total Creatine Kinase 62 U/L C-Reactive Protein 0.56 MG/DL MDM Medical Decision Making Medical Screen Exam Complete: Yes Emergency Medical Condition: Yes Interpretation(s) LABS: CBC unremarkable. CMP unremarkable. Total CK 62 CRP 0.56 UA with red blood cells, patient on her menses Differential Diagnosis Rheumatologic disease, immune disease, psychosomatic disease, other Narrative Course Medical decision making 27-year-old woman generalized body aches in the setting of chronic fatigue. Workups negative. No evidence of rhabdomyolysis. Recommend outpatient follow- up. Diagnosis Primary Impression: Body aches Patient Instructions: General Instructions Additional Instructions: Take Aleve as needed for body aches. Follow-up with Dr. Richter. I recommend you follow-up with a rn family practice for further evaluation. Return to the emergency department for any new or worsening symptoms. Disposition: 01 DISCHARGE HOME Condition: Stable Cesar Kaiser MD Jan 10, 2018 22:32
== END 2018-01-10 22:38 | disposition home or self-care (01) ==
LOC: NED 18:20 → NEPD 22:38
DX: R52 Pain, unspecified (principal); R53.82 Chronic fatigue, unspecified; Z79.899 Other long term (current) drug therapy; Z87.891 Personal history of nicotine dependence; Z88.1 Allergy status to other antibiotic agents; Z88.5 Allergy status to narcotic agent; Z88.2 Allergy status to sulfonamides
CPT/HCPCS: 80053; 81001; 82550; 84703; 85025; 86140; 99283

== ENCOUNTER 2018-03-04 19:51 | Emergency (ER) | payer OTHER ==
[~2018-03-04 19:51] MED LIST changes: -ACET325T15 PO; -AMOX875T2 PO; -CLAR10TA7 PO; -CYCL10TA PO; -HYDR-3516 PO; -LACT PO; +TOPI25 PO; +VALT1TAB PO; -guaiFENesin ER PO
[2018-03-04 20:02] VITALS: BP 133/73; PULSE 78; RESP 16; TEMP 99.2; O2SAT 100
[2018-03-04] MEDS ORDERED: CYAN1000P IM (21:03)
[2018-03-04] MEDS ORDERED: LEVO50TA4 PO (21:03)
--- NOTE | 2018-03-04 21:43 | PD ---
HPI . 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 She is regular every 23 days like clockwork she says. She is having lower abdominal cramps and she is also having epigastric pain across the upper right and left abdomen. She is recently increased her levoxyl from 25mcg to 50 mcg . Se also has diarrhea and nausea and hot flashes , thinks she is ,. SHe also has chronic fatigue syndrome that she thinks is getting worse. bedside PFSH Past Medical History Hx Anticoagulant Therapy: No Arthritis: No Asthma: Yes Autoimmune Disease: No Blood Disorders: No Anxiety: Yes Depression: Yes Cancer: No Cardiovascular Problems: No Chemotherapy: No Cerebrovascular Accident: No Diabetes: No Diminished Hearing: No Endocrine: No Genitourinary: No Headaches: Yes Hepatitis: No Hiatal Hernia: No Immune Disorder: No Implanted Vascular Access Dvce: Yes Medical other: Yes (VITAMIN B-12 DEFICIENCY, HERPES 6 LEVEL ELEVATED "CHRONIC FATIGUE SYNDROME") Musculoskeletal: No Neurologic: Yes (CHRONIC MIGRAINES) Psychiatric: No Reproductive: No Respiratory: Yes (ASTHMA SLEEP APNEA) Integumentary: Yes (MRSA: "BEHIND MY RIGHT EAR") Immunizations Current: Yes Migraines: Yes Pneumonia: Yes Seizures: No Sleep Apnea: Yes Thyroid Disease: Yes (HYPOTHYROIDISM) Influenza Vaccination: Yes ?: Unknown LMP: 4-5 WEEKS AGO : 0 Para: 0 Ovarian Cysts: Yes (2006) Past Surgical History Abdominal Surgery: No AICD: No Body Medical Devices: NOSE & TONGUE PIERCINGS Cardiac Surgery: No Ear Surgery: No Endocrine Surgery: No Eye Surgery: No Genitourinary Surgery: No Gynecologic Surgery: No Hysterectomy: No Joint Replacement: No Oral Surgery: Yes (FRENULECTOMY) Pacemaker: No Thoracic Surgery: Yes (BREAST REDUCTION) Tonsillectomy: Yes (ADENOIDS) Social History Alcohol Use: No Tobacco Use: No (QUIT 04/2015, 1 PPD prior) Substance Use: No Allergies-Medications (Allergen,Severity, Reaction): Coded Allergies: basil (Verified Allergy, Severe, HIVES, 03/04/18) ciprofloxacin (Verified Allergy, Severe, Hives, 03/04/18) "FELT LIKE SOMEONE WAS TEARING MY MUSCLES" doxycycline (Verified Allergy, Severe, Anaphylaxis, 03/04/18) levofloxacin (Verified Allergy, Severe, Hives, 03/04/18) "FELT LIKE SOMEONE WAS TEARING MY MUSCLES" linezolid (Verified Allergy, Severe, Anaphylaxis, 03/04/18) nitrofurantoin (Verified Allergy, Severe, Nausea/Vomiting, 03/04/18) pecan nut (Verified Allergy, Severe, Hives, 03/04/18) codeine (Verified Adverse Reaction, Mild, "I BECOME CRAZY", 03/04/18) sulfamethoxazole (Verified Adverse Reaction, Mild, n/v, 03/04/18) trimethoprim (Verified Adverse Reaction, Mild, n/v, 03/04/18) *MDRO Multi-Drug Resistant Organism (Verified Adverse Reaction, Unknown, ) MRSA (sputum-08/22/16); MRSA (neck-08/20/16) Uncoded Allergies: PEANUT BUTTER (Allergy, Severe, Hives, 05/25/17) ALL NUTS (Allergy, Unknown, 05/27/17) Reported Meds & Prescriptions Reported Meds & Active Scripts Active Reported Cyanocobalamin Inj (Cyanocobalamin) 1,000 Mcg/Ml Inj 1,000 Mcg IM Q30D Levothyroxine (Levothyroxine Sodium) 50 Mcg Tab 50 Mcg PO DAILY Topamax (Topiramate) 25 Mg Tab 25 Mg PO HS Lorazepam 0.5 Mg Tab 0.5 Mg PO DAILY PRN Breo Ellipta Inh (Fluticasone/Vilanterol) 100-25 Mcg/Act Inh 1 Puff INH DAILY Use daily at the same time. Ventolin Hfa 18 GM Inh (Albuterol Sulfate) 90 Mcg/Act Aer 1 Puff INH Q4H PRN Review of Systems Except as stated in HPI: all other systems reviewed are Neg Physical Exam Narrative GENERAL: obese SKIN: Warm and dry. HEAD: Atraumatic. Normocephalic. EYES: Pupils equal and round. No scleral icterus. No injection or drainage. ENT: No nasal bleeding or discharge. Mucous membranes pink and moist. NECK: Trachea midline. No JVD. CARDIOVASCULAR: Regular rate and rhythm. RESPIRATORY: No accessory muscle use. Clear to auscultation. Breath sounds equal bilaterally. GASTROINTESTINAL: Abdomen obese with diffuse abdo pain Hepatic and splenic margins not palpable. MUSCULOSKELETAL: Extremities without clubbing, cyanosis, or edema. No obvious deformities. NEUROLOGICAL: Awake and alert. No obvious cranial nerve deficits. Motor grossly within normal limits. Five out of 5 muscle strength in the arms and legs. Normal speech. PSYCHIATRIC: Appropriate mood and affect; insight and judgment normal. Data Data Last Documented VS Vital Signs Date Time Temp Pulse Resp B/P (MAP) Pulse Ox O2 Delivery O2 Flow Rate FiO2 03/04/18 23:58 03/04/18 22:59 81 16 100 Room Air 03/04/18 20:02 99.2 Orders Orders Complete Blood Count With Diff (03/04/18 21:35) Thyroid Stimulating Hormone (03/04/18 21:35) Comprehensive Metabolic Panel (03/04/18 21:35) Lipase (03/04/18 21:35) Urinalysis - C+S If Indicated (03/04/18 21:35) Famotidine Inj (Pepcid Inj) (03/04/18 21:45) Sodium Chlor 0.9% 1000 Ml Inj (Ns 1000 M (03/04/18 21:45) Beta Hcg (Quant/Titer) (03/04/18 21:35) Ketorolac Inj (Toradol Inj) (03/04/18 23:45) Ed Discharge Order (03/04/18 23:53) Labs Laboratory Tests Test 03/04/18 21:50 03/04/18 21:53 White Blood Count 8.8 TH/MM3 Red Blood Count 4.31 MIL/MM3 Hemoglobin 12.9 GM/DL Hematocrit 37.5 % Mean Corpuscular Volume 87.0 FL Mean Corpuscular Hemoglobin 30.0 PG Mean Corpuscular Hemoglobin Concent 34.5 % Red Cell Distribution Width 13.4 % Platelet Count 225 TH/MM3 Mean Platelet Volume 9.4 FL Neutrophils (%) (Auto) 61.9 % Lymphocytes (%) (Auto) 30.8 % Monocytes (%) (Auto) 6.2 % Eosinophils (%) (Auto) 0.7 % Basophils (%) (Auto) 0.4 % Neutrophils # (Auto) 5.5 TH/MM3 Lymphocytes # (Auto) 2.7 TH/MM3 Monocytes # (Auto) 0.5 TH/MM3 Eosinophils # (Auto) 0.1 TH/MM3 Basophils # (Auto) 0.0 TH/MM3 CBC Comment DIFF FINAL Differential Comment Blood Urea Nitrogen 12 MG/DL Creatinine 0.72 MG/DL Random Glucose 84 MG/DL Total Protein 7.6 GM/DL Albumin 3.9 GM/DL Calcium Level 8.8 MG/DL Alkaline Phosphatase 75 U/L Aspartate Amino Transf (AST/SGOT) 10 U/L Alanine Aminotransferase (ALT/SGPT) 19 U/L Total Bilirubin 0.3 MG/DL Sodium Level 140 MEQ/L Potassium Level 3.5 MEQ/L Chloride Level 108 MEQ/L Carbon Dioxide Level 24.5 MEQ/L Anion Gap 8 MEQ/L Estimat Glomerular Filtration Rate 96 ML/MIN Lipase 182 U/L Thyroid Stimulating Hormone 3rd Gen 2.560 uIU/ML Human Chorionic Gonadotropin, Quant LESS THAN 1 MIU/ML Urine Color YELLOW Urine Turbidity CLEAR Urine pH 7.0 Urine Specific [place] 1.020 Urine Protein NEG mg/dL Urine Glucose (UA) NEG mg/dL Urine Ketones NEG mg/dL Urine Occult Blood NEG Urine Nitrite NEG Urine Bilirubin NEG Urine Urobilinogen 0.2 MG/DL Urine Leukocyte Esterase NEG Urine RBC 0-3 /hpf Urine WBC 0-2 /hpf Urine Squamous Epithelial Cells 0-5 /hpf Urine Amorphous Sediment FEW Microscopic Urinalysis Comment CULT NOT INDICATED MDM Medical Decision Making Medical Screen Exam Complete: Yes Emergency Medical Condition: Yes Differential Diagnosis hypothyroid vs vs med reaction to synthriod vs chronic fatigue syndrome other Narrative Course all labs normal BHCG negative not and TSH normal range. pt encouraged to follow up with her PCP for other medication options Diagnosis Primary Impression: Abdominal pain Qualified Codes: R10.9 - Unspecified abdominal pain Patient Instructions: Abdominal Pain (ED), Chronic Fatigue Syndrome (ED), General Instructions Disposition: 01 DISCHARGE HOME Condition: Saede Reese MD March 04, 2018 21:43
[2018-03-04] MEDS ORDERED: SODIUM CHLOR 0.9% 1000 ML INJ 1,000 ML IV ONE (21:45)
[2018-03-04] MEDS ORDERED: FAMOTIDINE 20 MG/2 ML VIAL IV PUSH SCH (21:45)
[2018-03-04 22:01] LABS: BILIRUBIN, URINE NEG (NEG); BLOOD, URINE NEG (NEG); GLUCOSE,URINE NEG (NEG); KETONE, URINE NEG (NEG); NITRITE,URINE NEG (NEG); URINE COLOR YELLOW (YELLW/STRAW); URINE LEUKOCYTE ESTERASE NEG (NEG)
[2018-03-04 22:04] LABS: AUTOMATED NEUTROPHIL # 5.5 TH/MM3 (1.8-7.7); BASOPHIL % 0.4 % (0.0-2.0); EOSINOPHIL # 0.1 TH/MM3 (0-0.4); EOSINOPHIL % 0.7 % (0.0-4.0); HEMATOCRIT 37.5 % (35.0-46.0); HEMOGLOBIN 12.9 GM/DL (11.6-15.3); LYMPH % 30.8 % (9.0-44.0); LYMPHOCYTE # 2.7 TH/MM3 (1.0-4.8); MEAN CORPUSCULAR HGB CONC 34.5 % (32.0-36.0); MEAN PLATELET VOLUME 9.4 FL (7.0-11.0); MONO % 6.2 % (0.0-8.0); MONOCYTE # 0.5 TH/MM3 (0-0.9); NEUT % 61.9 % (16.0-70.0); PLATELET COUNT 225 TH/MM3 (150-450); RED BLOOD COUNT 4.31 MIL/MM3 (4.00-5.30); RED CELL DISTRIBUTION WIDTH 13.4 % (11.6-17.2); WHITE BLOOD COUNT 8.8 TH/MM3 (4.0-11.0)
[2018-03-04 22:09] LABS: CHLORIDE 108 MEQ/L (98-107); SODIUM (NA) 140 MEQ/L (136-145)
[2018-03-04 22:12] LABS: RBC, URINE 0-3 /hpf (0-3); SQUAMOUS EPITHELIAL CELL URINE 0-5 /hpf (0-5); WBC, URINE 0-2 /hpf (0-5)
[2018-03-04 22:13] LABS: AMORPHOUS SEDIMENT, URINE FEW
[2018-03-04 22:13] LABS: ALBUMIN 3.9 GM/DL (3.4-5.0); BICARBONATE 24.5 MEQ/L (21.0-32.0); CALCIUM 8.8 MG/DL (8.5-10.1); GLUCOSE,RANDOM 84 MG/DL (74-106)
[2018-03-04 22:14] LABS: BLOOD UREA NITROGEN 12 MG/DL (7-18)
[2018-03-04 22:16] LABS: ALT (GPT) 19 U/L (10-53); CREATININE 0.72 MG/DL (0.50-1.00); GLOMERULAR FILTRATION RATE 96 ML/MIN (>89)
[2018-03-04 22:17] LABS: AST (GOT) 10 U/L (15-37); TOTAL BILIRUBIN ADULT 0.3 MG/DL (0.2-1.0)
[2018-03-04 22:18] LABS: ALKALINE PHOSPHATASE 75 U/L (45-117); TOTAL PROTEIN 7.6 GM/DL (6.4-8.2)
[2018-03-04 22:59] VITALS: BP 129/67; PULSE 81; RESP 16; O2SAT 100
[2018-03-04] MEDS ORDERED: KETOROLAC TROMETHAMINE 30 MG/ML (IVP) VIAL IV PUSH ONE (23:45)
== END 2018-03-04 23:58 | disposition home or self-care (01) ==
LOC: PHED 19:51
DX: R10.9 Unspecified abdominal pain (principal); R19.7 Diarrhea, unspecified; E03.9 Hypothyroidism, unspecified; F32.9 Major depressive disorder, single episode, unspecified; F41.9 Anxiety disorder, unspecified; J45.909 Unspecified asthma, uncomplicated; G47.30 Sleep apnea, unspecified; R53.82 Chronic fatigue, unspecified; Z87.891 Personal history of nicotine dependence
CPT/HCPCS: 80053; 81001; 83690; 84443; 84702; 85025; 96361; 96374; 99284; J1885; J7030